=== PATIENT | female | born 1990 | race Caucasian/White ===

== ENCOUNTER → 2020-11-17 13:28 | Outpatient (BNVA) | payer OTHER, SELFPAY | PROVIDERS: Family Provider Family Medicine; PCP Electrodiagnostic Medicine; Visit Provider Nurse Practitioner Women's Health | DX: N92.6 Irregular menstruation, unspecified (principal); K21.9 Gastro-esophageal reflux disease without esophagitis; E28.2 Polycystic ovarian syndrome; I10 Essential (primary) hypertension; J45.40 Moderate persistent asthma, uncomplicated; F41.9 Anxiety disorder, unspecified | CPT/HCPCS: 81025 ==

== ENCOUNTER → 2020-12-28 10:52 | Outpatient (BNVA) | payer OTHER, MEDICAID, SELFPAY | PROVIDERS: Family Provider Family Medicine; PCP Electrodiagnostic Medicine; Visit Provider Obstetrics & Gynecology | DX: O09.899 Supervision of other high risk pregnancies, unspecified trimester (principal); Z3A.00 Weeks of gestation of pregnancy not specified | CPT/HCPCS: 80053; 80307; 82570; 82950; 83036; 84156; 84315; 84443; 84550; 85027; 86592; 86762; 86803; 86850; 86900; 87086; 87340 ==

== ENCOUNTER → 2020-12-31 08:09 | Outpatient (BNVA) | payer OTHER, SELFPAY | PROVIDERS: Family Provider Family Medicine; PCP Electrodiagnostic Medicine; Visit Provider Obstetrics & Gynecology | DX: O09.899 Supervision of other high risk pregnancies, unspecified trimester (principal); Z3A.00 Weeks of gestation of pregnancy not specified | CPT/HCPCS: 82951; 82952 ==

== ENCOUNTER → 2021-01-04 08:24 | Outpatient (BNVA) | payer OTHER, SELFPAY | PROVIDERS: Family Provider Family Medicine; PCP Electrodiagnostic Medicine; Visit Provider Obstetrics & Gynecology | DX: O09.899 Supervision of other high risk pregnancies, unspecified trimester (principal); O34.219 Maternal care for unspecified type scar from previous cesarean delivery; Z3A.00 Weeks of gestation of pregnancy not specified | CPT/HCPCS: 84315; 87491; 87591 ==

== ENCOUNTER → 2021-01-25 00:01 | Outpatient (BNVA) | payer OTHER, SELFPAY | PROVIDERS: Family Provider Family Medicine; PCP Electrodiagnostic Medicine; Visit Provider Obstetrics & Gynecology | DX: I10 Essential (primary) hypertension (principal) | CPT/HCPCS: 84156 ==

== ENCOUNTER 2021-01-31 09:20 | Outpatient (CLI) | payer OTHER, MEDICAID, SELFPAY ==
--- NOTE | 2021-01-31 09:30 | USCV_ITS ---
Chloe Dorman Age: 30 Gender: F : 1990 Exam Date: 01/31/2021 09:42 Ordering Phys: Jacobo Villarreal MD Technologist: Carla Bowers [place] [facility] [place]: ESSENTIAL HTN, 16 WEEKS BP: 120 / 75 HR: 83 Rhythm: Sinus Technical Quality: Adequate MEASUREMENTS (Male / Female) Normal Values 2D ECHO LV Diastolic Diameter PLAX 3.9 cm 4.2 - 5.9 / 3.9 - 5.3 cm LV Systolic Diameter PLAX 2.3 cm IVS Diastolic Thickness 1.0 cm 0.6 - 1.0 / 0.6 - 0.9 cm IVS Systolic Thickness 1.3 cm LVPW Diastolic Thickness 1.5 cm 0.6 - 1.0 / 0.6 - 0.9 cm LVPW Systolic Thickness 1.9 cm LVOT Diameter 2.0 cm LV Ejection Fraction 2D Teich 73.0 % LV Ejection Fraction MOD 2C 79.4 % LV Ejection Fraction 2C AL 80.1 % LA Diameter 2.3 cm LA Width 2.7 cm LA Height 5.0 cm RA Width 2.7 cm RA Height 3.7 cm Aorta at Sinotubular Diameter 2.8 cm DOPPLER AV Peak Velocity 147.0 cm/s LVOT Peak Velocity 108.0 cm/s AV Area Cont Eq vti 2.3 cm squared AV Area Cont Eq pk 2.4 cm squared MV Peak Velocity 107.0 cm/s MV Area PHT 4.2 cm squared Mitral E to A Ratio 1.0 MV E' Velocity 44.0 cm/s Mitral E to MV E' Ratio 9.2 Mitral E to LV E' Lateral Ratio 8.9 Mitral E to LV E' Septal Ratio 9.7 TR Peak Velocity 94.3 cm/s TR Peak Gradient 3.6 mmHg Right Atrial Pressure 3.0 mmHg Pulmonary Artery Systolic Pressu 6.6 mmHg PV Peak Velocity 107.0 cm/s RV Acceleration Time 0.2 s RV Ejection Time 0.3 s RV AcT/ET 0.5 FINDINGS Left Ventricle Normal left ventricular size and systolic function, EF 71 %. No regional wall motion abnormalities. Right Ventricle The right ventricle is normal in size and function. Right Atrium The right atrium is normal in size. Left Atrium The left atrium is normal in size. Mitral Valve Trace mitral valve regurgitation. Aortic Valve Structurally normal trileaflet aortic valve. Tricuspid Valve No gross abnormalities noted Pulmonic Valve No gross abnormalities noted Pericardium Normal pericardium without effusion. Aorta Normal ascending aorta dimension. CONCLUSIONS Normal left ventricular size and systolic function, EF 71 %. No regional wall motion abnormalities. Trace mitral valve regurgitation. Normal cardiac chamber sizes. No intracardiac masses No intracardiac shunts by color flow Doppler exam No previous study is available for comparison. Dr Austin Whitaker MD FACC (Electronically Signed) Final Date: 31 January 2021 23:04 S
== END 2021-01-31 09:21 | disposition home or self-care (01) ==
LOC: US 09:22
PROVIDERS: PCP Electrodiagnostic Medicine; Visit Provider Obstetrics & Gynecology
DX: O10.012 Pre-existing essential hypertension complicating pregnancy, second trimester (principal); I34.0 Nonrheumatic mitral (valve) insufficiency
CPT/HCPCS: 93306

== ENCOUNTER 2021-03-03 12:39 | Outpatient (CLI) | payer OTHER, MEDICAID, SELFPAY ==
--- NOTE | 2021-03-03 12:58 | ECG_ITS ---
[facility] Test Date: 2021-03-03 Pat Name: Chloe Dorman Department: Room: Gender: Female Interactive Producer: : 1990 Requested By: Jacobo Villarreal Order Number: [id number] Cassidy MD: Enrrique Blackburn M.D. Measurements Intervals [place] Rate: 84 P: 13 NM: 130 QRS: 28 QRSD: 101 T: 21 QT: 374 QTc: 445 Interpretive Statements SINUS RHYTHM Compared to ECG 03/08/2019 19:12:15 Short NM interval no longer present Electronically Signed On 03-03-2021 17:13:55 CDT by Enrrique Blackburn M.D. [id number] f
== END 2021-03-03 12:40 | disposition home or self-care (01) ==
LOC: RT 12:42
PROVIDERS: PCP Electrodiagnostic Medicine; Visit Provider Obstetrics & Gynecology
DX: I10 Essential (primary) hypertension (principal)
CPT/HCPCS: 93005

== ENCOUNTER 2021-04-16 10:55 | Outpatient (CLI) | payer OTHER, MEDICAID, SELFPAY ==
[2021-04-16] VITALS (17 sets, daily range): BP systolic 125–173; BP diastolic 68–103; PULSE 67–99; RESP 18; TEMP 36.8; O2SAT 97–99; BMI 39.4
[2021-04-16] MEDS: labetalol 200 mg Tablet 100 MG PO (12:18)
[2021-04-16 13:09] LABS: Bacteria Urine 1+ /hpf; Bilirubin Urine Neg (Negative); Blood Urine Neg (Negative); Glucose Urine UA Norm (Normal); Ketones Urine Negative (Negative); Leukocyte Esterase Urine Negative (Negative); Nitrate Urine Negative (Negative); Protein Urine Neg (Negative); Specific Gravity, Urine 1.015 (1.005-1.030); Urine Appearance Clear (CLEAR); Urine Color Yellow (Yellow); Urobilinogen Urine Norm (Negative); WBC Urine 0-4 /hpf (0-5); pH Urine 7 (5-7)
[2021-04-16 13:10] LABS: Add Urine Culture? No
[2021-04-16 13:55] LABS: Basophils # 0.1 10^3/uL (0.0-0.1); Basophils % 0.3 %; Eosinophils # 0.1 10^3/uL (0.0-0.8); Eosinophils % 0.9 %; Hematocrit 37.2 % (37.0-47.0); Hemoglobin 11.9 g/dL (11.5-15.3); Lymphocytes # 1.9 10^3/uL (0.8-4.8); Lymphocytes % 12.9 %; Mean Corpuscular Hemoglobin 27.5 pg (28.0-34.0); Mean Corpuscular Volume 86.1 fl (81-99); Monocytes % 6.6 %; Neutrophils # 11.51 10^3/uL (1.8-7.7); Neutrophils % 78.9 %; Nucleated Red Blood Cells % 0 %; Platelet Count 293 10^3/cmm (130-400); Red Blood Count 4.32 10^6/uL (4.1-5.3); Red Cell Distribution Width 13.2 % (12.1-15.1); White Blood Count 14.6 10^3/uL (4.0-10.0)
[2021-04-16 14:19] LABS: Alanine Aminotransferase 9 U/L (0-33); Albumin Level 3.3 g/dL (3.5-5.2); Alkaline Phosphatase 72 IU/L (35-105); Anion Gap 16.8 (5-19); Aspartate Amino Transferase 9 U/L (0-32); Blood Urea Nitrogen 6 mg/dL (6-20); Calcium 8.6 mg/dL (8.5-10.5); Carbon Dioxide 21 mmol/L (22-29); Chloride 106 mmol/L (98-107); Globulin 2.8 g/dL (1.3-4.6); Glucose 80 mg/dL (65-115); Osmolality Calculated 287 mOsm/kg (285-295); Potassium 3.8 mmol/L (3.5-5.1); Sodium 140 mmol/L (136-145); Total Bilirubin 0.2 mg/dL (0.15-1.2); Total Protein 6.1 g/dL (6.6-8.7); Uric Acid 3.8 mg/dL (2.4-5.7)
[2021-04-16 14:24] LABS: UPRO/UCREAT Ratio 0.21 mg/mg CR; Urine Creatinine 53 mg/dL (28-217); Urine Protein Random 11 mg/dL
== END 2021-04-16 14:45 | disposition home or self-care (01) ==
LOC: OPOB 10:59 → OBGYN 11:00
PROVIDERS: PCP Electrodiagnostic Medicine; Visit Provider Obstetrics & Gynecology
DX: O36.8190 Decreased fetal movements, unspecified trimester, not applicable or unspecified (principal); Z3A.00 Weeks of gestation of pregnancy not specified
CPT/HCPCS: 36415; 59025; 80053; 81001; 82570; 84156; 84550; 85025; 99211

== ENCOUNTER → 2021-04-25 08:06 | Outpatient (BNVA) | payer OTHER, MEDICAID, SELFPAY | PROVIDERS: PCP Electrodiagnostic Medicine; Visit Provider Obstetrics & Gynecology | DX: O09.899 Supervision of other high risk pregnancies, unspecified trimester (principal) | CPT/HCPCS: 82951; 82952; 84315; 85027 ==

== ENCOUNTER → 2021-05-04 14:13 | Outpatient (BNVA) | payer OTHER, MEDICAID, SELFPAY | PROVIDERS: PCP Electrodiagnostic Medicine; Visit Provider Obstetrics & Gynecology | DX: O09.899 Supervision of other high risk pregnancies, unspecified trimester (principal) | CPT/HCPCS: 81000 ==

== ENCOUNTER → 2021-05-09 13:12 | Outpatient (BNVA) | payer OTHER, MEDICAID, SELFPAY | PROVIDERS: PCP Electrodiagnostic Medicine; Visit Provider Obstetrics & Gynecology | DX: O09.899 Supervision of other high risk pregnancies, unspecified trimester (principal) | CPT/HCPCS: 84315; 87635 ==

== ENCOUNTER 2021-05-30 09:25 | Outpatient (CLI) | payer OTHER, MEDICAID, SELFPAY ==
[2021-05-30 09:30] VITALS: BMI 37.4
[2021-05-30 09:38] VITALS: BP 122/79; PULSE 82
[2021-05-30 09:43] VITALS: RESP 18; TEMP 36.7
--- NOTE | 2021-05-30 09:43 | US_ITS ---
WS: [id number] BIOPHYSICAL PROFILE AMNIOTIC FLUID HISTORY: Gestational DM, HTN COMPARISON: 05/23/2019 Cardiac activity: 147 bpm. Cervix: closed. Placenta: Posterior, no previa or abruption. Placenta grade: 2 Parameters are as follows: Breathin Movement: 2 Tone: 2 Fluid volume: 2 Amniotic fluid index: 10.8 cm which is between the fifth and 50th percentile. Largest vertical pocket 5.6 cm. US/US OB BPP wo NST 16980 IMPRESSION: 1. Biophysical profile score: 8/8. 2. Low normal amniotic fluid index.
[2021-05-30 09:58] VITALS: BP 117/75; PULSE 78
--- NOTE | 2021-05-30 11:20 | PM.ACPR ---
Procedure/Consent Procedure Narrative: NONSTRESS TEST: Place of test: [facility]-Labor and Delivery Indication: 31-year-old 2 para 1-0-0-1, gestational diabetes, chronic hypertension on medication at 33 weeks gestation Date and time of test: 05/30/2021 Baseline: 140 Variability: Moderate variability Accelerations: Accelerations present Decelerations: No decelerations Tocometry: no Contractions INTERPRETATION: NST reactive-correlate with BPP, continue kick counts
== END 2021-05-30 11:20 | disposition home or self-care (01) ==
LOC: OPOB 09:25 → OBGYN 09:27
PROVIDERS: PCP Electrodiagnostic Medicine; Visit Provider Obstetrics & Gynecology
DX: O24.419 Gestational diabetes mellitus in pregnancy, unspecified control (principal); Z3A.00 Weeks of gestation of pregnancy not specified; O16.9 Unspecified maternal hypertension, unspecified trimester
CPT/HCPCS: 59025; 76819; 84315

== ENCOUNTER → 2021-06-21 09:50 | Outpatient (BNVA) | payer OTHER, MEDICAID, SELFPAY | PROVIDERS: PCP Electrodiagnostic Medicine; Visit Provider Obstetrics & Gynecology | DX: O24.419 Gestational diabetes mellitus in pregnancy, unspecified control (principal) | CPT/HCPCS: 84315; 87081 ==

== ENCOUNTER 2021-06-26 08:30 | Inpatient (IN) | payer OTHER, MEDICAID, SELFPAY ==
[2021-06-25 23:00] VITALS: RESP 18; BMI 37.7
[2021-06-25 23:07] VITALS: BP 159/84; PULSE 75
[2021-06-25 23:21] VITALS: BP 156/84; PULSE 80
[2021-06-25 23:41] VITALS: BP 165/100; PULSE 76
[2021-06-25 23:52] VITALS: BP 161/86; PULSE 82
[2021-06-26] VITALS (54 sets, daily range): BP systolic 115–181; BP diastolic 59–112; PULSE 67–111; RESP 16–18; TEMP 35.7–36.7; O2SAT 96–100
[2021-06-26 00:39] LABS: Add Urine Microscopic? NO; Charge for UA Resulting for Rev
[2021-06-26 00:44] LABS: Basophils # 0.1 10^3/uL (0.0-0.1); Basophils % 0.4 %; Eosinophils # 0.1 10^3/uL (0.0-0.8); Hematocrit 43.5 % (37.0-47.0); Lymphocytes # 2.1 10^3/uL (0.8-4.8); Mean Corpuscular HGB Conc 32.2 g/dL (30.0-36.0); Mean Corpuscular Hemoglobin 27.4 pg (28.0-34.0); Mean Corpuscular Volume 85.1 fl (81-99); Mean Platelet Volume 10.5 fL (7.4-10.4); Monocytes % 7.1 %; Neutrophils # 10.82 10^3/uL (1.8-7.7); Neutrophils % 76.2 %; Nucleated Red Blood Cells % 0 %; Platelet Count 280 10^3/cmm (130-400); Red Blood Count 5.11 10^6/uL (4.1-5.3); Red Cell Distribution Width 13.9 % (12.1-15.1); White Blood Count 14.2 10^3/uL (4.0-10.0)
[2021-06-26 00:45] LABS: Bilirubin Urine Neg (Negative); Blood Urine Neg (Negative); Glucose Urine UA Norm (Normal); Ketones Urine 1+ (Negative); Leukocyte Esterase Urine Negative (Negative); Nitrate Urine Negative (Negative); Protein Urine Neg (Negative); Specific Gravity, Urine 1.015 (1.005-1.030); Urine Appearance Clear (CLEAR); Urine Color Yellow (Yellow); Urobilinogen Urine 1 mg/dL (Negative); pH Urine 6.5 (5-7)
[2021-06-26 01:01] LABS: Urine Creatinine 111 mg/dL (28-217); Urine Protein Random 12 mg/dL
[2021-06-26 01:03] LABS: Alanine Aminotransferase 12 U/L (0-33); Albumin Level 3.7 g/dL (3.5-5.2); Alkaline Phosphatase 150 IU/L (35-105); Anion Gap 15.9 (5-19); Aspartate Amino Transferase 17 U/L (0-32); Blood Urea Nitrogen 7 mg/dL (6-20); Calcium 9.5 mg/dL (8.5-10.5); Carbon Dioxide 20 mmol/L (22-29); Chloride 106 mmol/L (98-107); Globulin 3.1 g/dL (1.3-4.6); Glomerular Filtration Rate 115.9 mL/min (90-130); Glucose 86 mg/dL (65-115); Osmolality Calculated 283 mOsm/kg (285-295); Potassium 3.9 mmol/L (3.5-5.1); Sodium 138 mmol/L (136-145); Total Bilirubin 0.3 mg/dL (0.15-1.2); Total Protein 6.8 g/dL (6.6-8.7); Uric Acid 4.5 mg/dL (2.4-5.7)
[2021-06-26 01:10] LABS: UPRO/UCREAT Ratio 0.11 mg/mg CR
--- NOTE | 2021-06-26 01:15 | USR_ITS ---
PROCEDURE INFORMATION: Exam: US , Limited Exam date and time: 06/26/2021 1:15 AM Age: 31 years old Clinical indication: Screening exam; Routine US, uterus; Additional info: Verification of presentation TECHNIQUE: Imaging protocol: Real-time ultrasound of the maternal uterus with image documentation. Exam focused on the clinical indication. COMPARISON: 1. [facility] 2021-06-21 08:10 2. US OB BPP w NST [facility] 2021-06-14 08:47 FINDINGS: Gestation: Intrauterine gestation. heart rate: heart rate 153 bpm. presentation: Breech presentation with legs up. Amniotic fluid index: Amniotic fluid index 13 cm. BIOMETRY: Gestational age (AUA): Gestational age 37 weeks and 1 day. US/US OB limited [id number] IMPRESSION: 1. Breech presentation with legs up. 2. Amniotic fluid index 13.
[2021-06-26] MEDS: terbutaline 1 mg/mL INJ 0.25 MG SUBCUT (02:28)
[2021-06-26 04:51] LABS: Glucose Point of Care 86 mg/dL (70-110)
[2021-06-26 04:51] LABS: Glucose Point of Care 80 mg/dL (70-110)
[2021-06-26 06:33] LABS: Glucose Point of Care 72 mg/dL (70-110)
[2021-06-26] MEDS: citric acid-sodium citrate 30 mL UDC PO (07:28)
[2021-06-26] MEDS: lactated ringers 1,000 ML 999 ML (07:28)
[2021-06-26] MEDS: famotidine 20 mg/2 mL INJ IVP (07:29)
[2021-06-26] MEDS: metoclopramide 5 mg/mL SDV 2 mL 10 MG IVP (07:29)
--- NOTE | 2021-06-26 07:51 | PM.OPHPUD ---
Labor & Delivery H&P Update Date of Procedure: June 26, 2021 Date H&P Performed: 06/21/21 Changes to previous documentation: Mrs. Dorman 31 y/o female came to labor and delivery with CC of contractions and thinking she had rupture membranes referring fluid discharge. Upon examination she had 5cm cervix dilation showing contractions q 3 minutes. Presentation was in question and an ultrasound was ordered. The ultrasound teresa fetus in jillian breech presentation. The patient was given tocolitics to slowdown contraction to avoid memebranes ruptured and prevent a cord prolapse. The patient and her were counseled regarding findings and recommendation for a repeat delivery. She and her agreed to the repeat delivery. Admission Diagnosis: Term Breech presentation Early labor. Previous delivery Primary indication for procedure: Previous delivery. Breech presentation Planned procedure: Operation Date: 06/26/21 08:30 Proposed Procedures p Section Repeat(Not Applicable) - Mikhail Mcintyre MD Related Problem List Diagnoses (1) Previous delivery affecting , antepartum: (2) Gestational diabetes: (3) Breech presentation on examination: (4) Obesity affecting , antepartum: (5) Tobacco use affecting , antepartum:
--- NOTE | 2021-06-26 07:53 | P.ANESASSM_ITS ---
Pre-Anesthetic Assessment Height/Weight: Height 1.83 m Weight 126.099 kg Temp Pulse Resp BP 96.3 F L 75 18 126/69 06/26/21 04:48 06/26/21 07:08 06/25/21 23:00 06/26/21 07:08 Familial anesthetic complications: None Was Beta Gavin taken within 24 hours: N/A Was Clonidine taken within 24 hours: N/A Last intake: > 8 hrs Social Tobacco and No alcohol Exam alert, oriented x 3, clear to auscultation bilaterally and regular rate & rhythm Airway Mallampati: Class IV Dentition: full Pulmonary Asthma CV/HEM Hypertension GI Gastroesophageal Reflux Disease Metabolic Diabetes Mellitus (gestational) and Morbid Obesity Anesthetic Plan ASA status: 3 Anesthesia: Regional (specify below) Risk of > 500 ml blood loss (7ml/kg in children): Yes, adequate IV access and fluids planned Medications/Allergies Home Medications Medication Instructions Recorded Confirmed Last Taken Type fluticasone 250 mcg-salmeterol 50 See Rx Instructions INHALATION BID 07/02/20 06/26/21 06/25/21 08:00 History mcg/dose blistr powdr for inhalation (Advair Diskus) prenat.vits,anette,bjm-qpcq-oarrc 1 tab PO DAILY 11/17/20 06/26/21 06/25/21 20:30 History aspirin 81 mg tablet,delayed 81 mg PO DAILY #90 tab 12/28/20 06/26/21 06/25/21 08:00 Rx release albuterol sulfate 90 mcg/actuation 1 - 2 inh INHALATION Q4H PRN #6.7 g 03/02/21 06/26/21 Unknown Rx aerosol inhaler (ProAir HFA) cetirizine 10 mg capsule (Zyrtec) 10 mg PO DAILY 03/02/21 06/26/21 06/25/21 20:30 History metoprolol succinate 50 mg 50 mg PO DAILY #30 tab 04/01/21 06/26/21 06/25/21 08:00 Rx tablet,extended release 24 hr blood sugar diagnostic (Accu-Chek #100 ea 05/02/21 06/21/21 Unknown Rx Guide test strips) blood-glucose meter (Accu-Chek #1 ea 05/02/21 06/21/21 Unknown Rx Guide Glucose Meter) lancets (Accu-Chek Softclix #200 ea 05/02/21 06/21/21 Unknown Rx Lancets) Allergies Allergy/AdvReac Type Severity Reaction Status Date / Time No Known Allergies Allergy Verified 06/26/21 03:08 [facility] Anesthesia Medical History Asthma, moderate persistent Diagnosed as a child however she outgrew it at the age of 9 or 11. She states that since her delivery in 2014 her symptoms have gotten worse and she has been on medication by her primary care provider. 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 Benign essential hypertension Diagnosed in 2014 after the of her child. Had gestational hypertension which never resolved . She is on metoprolol managed by her primary care provider Prior to this and states that she was well controlled this GERD (gastroesophageal reflux disease) Symptoms are much better since cholecystectomy however she does take pantoprazole daily to help prevent symptoms. No pertinent past medical history Denies diabetes, seizures, DVT/PE PCP: Dr. Golden PCOS (polycystic ovarian syndrome) Diagnosed in 2009 when she had irregular cycles 2 or 3 times a year and i ncreased facial hair. -Has been on Metformin on and off for the last 10 years. Has had 30-day cycl es since 2017. Surgical History H/O section (12/06/14) Stat section for bradycardia (documented LTCS with vertical skin incision). Performed by Dr. Tran at [facility] [place]. -Double layer closure with inferior extension noted Hx laparoscopic cholecystectomy (05/14/18) Performed by Dr. Bermudez at [facility] [place] Hx of tonsillectomy At the age of 3-4 Family History Mother Diabetes Heart attack Hypertension Father Diabetes Stroke Hypertension Heart attack Grandmother Hypertension MATERNAL Family/Other Breast cancer Paternal Aunt--dx age 80's Denies family history of Colon cancer Ovarian cancer Hypercholesteremia Uterine cancer Thyroid disease Female Reproductive History : 2 Data Anesthesia : 06/26/21 00:20 06/26/21 00:20 Short CBC 06/26/21 Range/Units 00:20 WBC 14.2 H (4.0-10.0) 10^3/uL Hgb 14.0 (11.5-15.3) g/dL Hct 43.5 (37.0-47.0) % MCV 85.1 (81-99) fl Plt Count 280 (130-400) 10^3/cmm Neut % (Auto) 76.2 % Neut # (Auto) 10.82 H (1.8-7.7) 10^3/uL BMP 06/26/21 00:20 Sodium 138 Potassium 3.9 Chloride 106 Carbon Dioxide 20 L BUN 7 Creatinine 0.6 Glucose 86 Calcium 9.5 Liver Function 06/26/21 Range/Units 00:20 Total Bilirubin 0.3 (0.15-1.2) mg/dL AST 17 (0-32) U/L ALT 12 (0-33) U/L Alkaline Phosphatase 150 H (35-105) IU/L Albumin 3.7 (3.5-5.2) g/dL Urine 06/26/21 Range/Units 00:20 Urine Color Yellow (Yellow) Urine Appearance Clear (CLEAR) Urine pH 6.5 (5-7) Ur Specific [place] 1.015 (1.005-1.030) Urine Protein Neg (Negative) Urine Glucose (UA) Norm (Normal) Urine Ketones 1+ H (Negative) Urine Nitrate Negative (Negative) Urine Bilirubin Neg (Negative) Ur Leukocyte Esterase Negative (Negative) Cardiac Studies: Echocardiogram 01/31/21
--- NOTE | 2021-06-26 09:34 | P.PCN_ITS ---
PACU note Narrative: VSS, Good respiratory effort, report to GEOTECHNICAL OPERATING ENGINEER Exam: awake
--- NOTE | 2021-06-26 09:34 | PM.PACU ---
PACU note Narrative: VSS, Good respiratory effort, report to HOLLOW HANDLE BENCH WORKER Exam: awake
--- NOTE | 2021-06-26 09:36 | P.OP_ITS ---
Operative Report Date of procedure: June 26, 2021 Pre-op diagnosis: Term . Previous delivery. Breech presentation. Gestational diabetes. Obesity. Post-op diagnosis: Same as above Post-op findings: Jillian breech presentation female with nuchal cord, and umbilical cord with True knot. Procedure done: Repeat low transverse delivery Implants: None Surgeon: Mikhail Mcintyre MD Estimated blood loss: 500 mL IV fluids: 2000 mL Urine output: 50 mL Complications: None Findings: Female breech presentation. Apgars 8/8 Procedure: After assuring informed consent, the patient was taken to the operating room and anesthesia was initiated. She was placed in the dorsal supine position with a left lateral tilt. The abdomen was prepped and draped in the usual sterile manner. A time-out procedure was performed. A Pfannenstiel skin incision was made with the scalpel and carried through to the underlying layer of fascia with the Bovie. The fascia was nicked in the midline and the incision extended laterally with the Pitts scissors. The superior aspect of the fascial incision was then grasped with Sadie clamps and elevated and the underlying rectus muscle dissected off bluntly and sharp with pitts scissors dense adhesions. Attention was then turned to the inferior aspect of the incision which, in si milar fashion, was grasped and tented up with Sadie clamps and the rectus muscle dissected bluntly. The rectus muscles were then in the midline and the peritoneum identified, tented up and entered sharply with Metzenbaum scissors. The peritoneal incision was then extended superiorly and inferiorly with good visualization of the bladder. The Al O retractor was then inserted and the vesicouterine peritoneum identified, grasped with pickups and entered sharply with Metzenbaum scissors. This incision was then extended laterally and the bladder flap created digitally. The uterus incised in a low transverse fashion with the scalpel. The uterine incision was then extended with the bandage scissors. The infant was then delivered in the breech presentation atraumatically. At 0842 she brought the jillian breech out to just above the umbilicus. While supporting the body, then pressure was exerted in the popliteal space of the knee. Then flexion of the knee follows, and the lower leg is swept medially down and out of the vagina using the Pinard maneuver. The nose and the mouth were suctioned with bulb and the cord clamped and cut. The cord was normal and had three vessels. Amniotic fluid was clear. The placenta was then removed manually and the uterus exteriorized and cleared of all clots and debris. The uterine incision was repaired with 0 Vicryl in a running-locked fashion. A second layer of the same suture was used to obtain excellent hemostasis. The gutters were cleared of all clots. The left fallopian tube was identified and grasped with a Kan clamp. The tube was then followed out to the fimbria. An avascular midsection of the fallopian tube was grasped with a [place] clamp and brought into a knuckle. The tube was doubly ligated with an O-plain suture and transected. The specimen was sent to pathology. Excellent hemostasis was noted. The same procedure was performed on the opposite fallopian tube. The uterus was then returned to the abdomen. The rectus muscles were approximated with 3-0 chromic gut. The ON-Q pain management system placed. The fascia was reapproximated with 0 Vicryl in an interrupted running fashion. The skin was closed with Insorb?s subcuticular absorbable joanne. Exparel was infiltrated at the incision site for pain management. the patient tolerated the procedure well. The sponge, lap and needle counts were correct times three.
[2021-06-26] MEDS: HYDROcodone-acetaminophen 5-325 mg Tablet PO ×2 (13:33→21:28)
[2021-06-26] MEDS: ketorolac 30 mg/mL INJ IVP ×2 (15:37→21:28)
[2021-06-26] MEDS: dextrose 5%-lactated ringers 1,000 ML 125 ML IV (15:38)
[2021-06-26] MEDS: docusate sodium 100 mg Capsule PO (18:50)
[2021-06-26] MEDS: metoprolol succinate ER (24 HR) 50 mg Tablet PO (20:48)
[2021-06-26 22:23] LABS: Hematocrit 38.2 % (37.0-47.0); Hemoglobin 12.4 g/dL (11.5-15.3); Mean Corpuscular HGB Conc 32.5 g/dL (30.0-36.0); Mean Corpuscular Hemoglobin 27.9 pg (28.0-34.0); Mean Corpuscular Volume 85.8 fl (81-99); Mean Platelet Volume 10.6 fL (7.4-10.4); Platelet Count 253 10^3/cmm (130-400); Red Blood Count 4.45 10^6/uL (4.1-5.3); Red Cell Distribution Width 13.9 % (12.1-15.1)
[2021-06-27 00:09] VITALS: BP 144/98; PULSE 66; RESP 17; TEMP 36.6; O2SAT 97
[2021-06-27] MEDS: HYDROcodone-acetaminophen 5-325 mg Tablet PO ×4 (01:39→20:06)
[2021-06-27] MEDS: ketorolac 30 mg/mL INJ IVP (03:46)
[2021-06-27 03:50] VITALS: BP 158/98; PULSE 69; RESP 17; TEMP 36.7; O2SAT 97
--- NOTE | 2021-06-27 08:02 | PM.PN ---
Subjective Subjective: Mrs. dorman S/P repeat LTCD POD 1 Vitals/I&O/Wt Last Vital Signs Temp 97.8 F 06/28/21 09:00 Pulse 60 06/28/21 15:47 Resp 17 06/28/21 15:47 BP 146/90 06/28/21 15:47 Pulse Ox 96 06/28/21 09:00 Physical Exam Narrative: GA: Alert and oriented ?3. HEENT: WNL. Breasts: engorged Nipples - skin intact Heart: Regular rate and rhythm. Lungs: Clear to auscultation bilaterally. Abdomen: Bowel sounds present,minimal tenderness, incision clean and dry, no redness, pain or edema. Uterine fundus below umbilicus. No Fundal Tenderness. MONUMENTAL STONEMASON: No bleeding. Extremities: No edema, no cyanosis, no calves pain. Urinary Catheter Management: Mackey: Cath Placed During This Visit: yes, but has since been removed by the nurse Reason for Continuing Indwelling Catheter: Perioperative Use in Selected Surgeries Urinary Catheter Date of Insertion: 06/26/21 Urinary Catheter Time of Insertion: 07:25 Date Urinary Catheter Removed: 06/26/21 Time Urinary Catheter Discontinued: 20:30 Data : 06/26/21 21:50 06/26/21 00:20 A&P Assessment and plan (1) Status post repeat low transverse section: Mrs. Dorman 31-year-old female status post repeat delivery postoperative day 1. She is afebrile and hemodynamically stable. Ambulating without difficulty. Tolerating diet well. Status: Acute Attestations Medical Necessity Statement*: In my professional opinion per admitting diagnosis. Coding Level of Care Code Acute Air Traffic Control Specialist [facility] Diagnoses Status post repeat low transverse section Z98.891
[2021-06-27] MEDS: ferrous sulfate EC 325 mg Tablet PO (08:22)
[2021-06-27] MEDS: docusate sodium 100 mg Capsule PO (08:22)
[2021-06-27] MEDS: metoprolol succinate ER (24 HR) 50 mg Tablet PO (08:22)
[2021-06-27] MEDS: prenatal vitamin Capsule 1 CAP PO (08:22)
[2021-06-27 10:05] VITALS: BP 146/83; PULSE 68; TEMP 36.5; O2SAT 98
[2021-06-27 17:55] VITALS: BP 154/99; PULSE 71; TEMP 36.4; O2SAT 97
[2021-06-27] MEDS: ondansetron 2 mg/ML SDV 2 mL 4 MG IVP (20:06)
[2021-06-27] MEDS: ibuprofen 800 mg tablet PO (21:24)
[2021-06-27 22:24] VITALS: BP 144/84; PULSE 86; RESP 15; TEMP 36.5
[2021-06-28] MEDS: HYDROcodone-acetaminophen 5-325 mg Tablet PO ×3 (04:33→18:31)
[2021-06-28 05:06] VITALS: BP 128/83; PULSE 63; TEMP 36.4
[2021-06-28 09:00] VITALS: BP 143/87; PULSE 68; RESP 16; TEMP 36.6; O2SAT 96
[2021-06-28] MEDS: docusate sodium 100 mg Capsule PO ×2 (09:11→18:31)
[2021-06-28] MEDS: prenatal vitamin Capsule 1 CAP PO (09:11)
[2021-06-28] MEDS: ibuprofen 800 mg tablet PO ×2 (09:12→15:44)
[2021-06-28] MEDS: metoprolol succinate ER (24 HR) 50 mg Tablet PO (09:17)
[2021-06-28 09:40] VITALS: BP 150/70; PULSE 66; RESP 17
[2021-06-28 15:47] VITALS: BP 146/90; PULSE 60; RESP 17
--- NOTE | 2021-06-28 17:46 | PM.OBGYDC ---
Discharge Providers PSYCH ASSISTANT Date of Admission: 06/26/21 08:30 Date of Discharge: 06/28/21 Attending Provider at Admission: Mikhail Mcintyre MD Attending Provider at Discharge: Mikhail Mcintyre MD Primary Care Provider: Sarabjit Golden DO Diagnoses at Discharge Discharge Diagnosis (1) Status post repeat low transverse section: Status: Acute Reason for Visit Reason for Visit: Possible ROM Hospital Course Hospital Course Ms. Dorman is a 31 year old 2 Para 1001 with an LMP of 10/09/2020 and an EDC 07/16/2021, placing her at 37 weeks. Came to labor and delivery with CC of contractions and thinking she had rupture membranes referring fluid discharge. Upon examination she had 5cm cervix dilation showing contractions q 3 minutes. Presentation was in question and an ultrasound was ordered. The ultrasound teresa fetus in jillian breech presentation. The patient was given tocolitics to slowdown contraction to avoid memebranes ruptured and prevent a cord prolapse. The patient and her were counseled regarding findings and recommendation for a repeat delivery. She and her agreed to the repeat delivery. A repeat low transverse delivery was performed without complications. She delivered a female infant in breech presentation, Apgars 8/8, with a birthweight of 3110 g. She is afebrile and hemodynamically stable, postoperative day 2. Ambulating without difficulty. Tolerating diet well. Pain well under control. Information Peripartum Data: Delivery Method: Physical Exam Narrative: GA: Alert and oriented ?3. HEENT: WNL. Heart: Regular rate and rhythm. Lungs: Clear to auscultation bilaterally. Abdomen: Bowel sounds present, minimal tenderness, incision clean and dry, no redness, pain or edema. Uterine fundus below umbilicus. No Fundal Tenderness. RESPIRATORY EQUIPMENT ASSISTANT: Normal lochia. Extremities: No edema, no cyanosis, no calves pain. Urinary Catheter Management: Mackey: Cath Placed During This Visit: yes, but has since been removed by the nurse Reason for Continuing Indwelling Catheter: Perioperative Use in Selected Surgeries Urinary Catheter Date of Insertion: 06/26/21 Urinary Catheter Time of Insertion: 07:25 Date Urinary Catheter Removed: 06/26/21 Time Urinary Catheter Discontinued: 20:30 History History History 2 Term 1 Miscarriages/Ectopic 0 0 Living Children 1 Discharge Data Studies Completed and Pending Completed Studies During Hospitalization Category Date Time Status [place] OB limited [address]209 Stat Ultrasound 06/26/21 01:15 Completed Radiology Impressions Obstetrics Ultrasound 06/26/21 01:15 IMPRESSION: 1. Breech presentation with legs up. 2. Amniotic fluid index 13. Laboratory Results WBC 12.0 10^3/uL (4.0-10.0) H 06/26/21 21:50 RBC 4.45 10^6/uL (4.1-5.3) 06/26/21 21:50 Hgb 12.4 g/dL (11.5-15.3) 06/26/21 21:50 Hct 38.2 % (37.0-47.0) 06/26/21 21:50 MCV 85.8 fl (81-99) 06/26/21 21:50 MCH 27.9 pg (28.0-34.0) L 06/26/21 21:50 MCHC 32.5 g/dL (30.0-36.0) 06/26/21 21:50 RDW 13.9 % (12.1-15.1) 06/26/21 21:50 Plt Count 253 10^3/cmm (130-400) 06/26/21 21:50 MPV 10.6 fL (7.4-10.4) H 06/26/21 21:50 Neut % (Auto) 76.2 % 06/26/21 00:20 Lymph % (Auto) 15.0 % 06/26/21 00:20 Foster % (Auto) 7.1 % 06/26/21 00:20 Eos % (Auto) 1.0 % 06/26/21 00:20 Baso % (Auto) 0.4 % 06/26/21 00:20 Neut # (Auto) 10.82 10^3/uL (1.8-7.7) H 06/26/21 00:20 Lymph # (Auto) 2.1 10^3/uL (0.8-4.8) 06/26/21 00:20 Foster # (Auto) 1.0 10^3/uL (0.2-0.9) H 06/26/21 00:20 Eos # (Auto) 0.1 10^3/uL (0.0-0.8) 06/26/21 00:20 Baso # (Auto) 0.1 10^3/uL (0.0-0.1) 06/26/21 00:20 Nucleated RBC % (auto) 0 % 06/26/21 00:20 Nucleated RBCs # 0.0 /100WBC 06/26/21 00:20 Sodium 138 mmol/L (136-145) 06/26/21 00:20 Potassium 3.9 mmol/L (3.5-5.1) 06/26/21 00:20 Chloride 106 mmol/L (98-107) 06/26/21 00:20 Carbon Dioxide 20 mmol/L (22-29) L 06/26/21 00:20 Anion Gap 15.9 (5-19) 06/26/21 00:20 BUN 7 mg/dL (6-20) 06/26/21 00:20 Creatinine 0.6 mg/dL (0.5-0.9) 06/26/21 00:20 GFR Calculation 115.9 mL/min (90-130) 06/26/21 00:20 Glucose 86 mg/dL (65-115) 06/26/21 00:20 POC Glucose 72 mg/dL (70-110) 06/26/21 06:29 Calculated Osmolality 283 mOsm/kg (285-295) L 06/26/21 00:20 Uric Acid 4.5 mg/dL (2.4-5.7) 06/26/21 00:20 Calcium 9.5 mg/dL (8.5-10.5) 06/26/21 00:20 Total Bilirubin 0.3 mg/dL (0.15-1.2) 06/26/21 00:20 AST 17 U/L (0-32) 06/26/21 00:20 ALT 12 U/L (0-33) 06/26/21 00:20 Alkaline Phosphatase 150 IU/L (35-105) H 06/26/21 00:20 Total Protein 6.8 g/dL (6.6-8.7) 06/26/21 00:20 Albumin 3.7 g/dL (3.5-5.2) 06/26/21 00:20 Globulin 3.1 g/dL (1.3-4.6) 06/26/21 00:20 Urine Color Yellow (Yellow) 06/26/21 00:20 Urine Appearance Clear (CLEAR) 06/26/21 00:20 Urine pH 6.5 (5-7) 06/26/21 00:20 Ur Specific Left Hand 1.015 (1.005-1.030) 06/26/21 00:20 Urine Protein Neg (Negative) 06/26/21 00:20 Urine Glucose (UA) Norm (Normal) 06/26/21 00:20 Urine Ketones 1+ (Negative) H 06/26/21 00:20 Urine Blood Neg (Negative) 06/26/21 00:20 Urine Nitrate Negative (Negative) 06/26/21 00:20 Urine Bilirubin Neg (Negative) 06/26/21 00:20 Urine Urobilinogen 1 mg/dL (Negative) H 06/26/21 00:20 Ur Leukocyte Esterase Negative (Negative) 06/26/21 00:20 U Random Total Protein 12 mg/dL 06/26/21 00:20 Urine Creatinine 111 mg/dL (28-217) 06/26/21 00:20 Protein/Creatinin Ratio 0.11 mg/mg CR 06/26/21 00:20 Vitals Last Vital Signs Temp 97.8 F 06/28/21 09:00 Pulse 60 06/28/21 15:47 Resp 17 06/28/21 15:47 BP 146/90 06/28/21 15:47 Pulse Ox 96 06/28/21 09:00 Discharge Plan Discharge Patient Disposition: Home Condition: Stable Prescriptions: New hydrocodone-acetaminophen 5-325 mg tablet 1 tab PO Q4H PRN (Reason: pain) Qty: 30 0RF acetaminophen 325 mg capsule 325 mg PO Q4H PRN (Reason: fever or pain) Qty: 60 0RF ibuprofen 800 mg tablet 800 mg PO TID PRN (Reason: pain) Qty: 60 0RF Continued prenat.vits,anette,[id number] Tablet 1 tab PO DAILY 0RF aspirin 81 mg tablet,delayed release (DR/EC) 81 mg PO DAILY Qty: 90 1RF Rx Instructions: Start at 12 weeks gestation Zyrtec 10 mg capsule 10 mg PO DAILY 0RF albuterol sulfate [ProAir HFA] 90 mcg/actuation HFA aerosol inhaler 1 - 2 inh inhalation Q4H PRN (Reason: shortness of breath or wheezing) Qty: 6.7 0RF fluticasone propion-salmeterol [Advair Diskus] 250-50 mcg/dose blister with device See Rx Instructions inhalation BID 0RF Rx Instructions: Strenght unknown inhalation twice a day; metoprolol succinate 50 mg tablet extended release 24 hr 50 mg PO DAILY Qty: 30 1RF (DME) blood-glucose meter [Accu-Chek Guide Glucose Meter] [facility] See Rx Instructions .Route Qty: 1 0RF Rx Instructions: As directed (DME) Accu-Chek Guide test strips Strip See Rx Instructions .Route Qty: 100 5RF Rx Instructions: As directed (DME) lancets [Accu-Chek Softclix Lancets] [facility] See Rx Instructions .Route Qty: 200 3RF Rx Instructions: Fasting in AM, 2 hours after each meal Discharge Orders: Discharge Order (Routine); Ordered 06/28/21 Ordered By: Mikhail Mcintyre Referrals: Mikhail Mcintyre MD [Physician] - 2 weeks Discharge Diet: Usual diet Discharge Activity: Limit activity as instructed Patient Instructions: Depression (DC), Bleeding (DC), Preeclampsia and Eclampsia After Delivery (GEN), OB [facility], OB Discharge Report, OB Food/Drug Interaction Guide, OB Care at Home, Opioid Safety, (DC) Activity Restrictions/Additional Instructions: 1. Please call [facility] on next working day to make your post-operative appointment in 2 weeks. 2. Please stay home until you come back to the clinic on first post-operative check up. 3. Please follow instructions on your medications CAREFULLY. 4. If you have abdominal incision, do not cover it unless dressing is necessary because of drainage. OK to shower, but avoid bath. Leave steri-strips until they fall off. If they are still on one week after surgery, you may remove them. 5. If you had vaginal surgery or vaginal repair, Dr. Mcintyre may instruct you to take SITZ bath. 6. Yellow, blood tinged odorous vaginal discharge is usually normal after hysterectomy or vaginal surgeries. 7. No sexual intercourse, tampons, or douches until you are completely released from the post-operative care. 8. Avoid constipation by eating right and maybe using some Metamucil or Milk of Magnesia. 9. All prescription refills are given during the working hours. Please do no wait till it runs out. Call the clinic at [phone] before your medication runs out. The clinic will get in touch with your doctor to prescribe medications if necessary. 10. Please remain within 40 mile radius from our hospital because emergencies do happen now and then during the post-operative period. 11. If you have stairs at home, take one step at a time slowly and minimize the number of trips. It helps to stay in one floor for the next few days. No lifting except what you can lift by one hand until you are released from the post-operative care. 12. Driving is discouraged until you are well healed. It may be 3-4 weeks before you feel strong enough to drive. You should be able to turn and look through the rear window without pain and you should be able to push the brake pedal very hard without pain before you drive. No fast rules, but SAFETY should be your primary concern. DO NOT drive if you are on sedating medications such as narcotics. 13. Call the clinic (during working hours) to make urgent appointment or go to the Emergency room, if any of the following occurs: i. Vaginal bleeding becomes heavy, more than a period. ii. Incision becomes red and sore, or drains pus. iii. Your temperature is over 100.4 or you have chill. iv. IV site becomes red and swollen (a little ``knot?? is usually OK) v. Persistent nausea and vomiting vi. Persistent constipation or diarrhea vii. Rash or allergic reaction to medications. Discharge Attestations PSYCH ASSISTANT Time Spent in Discharge Care*: greater than 30 min Coding Level of Care Code Acute Battery Mechanic for Chg Fwd Diagnoses Status post repeat low transverse section Z98.891
[2021-06-28 19:30] VITALS: BP 146/85; PULSE 63; TEMP 36.6; O2SAT 98
== END 2021-06-28 19:42 | disposition home or self-care (01) | DRG 784 ==
LOC: OPOB 06-27 09:24 → OBGYN 06-27 09:24
PROVIDERS: Admitting Provider Obstetrics & Gynecology; PCP Electrodiagnostic Medicine; Visit Provider Obstetrics & Gynecology
PROC: 10D00Z1 Extraction of Products of Conception, Low, Open Approach (ICD-10-PCS; CPT 59514; principal; 2021-06-26 08:30)
DX: O34.211 Maternal care for low transverse scar from previous cesarean delivery (principal); O10.02 Pre-existing essential hypertension complicating childbirth; O32.1XX0 Maternal care for breech presentation, not applicable or unspecified; O24.410 Gestational diabetes mellitus in pregnancy, diet controlled; O99.214 Obesity complicating childbirth; E66.01 Morbid (severe) obesity due to excess calories; O99.334 Smoking (tobacco) complicating childbirth; O69.2XX0 Labor and delivery complicated by other cord entanglement, with compression, not applicable or unspecified; O99.62 Diseases of the digestive system complicating childbirth; K21.9 Gastro-esophageal reflux disease without esophagitis; O99.52 Diseases of the respiratory system complicating childbirth; J45.909 Unspecified asthma, uncomplicated; Z37.0 Single live birth; Z3A.37 37 weeks gestation of pregnancy; Z30.2 Encounter for sterilization
CPT/HCPCS: 36415; 36416; 51702; 59409; 76815; 80053; 81003; 82570; 82962; 83986; 84156; 84550; 85025; 85027; 96372; 96374; 96376; 99211; C9290; J0690; J1885; J2274; J2370; J2405; J2765; J3105; J3490

== ENCOUNTER 2021-07-09 08:15 | Emergency (ER) | payer OTHER, MEDICAID, SELFPAY ==
[2021-07-09 08:32] VITALS: BP 188/105; PULSE 79; RESP 18; TEMP 36.3; O2SAT 98; BMI 35.8
[2021-07-09 08:38] VITALS: BP 188/105; PULSE 79; RESP 18; TEMP 36.3; O2SAT 98
--- NOTE | 2021-07-09 08:51 | ED_ITS ---
HPI - Wound/Laceration General: Chief Complaint: Wound/Laceration Stated Complaint: Previous CSection, possible infect Time Seen by Provider: 07/09/21 08:18 History of Present Illness: Patient a recent and her has been taking care of the wound. Wound is came apart on the right side without drainage and the concerned about possible infection. Wound also has skin irritation from adhesive use Associated symptoms: Denies chills, fever(s), nausea or vomiting Review of Systems Const: Denies: fever(s), chills or body aches Eyes: Denies: eye discomfort ENMT: Denies: throat pain Card: Denies: chest pain Resp: Denies: dyspnea GI: Denies: abdominal pain, nausea or vomiting Skin/Breast: Reports: surgical incision and other (Slight separation wound on the right side with skin irritation around the w); Denies: rash Neuro: Denies: headache(s) Psych: Denies: depression or suicidal ideation [facility] ED PFSH: Medical History (Updated 07/09/21 @ 08:51 by JUDITH Salazar) Asthma, moderate persistent Diagnosed as a child however she outgrew it at the age of 9 or 11. She states that since her delivery in 2014 her symptoms have gotten worse and she has been on medication by her primary care provider. 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 Benign essential hypertension Diagnosed in 2014 after the of her child. Had gestational hypertension which never resolved . She is on metoprolol managed by her primary care provider Prior to this and states that she was well controlled this GERD (gastroesophageal reflux disease) Symptoms are much better since cholecystectomy however she does take pantoprazole daily to help prevent symptoms. No pertinent past medical history Denies diabetes, seizures, DVT/PE PCP: Dr. Golden PCOS (polycystic ovarian syndrome) Diagnosed in 2009 when she had irregular cycles 2 or 3 times a year and increased facial hair. -Has been on Metformin on and off for the last 10 years. Has had 30-day cycles since 2017. Surgical History (Updated 06/28/21 @ 17:43 by Mikhail Mcintyre MD) H/O section (12/06/14) x 2 12/06/2014---stat section for bradycardia (documented LTCS with vertical skin incision). Performed by Dr. Tran at [facility].-Double layer closure with inferior extension noted 06/26/2021--- repeat low transverse delivery at 37 weeks and 1 day when patient presented with spontaneous rupture of membranes with breech presentation. Surgery performed by Dr. Mcintyre at [facility] Hx laparoscopic cholecystectomy (05/14/18) Performed by Dr. Bermudez at [facility] Hx of tonsillectomy At the age of 3-4 Family History Mother Diabetes Heart attack Hypertension Father Diabetes Stroke Hypertension Heart attack Grandmother Hypertension MATERNAL Family/Other Breast cancer Paternal Aunt--dx age 80's Denies family history of Colon cancer Ovarian cancer Hypercholesteremia Uterine cancer Thyroid disease Physical Exam Const: COMMON NORMALS: no acute distress, patient oriented x3 and alert HENMT: COMMON NORMALS: normocephalic and external ears normal HEAD & SCALP: normocephalic EXTERNAL EAR: Yes external ears normal Eye: COMMON NORMALS: EOMs intact bilaterally Neck/C-Spine: COMMON NORMALS: no JVD Resp: COMMON NORMALS: normal respiratory effort and No use of accessory muscles Cardio: COMMON NORMALS: no JVD GI: INSPECTION: Yes normal to inspection Extremity: COMMON NORMALS: normal to inspection and full ROM Neuro: COMMON NORMALS: patient oriented x3 SENSORIUM/ORIENTATION: Yes alert Psych: COMMON NORMALS: mental status grossly normal Skin: COMMON NORMALS: no rashes or lesions noted GENERAL SKIN EXAM: no rashes or lesions noted OTHER: No obvious signs of infection from the wound there is slight dehiscence since of the right side of the wound. Without drainage. There is an irritation with red macular chafing the skin around the whole body wound most likely from July and skin are possibly skin adhesive. No erythema noted. Course Vital Signs: Vital signs: Vital Signs Temperature 97.4 F L 07/09/21 08:38 Pulse Rate 79 07/09/21 08:38 Respiratory Rate 18 07/09/21 08:38 Blood Pressure 188/105 07/09/21 08:38 Pulse Oximetry 98 07/09/21 08:38 MDM - Wound/Laceration Medical Decision Making Wound dehiscence and mild hypertension. Patient is follow-up with surgeon scheduled on Sunday. Patient is also check blood pressure daily as she has been doing. Discharge Plan Discharge Patient Disposition: Home Clinical Impression: Abdominal wound dehiscence, Benign essential hypertension Condition: Stable Prescriptions: No Action prenat.vits,anette,[id number] Tablet 1 tab PO DAILY 0RF aspirin 81 mg tablet,delayed release (DR/EC) 81 mg PO DAILY Qty: 90 1RF Rx Instructions: Start at 12 weeks gestation Zyrtec 10 mg capsule 10 mg PO DAILY 0RF albuterol sulfate [ProAir HFA] 90 mcg/actuation HFA aerosol inhaler 1 - 2 inh inhalation Q4H PRN (Reason: shortness of breath or wheezing) Qty: 6.7 0RF fluticasone propion-salmeterol [Advair Diskus] 250-50 mcg/dose blister with device See Rx Instructions inhalation BID 0RF Rx Instructions: Strenght unknown inhalation twice a day; (DME) blood-glucose meter [Accu-Chek Guide Glucose Meter] Misc See Rx Instructions .Route Qty: 1 0RF Rx Instructions: As directed (DME) Accu-Chek Guide test strips Strip See Rx Instructions .Route Qty: 100 5RF Rx Instructions: As directed (DME) lancets [Accu-Chek Softclix Lancets] Misc See Rx Instructions .Route Qty: 200 3RF Rx Instructions: Fasting in AM, 2 hours after each meal metoprolol succinate 100 mg tablet extended release 24 hr 100 mg PO DAILY Qty: 14 0RF ibuprofen 800 mg tablet 800 mg PO TID PRN (Reason: pain) Qty: 60 0RF hydrocodone-acetaminophen 5-325 mg tablet 1 tab PO Q4H PRN (Reason: pain) Qty: 30 0RF acetaminophen 325 mg capsule 325 mg PO Q4H PRN (Reason: fever or pain) Qty: 60 0RF Discharge Orders: Discharge ED (Routine); Ordered 07/09/21 Ordered By: Lan Garcia Referrals: Sarabjit Golden DO [Primary Care Provider] - Discharge Diet: Advance as tolerated Discharge Activity: Resume usual activity Patient Instructions: Wound Dehiscence (ED) Activity Restrictions/Additional Instructions: Keep appointment with surgeon as scheduled. Continue to monitor blood pressures on a daily basis. Can clean wound with soap and water. Apply Vaseline or petroleum jelly to wound to help provide moisture barrier to keep irritation from occurring. Coding Level of Care Code ED Snuff Grinder And Screener for Mane Damon
[2021-07-09 09:05] VITALS: BP 181/121; PULSE 84; RESP 16; O2SAT 99
== END 2021-07-09 09:06 | disposition home or self-care (01) ==
PROVIDERS: Emergency Provider Nurse Practitioner Family; PCP Electrodiagnostic Medicine
DX: O90.0 Disruption of cesarean delivery wound (principal); I10 Essential (primary) hypertension
CPT/HCPCS: 99281

== ENCOUNTER 2021-07-30 09:10 | Emergency (ER) | payer MEDICAID, SELFPAY ==
[2021-07-30 09:20] VITALS: BP 173/90; PULSE 79; RESP 16; TEMP 36.8; O2SAT 100; BMI 34.3
--- NOTE | 2021-07-30 09:43 | W.ED.SKABFB ---
HPI - Skin/Abscess/Foreign Bdy General: Chief complaint: Skin/Abscess/Foreign Body Stated complaint: complications Time Seen by Provider: 07/30/21 09:18 Source: patient Mode of arrival: ambulatory Limitations: no limitations History of Present Illness: 31-year-old female presents emergency room with complaints of drainage from her incision. She has mild drainage at each end of the incision and the wound has opened up slightly she can visualize some of the suture material that was used to close the wound. She denies fever sweats or chills no purulent drainage she has been applying topical antibiotic to the area. Mild serosanguineous drainage complaint: other (Wound dehiscence) Onset (ago): day(s) Relieving factors: none Exacerbating factors: none Associated symptoms: Deny arthralgias, chills, cough, fever(s), itching, nausea, rigidity, short of breath or vomiting Treatments prior to arrival: other (Topical antibiotic) Review of Systems Const: Denies: fever(s) or chills ENMT: Denies: throat pain, ear or mastoid pain, nasal discharge or nasal congestion Card: Denies: chest pain, edema, dyspnea on exertion or orthopnea Resp: Denies: dyspnea, productive cough or non-productive cough GI: Denies: nausea or vomiting : Denies: flank pain, difficulty voiding, dysuria, urinary frequency or urinary urgency Skin/Breast: Denies: rash or pruritus [facility] ED PFSH: Medical History Aftercare following surgery of the genitourinary system Asthma, moderate persistent Diagnosed as a child however she outgrew it at the age of 9 or 11. She states that since her delivery in 2014 her symptoms have gotten worse and she has been on medication by her primary care provider. 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 Benign essential hypertension Diagnosed in 2015 after the of her child. Had gestational hypertension which never resolved . She is on metoprolol managed by her primary care provider Prior to this and states that she was well controlled this GERD (gastroesophageal reflux disease) Symptoms are much better since cholecystectomy however she does take pantoprazole daily to help prevent symptoms. No pertinent past medical history Denies diabetes, seizures, DVT/PE PCP: Dr. Golden PCOS (polycystic ovarian syndrome) Diagnosed in 2009 when she had irregular cycles 2 or 3 times a year and increased facial hair. -Has been on Metformin on and off for the last 10 years. Has had 30-day cycles since 2017. Surgical History H/O section (12/06/14) x 2 12/06/2014---stat section for bradycardia (documented LTCS with vertical skin incision). Performed by Dr. Tran at [facility] [place]Double layer closure with inferior extension noted 06/26/2021--- repeat low transverse delivery at 37 weeks and 1 day when patient presented with spontaneous rupture of membranes with breech presentation. Surgery performed by Dr. Mcintyre at [facility] [place] Hx laparoscopic cholecystectomy (05/14/18) Performed by Dr. Bermudez at [facility] [place] Hx of tonsillectomy At the age of 3-4 Family History Mother Diabetes Heart attack Hypertension Father Diabetes Stroke Hypertension Heart attack Grandmother Hypertension MATERNAL Family/Other Breast cancer Paternal Aunt--dx age 80's Denies family history of Colon cancer Ovarian cancer Hypercholesteremia Uterine cancer Thyroid disease Physical Exam Const: COMMON NORMALS: no acute distress GENERAL APPEARANCE: cooperative and comfortable ORIENTATION/CONSCIOUSNESS: Yes awake, Yes oriented to person, Yes oriented to place and Yes oriented to time HENMT: COMMON NORMALS: normocephalic and atraumatic HEAD & SCALP: normocephalic and atraumatic Neck/C-Spine: COMMON NORMALS: no JVD Resp: COMMON NORMALS: normal respiratory effort, No retractions, No use of accessory muscles and clear to auscultation bilaterally AUSCULTATION: clear to auscultation bilaterally Cardio: COMMON NORMALS: no JVD, regular rate, regular rhythm and No murmurs present (Cardio) RATE: regular rate RHYTHM: regular rhythm GI: COMMON NORMALS: Soft to palpation and No hepatosplenomegaly present AUSCULTATION: Yes normoactive bowel sounds PALPATION: Yes Soft to palpation, No Tenderness to palpation present (GI), No Guarding due to palpation present (GI) and Yes No hepatosplenomegaly present OTHER: At both lateral ends of the incision there is a small area of dehiscence a few millimeters at most I can visualize some plastic suture material subcutaneously no purulent drainage on palpation cannot get anything to drain out unable to express any purulent fluid. Overall wound looks good there is no sign of localized infection erythema Extremity: COMMON NORMALS: normal to inspection, capillary refill normal, no clubbing, cyanosis or edema, no calf tenderness and no pedal edema Neuro: SENSORIUM/ORIENTATION: Yes oriented to person, Yes oriented to place and Yes oriented to time Skin: COMMON NORMALS: no rashes or lesions noted GENERAL SKIN EXAM: no rashes or lesions noted Course Vital Signs: Vital signs: Vital Signs Temperature 98.3 F 07/30/21 09:20 Pulse Rate 73 07/30/21 10:03 Respiratory Rate 15 07/30/21 10:03 Blood Pressure 156/94 07/30/21 10:03 Pulse Oximetry 99 07/30/21 10:03 MDM - Skin/Abscess/Foreign Bdy Medicial Decision Making Discussed wound care. Use topical mupirocin twice daily follow-up with Dr. Mcintyre later this week return if develops fever purulent drainage Medical Records I reviewed the patient's medical records. Lab Data I reviewed the patient's lab results. Discharge Plan Discharge Patient Disposition: Home Clinical Impression: Surgical wound dehiscence, S/P Condition: Stable Prescriptions: New mupirocin 2 % ointment 1 applic topical BID Qty: 22 0RF No Action prenat.vits,anette,[id number] Tablet 1 tab PO DAILY 0RF aspirin 81 mg tablet,delayed release (DR/EC) 81 mg PO DAILY Qty: 90 1RF Rx Instructions: Start at 12 weeks gestation Zyrtec 10 mg capsule 10 mg PO DAILY 0RF albuterol sulfate [ProAir HFA] 90 mcg/actuation HFA aerosol inhaler 1 - 2 inh inhalation Q4H PRN (Reason: shortness of breath or wheezing) Qty: 6.7 0RF fluticasone propion-salmeterol [Advair Diskus] 250-50 mcg/dose blister with device See Rx Instructions inhalation BID 0RF Rx Instructions: Strenght unknown inhalation twice a day; (DME) blood-glucose meter [Accu-Chek Guide Glucose Meter] Misc See Rx Instructions .Route Qty: 1 0RF Rx Instructions: As directed (DME) Accu-Chek Guide test strips Strip See Rx Instructions .Route Qty: 100 5RF Rx Instructions: As directed (DME) lancets [Accu-Chek Softclix Lancets] Misc See Rx Instructions .Route Qty: 200 3RF Rx Instructions: Fasting in AM, 2 hours after each meal metoprolol succinate 100 mg tablet extended release 24 hr 100 mg PO DAILY Qty: 14 0RF ibuprofen 800 mg tablet 800 mg PO TID PRN (Reason: pain) Qty: 60 0RF hydrocodone-acetaminophen 5-325 mg tablet 1 tab PO Q4H PRN (Reason: pain) Qty: 30 0RF acetaminophen 325 mg capsule 325 mg PO Q4H PRN (Reason: fever or pain) Qty: 60 0RF Discharge Orders: Discharge ED (Routine); Ordered 07/30/21 Ordered By: Connor Pickett Referrals: Sarabjit Golden DO [Primary Care Provider] - Discharge Diet: Usual diet Discharge Activity: Increase activity as tolerated Patient Instructions: Opioid Safety Activity Restrictions/Additional Instructions: Follow-up with Dr. Mcintyre as previously scheduled. Use topical antibiotic biotic ointment on the portion of the wound that is opened. 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
[2021-07-30 10:03] VITALS: BP 156/94; PULSE 73; RESP 15; O2SAT 99
== END 2021-07-30 10:05 | disposition home or self-care (01) ==
PROVIDERS: Emergency Provider Family Medicine; PCP Electrodiagnostic Medicine
DX: O90.0 Disruption of cesarean delivery wound (principal)
CPT/HCPCS: 99281

== ENCOUNTER → 2021-08-09 09:24 | Outpatient (BNVA) | payer MEDICAID, SELFPAY | PROVIDERS: PCP Electrodiagnostic Medicine; Visit Provider Obstetrics & Gynecology | DX: O24.419 Gestational diabetes mellitus in pregnancy, unspecified control (principal) | CPT/HCPCS: 82947 ==

== ENCOUNTER 2021-12-12 18:20 | Emergency (ER) | payer MEDICAID, SELFPAY ==
[2021-12-12] MEDS: EPINEPHrine 1 mg/mL INJ 0.3 MG IM (18:31)
--- NOTE | 2021-12-12 18:31 | ED_ITS ---
HPI - Allergic Reaction General: Chief complaint: Allergic Reaction Stated complaint: allergic reaction, SOB Time Seen by Provider: 12/12/21 18:27 History of Present Illness: HPI narrative: Patient was stung about 10 minutes before 6:00 this evening. Patient reports taking some Benadryl about 10 to 15 minutes later but then noticed that her throat felt really scratchy and felt like it might be trying to close off. Patient swells really bad with red wasp stings and was concerned she might of been stung by red wasp. Patient has had to use epi before due to red wasp sting. No respiratory difficulty is noted. Patient does have some generalized erythema. Patient is alert and oriented. Review of Systems General: Reports: 10 or more systems reviewed and unremarkable except in HPI and below ENMT: Reports: other (Itchy throat, difficulty swallowing) Resp: Reports: dyspnea PFSH ED PFSH: Medical History (Updated 12/12/21 @ 20:04 by PRASANTH BarahonaP) Asthma, moderate persistent Diagnosed as a child however she outgrew it at the age of 9 or 11. She states that since her delivery in 2014 her symptoms have gotten worse and she has been on medication by her primary care provider. 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 Benign essential hypertension Diagnosed in 2015 after the of her child. Had gestational hypertension which never resolved . She is on metoprolol managed by her primary care provider Prior to this and states that she was well controlled this GERD (gastroesophageal reflux disease) Symptoms are much better since cholecystectomy however she does take pantoprazole daily to help prevent symptoms. No pertinent past medical history Denies diabetes, seizures, DVT/PE PCP: Dr. Golden PCOS (polycystic ovarian syndrome) Diagnosed in 2009 when she had irregular cycles 2 or 3 times a year and increased facial hair. -Has been on Metformin on and off for the last 10 years. Has had 30-day cycles since 2017. Surgical History (Updated 08/10/21 @ 07:36 by Jacobo Villarreal MD) H/O section (12/06/14) x 2 12/06/2014---stat section for bradycardia (documented LTCS with vertical skin incision). [place] [facility] [place] with inferior extension noted 06/26/2021--- repeat low transverse delivery at 37 weeks and 1 day when patient presented with spontaneous rupture of membranes with breech presentation. [place] [facility] [place] cholecystectomy (05/14/18) [place]udez [place] [facility] [place]x of tonsillectomy At the age of 3-4 Family History Mother Diabetes Heart attack Hypertension Father Diabetes Stroke Hypertension Heart attack Grandmother Hypertension MATERNAL Family/Other Breast cancer Paternal Aunt--dx age 80's Denies family history of Colon cancer Ovarian cancer Hypercholesteremia Uterine cancer Thyroid disease Physical Exam Const: COMMON NORMALS: alert HENMT: THROAT: posterior oropharynx abnormal erythema Neck/C-Spine: COMMON NORMALS: full ROM Resp: COMMON NORMALS: normal respiratory effort and clear to auscultation bilaterally AUSCULTATION: clear to auscultation bilaterally Cardio: COMMON NORMALS: regular rate and regular rhythm RATE: regular rate RHYTHM: regular rhythm Extremity: COMMON NORMALS: normal to inspection Neuro: SENSORIUM/ORIENTATION: Yes alert Skin: COMMON NORMALS: turgor normal NARRATIVE SKIN EXAM: Generalized erythema GENERAL SKIN EXAM: turgor normal Course ED course: 1999, patient rested well, reports resolution of symptoms. No return of symptoms. Reviewed recommendations with patient and need for follow- up or return to the ER. Vital Signs: Vital signs: Vital Signs Temperature 98.4 F 12/12/21 19:24 Pulse Rate 80 12/12/21 19:24 Respiratory Rate 18 12/12/21 19:24 Blood Pressure 163/114 12/12/21 19:24 Pulse Oximetry 98 12/12/21 19:24 Oxygen Delivery Ar thod 12/12/21 19:24 MDM - Allergic Reaction Medical Decision Making 31-year-old female comes in today for concerns of allergic reaction to wasp sting. Patient does have a history of reactions to red wasp stings in which she has had to have epinephrine. On exam patient appears anxious and reports diffi culty swallowing and shortness of breath. Posterior pharynx shows some erythema without any swelling or angioedema. Lungs are clear to auscultation. Vital signs are normal. Differential diagnosis includes anaphylaxis, allergic reaction, anxiety. Patient was given 0.3 mg of epinephrine for concerns of anaphylaxis. Patient had also taken 50 mg of Benadryl prior to arrival to the ER. Patient was given 10 mg of dexamethasone IM. Patient full resolution of symptoms. Recommended patient continue with some Claritin or Zyrtec 1 or 2 tablets twice a day for the next 5 days. Patient routinely takes Xyzal so I recommended just taking it twice a day. I did refill patient's epinephrine pen. Patient reported understanding of care plan need for follow-up or return to the ER. Discharge Plan Discharge Patient Disposition: Home Clinical Impression: Allergic reaction Qualifiers: Encounter type: initial encounter Qualified Code(s): T78.40XA - Allergy, unspecified, initial encounter Condition: Stable Prescriptions: New epinephrine 0.3 mg/0.3 mL auto-injector 0.3 mg IM Q10M PRN (Reason: hypersensitivity reaction) Qty: 2 0RF Rx Instructions: for 2 doses No Action prenat.vits,anette,[id number] Tablet 1 tab PO DAILY Zyrtec 10 mg capsule 10 mg PO DAILY albuterol sulfate [ProAir HFA] 90 mcg/actuation HFA aerosol inhaler 1 - 2 inh inhalation Q4H PRN (Reason: shortness of breath or wheezing) Qty: 6.7 0RF pantoprazole 20 mg tablet,delayed release (DR/EC) 20 mg PO DAILY fluticasone propion-salmeterol [Advair Diskus] 250-50 mcg/dose blister with device See Rx Instructions inhalation BID Rx Instructions: Strenght unknown inhalation twice a day; metoprolol succinate 50 mg tablet extended release 24 hr 50 mg PO DAILY Qty: 90 0RF Discharge Orders: Discharge ED (Routine); Ordered 12/12/21 Ordered By: Abner Mcclelland Referrals: Sarabjit Golden DO [Primary Care Provider] - Discharge Diet: Usual diet Discharge Activity: Increase activity as tolerated Patient Instructions: Allergic Reaction Activity Restrictions/Additional Instructions: Continue with Claritin or Zyrtec 10 mg tablets. Use 1 or 2 tablets twice a day for symptoms of allergic reaction. Drink plenty of water with medication. Follow-up with primary care for further instruction. Return to ER for new concerns. Coding Level of Care Code ED Pain Management Nurse Practitioner for [facility] Exam Detailed
[2021-12-12] MEDS: dexamethasone 10 mg/mL INJ IM (18:51)
[2021-12-12 19:24] VITALS: BP 163/114; PULSE 80; RESP 18; TEMP 36.9; O2SAT 98; BMI 36.2
[2021-12-12 20:23] VITALS: BP 163/96; PULSE 67; RESP 18; O2SAT 99
== END 2021-12-12 20:26 | disposition home or self-care (01) ==
PROVIDERS: Emergency Provider Nurse Practitioner Family; PCP Electrodiagnostic Medicine
DX: T78.40XA Allergy, unspecified, initial encounter (principal); I10 Essential (primary) hypertension
CPT/HCPCS: 96372; 99284; J0171; J1100

== ENCOUNTER → 2022-02-14 11:41 | Outpatient (BNVA) | payer MEDICAID, SELFPAY | PROVIDERS: PCP Electrodiagnostic Medicine; Visit Provider Nurse Practitioner Women's Health | DX: E28.2 Polycystic ovarian syndrome (principal); Z12.4 Encounter for screening for malignant neoplasm of cervix | CPT/HCPCS: 87624 ==

== ENCOUNTER → 2022-03-27 18:03 | Outpatient (BNVA) | payer MEDICAID, SELFPAY | PROVIDERS: PCP Electrodiagnostic Medicine; Visit Provider Registered Nurse Neonatal Intensive Care | DX: R50.9 Fever, unspecified (principal) | CPT/HCPCS: 87400 ==

== ENCOUNTER → 2022-10-11 11:20 | Outpatient (BNVA) | payer OTHER, MEDICAID, SELFPAY | PROVIDERS: PCP Electrodiagnostic Medicine; Visit Provider Obstetrics & Gynecology | DX: Z32.00 Encounter for pregnancy test, result unknown (principal) | CPT/HCPCS: 84702 ==

== ENCOUNTER → 2022-10-17 09:55 | Outpatient (BNVA) | payer OTHER, MEDICAID, SELFPAY | PROVIDERS: PCP Electrodiagnostic Medicine; Visit Provider Obstetrics & Gynecology | DX: Z36.87 Encounter for antenatal screening for uncertain dates (principal) | CPT/HCPCS: 76817; 81000 ==

== ENCOUNTER → 2022-11-01 13:00 | Outpatient (BNVA) | payer MEDICAID, SELFPAY | PROVIDERS: PCP Electrodiagnostic Medicine; Visit Provider Obstetrics & Gynecology | DX: Z34.80 Encounter for supervision of other normal pregnancy, unspecified trimester (principal) | CPT/HCPCS: 80307; 81000; 87086 ==

== ENCOUNTER 2022-11-21 20:09 | Emergency (ER) | payer MEDICAID, SELFPAY ==
[2022-11-21 20:18] VITALS: BP 184/127; PULSE 97; RESP 24; TEMP 36.8; O2SAT 99; BMI 40.7
--- NOTE | 2022-11-21 20:19 | W.ED.GENADLT ---
HPI - General Adult General: Chief complaint: Allergic Reaction Stated complaint: wasp sting, allergic rxn- 11 wks Time Seen by Provider: 11/21/22 20:19 History of Present Illness: 32-year-old female comes in today after being stung by a wasp to the right forearm about 15 minutes prior to arrival. Patient reports pain and swelling to the area. Patient appears nontoxic. Patient has generalized redness to her skin although she is very fair complected. Patient reports being 11 weeks . Patient denies any other concerns at this time. Patient does have a history of high blood pressure, and asthma. Associated symptoms: Deny chest pain or dyspnea Review of Systems General: Reports: 10 or more systems reviewed and unremarkable except in HPI and below Const: Denies: fever(s) Card: Denies: chest pain Resp: Denies: dyspnea GI: Denies: abdominal pain Skin/Breast: Reports: erythema PFSH ED PFSH: Medical History Asthma, moderate persistent Diagnosed as a child however she outgrew it at the age of 9 or 11. She states that since her delivery in 2014 her symptoms have gotten worse and she has been on medication by her primary care provider. 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 Benign essential hypertension Diagnosed in 2014 after the of her child. Had gestational hypertension which never resolved . She is on metoprolol managed by her primary care provider Prior to this and states that she was well controlled this GERD (gastroesophageal reflux disease) Symptoms are much better since cholecystectomy however she does take pantoprazole daily to help prevent symptoms. No pertinent past medical history Denies diabetes, seizures, DVT/PE PCP: Dr. Golden PCOS (polycystic ovarian syndrome) Diagnosed in 2009 when she had irregular cycles 2 or 3 times a year and increased facial hair. -Has been on Metformin on and off for the last 10 years. Has had 30-day cycles since 2017. Surgical History H/O section (12/06/14) x 2 12/06/2014---stat section for bradycardia (documented LTCS with vertical skin incision). [place] [facility] [place] with inferior extension noted 06/26/2021--- repeat low transverse delivery at 37 weeks and 1 day when patient presented with spontaneous rupture of membranes with breech presentation. [place] [facility] [place] cholecystectomy (05/14/18) [place]ude[place] [facility] [place]x of tonsillectomy At the age of 3-4 Family History Mother Diabetes Heart attack Hypertension Father Diabetes Stroke Hypertension Heart attack Grandmother Hypertension MATERNAL Family/Other Breast cancer Paternal Aunt--dx age 80's Denies family history of Colon cancer Ovarian cancer Hypercholesteremia Uterine cancer Thyroid disease Physical Exam Const: COMMON NORMALS: alert HENMT: COMMON NORMALS: normocephalic HEAD & SCALP: normocephalic MOUTH: Normal oral and palatal mucosa present Neck/C-Spine: COMMON NORMALS: full ROM Resp: COMMON NORMALS: normal respiratory effort Cardio: COMMON NORMALS: regular rate RATE: regular rate GI: COMMON NORMALS: non-tender Back/Pelvis: COMMON NORMALS: thoracic and lumbar spine normal to inspection Extremity: RIGHT UPPER EXTREMITY: Yes lower arm (Posterior notes an area of redness and swelling) Neuro: SENSORIUM/ORIENTATION: Yes alert Skin: NARRATIVE SKIN EXAM: Insect bite/sting right forearm, generalized flushing Course ED course: 2109, redness and swelling has improved to the insect bite no other signs of anaphylaxis is noted. Patient was released to home with recommendations for further treatment and follow-up. Vital Signs: Vital signs: Vital Signs Temperature 98.3 F 11/21/22 20:18 Pulse Rate 98 11/21/22 21:18 Respiratory Rate 18 11/21/22 21:18 Blood Pressure 143/74 11/21/22 21:18 Pulse Oximetry 98 11/21/22 21:18 Oxygen Delivery Me thod Room Air 11/21/22 20:31 MDM - General Adult Medical Decision Making 32-year-old female comes in today for concerns of allergic reaction to a wasp sting. On exam patient has some mild swelling and tenderness to the right forearm. Area of redness approximately 8 cm with some mild induration and tenderness centrally. Lungs have clear air movement throughout. Vital signs are normal except for some mild elevation in blood pressure. Differential diagnosis includes but not limited to wasp sting, allergic reaction, local reaction to insect bite, anaphylaxis. No signs of severe distress was noted. Patient was medicated with 50 mg Benadryl, 40 mg of famotidine, and 8 mg of dexamethasone. Patient was monitored and then released to home with recommendations for continuing Benadryl and/or acetaminophen for pain and discomfort. Discharge Plan Discharge Patient Disposition: Home Clinical Impression: Local reaction to insect sting Qualifiers: Encounter type: initial encounter Injury intent: accidental or unintentional Qualified Code(s): T63.481A - Toxic effect of venom of other arthropod, accidental (unintentional), initial encounter Condition: Stable Prescriptions: No Action Zyrtec 10 mg capsule 10 mg PO DAILY albuterol sulfate [ProAir HFA] 90 mcg/actuation HFA aerosol inhaler 1 - 2 inh inhalation Q4H PRN (Reason: shortness of breath or wheezing) Qty: 6.7 0RF pantoprazole 20 mg tablet,delayed release (DR/EC) 20 mg PO DAILY fluticasone propion-salmeterol [Advair Diskus] 250-50 mcg/dose blister with device See Rx Instructions inhalation BID Rx Instructions: Strenght unknown inhalation twice a day; sertraline 25 mg tablet 25 mg PO DAILY montelukast [Singulair] 10 mg tablet 10 mg PO DAILY Qty: 60 0RF metoprolol succinate 50 mg tablet extended release 24 hr 50 mg PO DAILY Qty: 90 0RF epinephrine 0.3 mg/0.3 mL auto-injector 0.3 mg IM Q10M PRN (Reason: hypersensitivity reaction) Qty: 2 0RF Rx Instructions: for 2 doses Discharge Orders: Discharge ED (Routine); Ordered 11/21/22 Ordered By: Abner Mcclelland Referrals: Sarabjit Golden DO [Primary Care Provider] - Discharge Diet: Usual diet Discharge Activity: Increase activity as tolerated Patient Instructions: Insect Bite or Sting (ED) Activity Restrictions/Additional Instructions: Home and rest. Continue with Benadryl 50 mg every 4-6 hours as needed for itching or rash. Use acetaminophen, Tylenol, as needed for discomfort. Follow-up with primary care. Return to ED for worsening symptoms or new concerns. Coding Level of Care Code ED Global Sourcing Manager for [employer] [facility]
[2022-11-21] MEDS: dexamethasone 4 mg/mL INJ 8 MG IVP (20:26)
[2022-11-21] MEDS: famotidine 20 mg/2 mL INJ 40 MG IVP (20:26)
[2022-11-21] MEDS: diphenhydrAMINE 50 mg/mL SDV 1mL IVP (20:26)
[2022-11-21 20:31] VITALS: BP 189/113; PULSE 90; RESP 25; O2SAT 99
[2022-11-21 21:18] VITALS: BP 143/74; PULSE 98; RESP 18; O2SAT 98
== END 2022-11-21 21:19 | disposition home or self-care (01) ==
PROVIDERS: Emergency Provider Nurse Practitioner Family; PCP Electrodiagnostic Medicine
DX: O26.891 Other specified pregnancy related conditions, first trimester (principal); T63.461A Toxic effect of venom of wasps, accidental (unintentional), initial encounter; Z3A.11 11 weeks gestation of pregnancy; I10 Essential (primary) hypertension
CPT/HCPCS: 96374; 96375; 99284; J1100; J1200; J3490

== ENCOUNTER → 2022-11-27 11:33 | Outpatient (BNVA) | payer MEDICAID, SELFPAY | PROVIDERS: PCP Electrodiagnostic Medicine; Visit Provider Obstetrics & Gynecology | DX: Z34.80 Encounter for supervision of other normal pregnancy, unspecified trimester (principal); Z12.4 Encounter for screening for malignant neoplasm of cervix | CPT/HCPCS: 82950; 84315; 85027; 86592; 86762; 86803; 86850; 86900; 87340; 87806; 88175 ==

== ENCOUNTER → 2022-12-12 10:16 | Outpatient (BNVA) | payer MEDICAID, SELFPAY | PROVIDERS: PCP Electrodiagnostic Medicine; Visit Provider Obstetrics & Gynecology | DX: Z34.80 Encounter for supervision of other normal pregnancy, unspecified trimester (principal) | CPT/HCPCS: 81000 ==

== ENCOUNTER → 2022-12-20 10:15 | Outpatient (BNVA) | payer MEDICAID, SELFPAY | PROVIDERS: PCP Electrodiagnostic Medicine; Visit Provider Obstetrics & Gynecology | DX: Z34.80 Encounter for supervision of other normal pregnancy, unspecified trimester (principal) | CPT/HCPCS: 81000 ==

== ENCOUNTER → 2023-01-04 13:40 | Outpatient (BNVA) | payer MEDICAID, SELFPAY | PROVIDERS: PCP Electrodiagnostic Medicine; Visit Provider Obstetrics & Gynecology | DX: Z34.80 Encounter for supervision of other normal pregnancy, unspecified trimester (principal) | CPT/HCPCS: 81000 ==

== ENCOUNTER → 2023-01-23 10:41 | Outpatient (BNVA) | payer MEDICAID, SELFPAY | PROVIDERS: PCP Electrodiagnostic Medicine; Visit Provider Obstetrics & Gynecology | DX: Z34.80 Encounter for supervision of other normal pregnancy, unspecified trimester (principal) | CPT/HCPCS: 81000 ==

== ENCOUNTER → 2023-01-25 14:08 | Outpatient (BNVA) | payer MEDICAID, SELFPAY | PROVIDERS: PCP Electrodiagnostic Medicine; Visit Provider Obstetrics & Gynecology | DX: Z34.92 Encounter for supervision of normal pregnancy, unspecified, second trimester (principal); Z3A.21 21 weeks gestation of pregnancy | CPT/HCPCS: 76805; 81000 ==

== ENCOUNTER → 2023-01-29 14:35 | Outpatient (BNVA) | payer MEDICAID, SELFPAY | PROVIDERS: PCP Electrodiagnostic Medicine; Visit Provider Obstetrics & Gynecology | DX: Z34.80 Encounter for supervision of other normal pregnancy, unspecified trimester (principal) | CPT/HCPCS: 81000 ==

== ENCOUNTER → 2023-02-22 10:18 | Outpatient (BNVA) | payer MEDICAID, SELFPAY | PROVIDERS: PCP Electrodiagnostic Medicine; Visit Provider Obstetrics & Gynecology | DX: Z34.80 Encounter for supervision of other normal pregnancy, unspecified trimester (principal) | CPT/HCPCS: 81000 ==

== ENCOUNTER → 2023-02-28 13:18 | Outpatient (BNVA) | payer MEDICAID, SELFPAY | PROVIDERS: PCP Electrodiagnostic Medicine; Visit Provider Obstetrics & Gynecology | DX: Z34.80 Encounter for supervision of other normal pregnancy, unspecified trimester (principal) | CPT/HCPCS: 81000 ==

== ENCOUNTER → 2023-03-20 14:11 | Outpatient (BNVA) | payer MEDICAID, SELFPAY | PROVIDERS: PCP Electrodiagnostic Medicine; Visit Provider Obstetrics & Gynecology | DX: Z34.80 Encounter for supervision of other normal pregnancy, unspecified trimester (principal) | CPT/HCPCS: 81000 ==

== ENCOUNTER → 2023-04-03 10:18 | Outpatient (BNVA) | payer MEDICAID, SELFPAY | PROVIDERS: PCP Electrodiagnostic Medicine; Visit Provider Obstetrics & Gynecology | DX: Z34.80 Encounter for supervision of other normal pregnancy, unspecified trimester (principal) | CPT/HCPCS: 81000 ==

== ENCOUNTER 2023-04-17 10:38 | Outpatient (CLI) | payer MEDICAID, SELFPAY ==
[2023-04-17 10:57] VITALS: BP 147/82; PULSE 82
[2023-04-17 11:02] VITALS: RESP 17
[2023-04-17 11:06] VITALS: BMI 37.9
[2023-04-17 11:13] VITALS: BP 132/63; PULSE 73
[2023-04-17 11:28] VITALS: BP 111/58; PULSE 70
[2023-04-17 11:44] VITALS: BP 111/58; PULSE 70
== END 2023-04-17 11:44 | disposition home or self-care (01) ==
LOC: OPOB 10:41 → OBGYN 10:42
PROVIDERS: PCP Electrodiagnostic Medicine; Visit Provider Obstetrics & Gynecology
DX: O24.419 Gestational diabetes mellitus in pregnancy, unspecified control (principal); Z3A.00 Weeks of gestation of pregnancy not specified
CPT/HCPCS: 59025; 81000; 99211

== ENCOUNTER 2023-04-20 12:24 | Outpatient (CLI) | payer MEDICAID, SELFPAY ==
[2023-04-20 12:24] VITALS: BMI 38.2
[2023-04-20 12:36] VITALS: BP 149/89; PULSE 104
[2023-04-20 12:38] VITALS: BP 143/72; PULSE 87
[2023-04-20 12:51] VITALS: BP 139/66; PULSE 84
[2023-04-20 12:56] VITALS: RESP 18
== END 2023-04-20 13:06 | disposition home or self-care (01) ==
LOC: OPOB 12:31 → OBGYN 12:31
PROVIDERS: PCP Electrodiagnostic Medicine; Visit Provider Obstetrics & Gynecology
DX: O24.419 Gestational diabetes mellitus in pregnancy, unspecified control (principal); Z3A.00 Weeks of gestation of pregnancy not specified
CPT/HCPCS: 59025; 99211

== ENCOUNTER 2023-04-24 17:45 | Outpatient (CLI) | payer MEDICAID, SELFPAY ==
[2023-04-24 17:45] VITALS: BMI 38.3
[2023-04-24 17:53] VITALS: BP 148/83; PULSE 84
[2023-04-24 18:13] VITALS: BP 134/70; PULSE 76
[2023-04-24 18:33] VITALS: BP 132/64; PULSE 74
[2023-04-24 18:42] VITALS: BP 132/64; PULSE 74
== END 2023-04-24 18:42 | disposition home or self-care (01) ==
LOC: OPOB 17:47 → OBGYN 17:48
PROVIDERS: PCP Electrodiagnostic Medicine; Visit Provider Obstetrics & Gynecology
DX: O16.9 Unspecified maternal hypertension, unspecified trimester (principal); O24.419 Gestational diabetes mellitus in pregnancy, unspecified control; Z3A.00 Weeks of gestation of pregnancy not specified
CPT/HCPCS: 59025; 99211

== ENCOUNTER 2023-04-27 12:10 | Outpatient (CLI) | payer MEDICAID, SELFPAY ==
[2023-04-27 12:15] VITALS: BMI 37.8
[2023-04-27 12:18] VITALS: BP 125/83; PULSE 88; RESP 18; TEMP 36.1
[2023-04-27 12:38] VITALS: BP 126/80; PULSE 85
[2023-04-27 12:58] VITALS: BP 114/68; PULSE 82
[2023-04-27 13:20] VITALS: BP 114/68; PULSE 82
== END 2023-04-27 13:20 | disposition home or self-care (01) ==
LOC: OPOB 12:13 → OBGYN 12:14
PROVIDERS: PCP Electrodiagnostic Medicine; Visit Provider Obstetrics & Gynecology
DX: O24.419 Gestational diabetes mellitus in pregnancy, unspecified control (principal); Z3A.00 Weeks of gestation of pregnancy not specified
CPT/HCPCS: 59025; 99211

== ENCOUNTER 2023-04-28 19:59 | Outpatient (CLI) | payer MEDICAID, SELFPAY ==
[2023-04-28] VITALS (12 sets, daily range): BP systolic 111–142; BP diastolic 56–85; PULSE 72–86; RESP 16; BMI 37.9
[2023-04-28 20:54] LABS: Protein Urine 1+ (Negative); Urine Appearance Hazy (CLEAR); Urine Color Yellow (Yellow); pH Urine 6.5 (5-7)
[2023-04-28 20:55] LABS: Bilirubin Urine Neg (Negative); Blood Urine Trace (Negative); Glucose Urine UA Norm (Normal); Ketones Urine Negative (Negative); Leukocyte Esterase Urine 1+ (Negative); Nitrate Urine Positive (Negative); Urobilinogen Urine Norm (Negative)
[2023-04-28 20:56] LABS: Mucus Urine 1+ /hpf; RBC Urine 15-25 /hpf (0-2); Squamous Epithelial Cell Urine 15-25 /hpf (0-5); WBC Urine 15-25 /hpf (0-5)
[2023-04-28 20:57] LABS: Bacteria Urine 1+ /hpf; Calcium Oxalate Crystals Urine 15-25 /hpf
[2023-04-28] MEDS: ceFAZolin 1,000 MG in sodium chloride 0.9% (plus) 50 ML 100 MG IV (21:48)
[2023-04-28] MEDS: lactated ringers 1,000 ML 125 ML IV (21:48)
--- NOTE | 2023-04-28 23:04 | PM.OBTRLD ---
OB L&D Triage Visit Information: Date of evaluation: 04/28/23 Reason for evaluation: other Comments/Additional reason(s) for visit: 33-year-old female G3, P2 at 33.6 weeks gestation, OWEN 06/10/2023 observed on labor and delivery triage with complaints of pelvic pressure and burning with urination. She admits to good movement, denies leakage of fluid or vaginal bleeding. history of gestational diabetes, previous section. UA?positive nitrates, WBCs 15-25, RBCs 15-25, +1 protein, pH 6.5 Patient was treated with IV fluid And Ancef 1 g IV piggyback followed by Rx of ampicillin 500 mg 3 times daily x 7 days. Evaluation: Baseline heart rate: 140 Variability: Moderate (11-25) monitor accelerations: Present 15x15 monitor decelerations: None Laboratory results: Laboratory Tests 04/28/23 20:04 Urine Color Yellow Urine Appearance Hazy A Urine pH 6.5 Ur Specific Gravit y 1.030 Urine Protein 1+ H Urine Glucose (UA) Norm Urine Ketones Negative Urine Blood Trace H Urine Nitrate Positive H Urine Bilirubin Neg Urine Urobilinogen Norm Ur Leukocyte Ilana ase 1+ H Urine RBC 15-25 H Urine WBC 15-25 H Ur Squamous Epith Cells 15-25 H Calcium Oxalate Cr ystal 15-25 H Amorphous Sediment Not Reportable Urine Bacteria 1+ H Urine Mucus 1+ Vital signs: Vital Signs - 24 hr 04/28/23 20:05 04/28/23 20:20 04/28/23 20:21 Pulse Rate 86 80 Respiratory Rate 16 Blood Pressure 142/85 141/80 Oxygen Delivery Me thod 04/28/23 20:21 04/28/23 20:35 04/28/23 20:50 Pulse Rate 78 72 Respiratory Rate 16 Blood Pressure 136/78 127/69 Oxygen Delivery Me thod Room Air 04/28/23 21:05 04/28/23 21:21 04/28/23 21:36 Pulse Rate 75 72 75 Respiratory Rate Blood Pressure 129/74 128/61 113/62 Oxygen Delivery Me thod 04/28/23 21:50 04/28/23 22:05 04/28/23 22:20 Pulse Rate 74 73 77 Respiratory Rate Blood Pressure 112/66 111/66 111/56 Oxygen Delivery Me thod 04/28/23 22:34 Pulse Rate 77 Respiratory Rate Blood Pressure 111/56 Oxygen Delivery Me thod Care OWEN Calculator Estimated Delivery Date Method Current WG Current Estimate 06/10/23 LMP (Certain) 33w 6d Final Diagnosis Final Diagnosis (1) with 33 completed weeks gestation: Status: Acute Code(s): Z3A.33 - 33 weeks gestation of (2) UTI (urinary tract infection) in in third trimester: Status: Acute Code(s): O23.43 - Unspecified infection of urinary tract in , third trimester (3) Chronic hypertension during : Status: Acute Code(s): O10.919 - Unspecified pre-existing hypertension complicating , unspecified trimester (4) Pregestational diabetes mellitus, modified White class B: Status: Acute Code(s): O24.319 - Unspecified pre-existing diabetes mellitus in , unspecified trimester (5) Abnormal glucose tolerance affecting , antepartum: Status: Acute Code(s): O99.810 - Abnormal glucose complicating Other Information/Follow up Discharge patient to home after IV antibiotics completed. Coding Level of Care Code Acute Code for Chg Fwd Diagnoses with 33 completed weeks gestation Z3A.33 UTI (urinary tract infection) in in third trimester O23.43 Chronic hypertension during O10.919 Pregestational diabetes mellitus, modified White class B O24.319 Abnormal glucose tolerance affecting , antepartum O99.810
== END 2023-04-28 22:48 | disposition home or self-care (01) ==
LOC: OPOB 19:59 → OBGYN 20:00
PROVIDERS: PCP Electrodiagnostic Medicine; Visit Provider Obstetrics & Gynecology
DX: O23.43 Unspecified infection of urinary tract in pregnancy, third trimester (principal); O10.919 Unspecified pre-existing hypertension complicating pregnancy, unspecified trimester; O24.319 Unspecified pre-existing diabetes mellitus in pregnancy, unspecified trimester; O99.810 Abnormal glucose complicating pregnancy; Z3A.33 33 weeks gestation of pregnancy
CPT/HCPCS: 59025; 81001; 99211; J0690; J7120

== ENCOUNTER → 2023-05-01 08:47 | Outpatient (BNVA) | payer MEDICAID, SELFPAY | PROVIDERS: PCP Electrodiagnostic Medicine; Visit Provider Obstetrics & Gynecology | DX: Z34.80 Encounter for supervision of other normal pregnancy, unspecified trimester (principal) | CPT/HCPCS: 76815; 76819 ==

== ENCOUNTER 2023-05-01 10:22 | Outpatient (CLI) | payer MEDICAID, SELFPAY ==
[2023-05-01 10:20] VITALS: BMI 38.6
[2023-05-01 10:32] VITALS: BP 135/80; PULSE 76
== END 2023-05-01 11:10 | disposition home or self-care (01) ==
LOC: OPOB 10:22 → OBGYN 10:23
PROVIDERS: PCP Electrodiagnostic Medicine; Visit Provider Obstetrics & Gynecology
DX: O24.419 Gestational diabetes mellitus in pregnancy, unspecified control (principal); Z3A.00 Weeks of gestation of pregnancy not specified
CPT/HCPCS: 59025; 81000; 99211

== ENCOUNTER 2023-05-04 13:11 | Outpatient (CLI) | payer MEDICAID, SELFPAY ==
[2023-05-04 13:36] VITALS: BP 144/87; PULSE 77
[2023-05-04 13:44] VITALS: BMI 37.9
[2023-05-04 13:52] VITALS: BP 142/87; PULSE 81
[2023-05-04 14:07] VITALS: BP 132/73; PULSE 78
--- NOTE | 2023-05-04 14:25 | PC.NURSE ---
Patient educated to return to L&D if contractions increase in frequency, duration or level of pain. Recommended to drink several glasses of water, take tylenol otc per package directions and lay down to rest.
== END 2023-05-04 14:25 | disposition home or self-care (01) ==
LOC: OPOB 13:15 → OBGYN 13:17
PROVIDERS: PCP Electrodiagnostic Medicine; Visit Provider Obstetrics & Gynecology
DX: O24.419 Gestational diabetes mellitus in pregnancy, unspecified control (principal); Z3A.00 Weeks of gestation of pregnancy not specified
CPT/HCPCS: 59025

== ENCOUNTER 2023-05-06 18:15 | Outpatient (CLI) | payer MEDICAID, SELFPAY ==
[2023-05-06] VITALS (14 sets, daily range): BP systolic 113–134; BP diastolic 58–80; PULSE 65–80; RESP 16; TEMP 35.5; BMI 38.2
[2023-05-06 18:54] LABS: Amorphous Sediment Urine 1+ /hpf; Bacteria Urine 1+ /hpf; Bilirubin Urine Neg (Negative); Blood Urine Neg (Negative); Coarse Granular Casts Urine 0-4 /lpf; Glucose Urine UA Norm (Normal); Ketones Urine 1+ (Negative); Leukocyte Esterase Urine 1+ (Negative); Mucus Urine TRACE /hpf; Nitrate Urine Negative (Negative); Protein Urine Neg (Negative); Squamous Epithelial Cell Urine 15-25 /hpf (0-5); Urine Appearance Hazy (CLEAR); Urine Color Yellow (Yellow); Urobilinogen Urine Norm (Negative); WBC Urine 15-25 /hpf (0-5); pH Urine 6.5 (5-7)
[2023-05-06 18:55] LABS: Hyaline Casts Urine 0-4 /lpf
[2023-05-06] MEDS: cefTRIAXone 1,000 MG in sodium chloride 0.9% (plus) 50 ML 100 MG IV (20:38)
[2023-05-06] MEDS: lactated ringers 1,000 ML 150 ML IV (20:38)
[2023-05-06] MEDS: fluconazole 100 mg Tablet 150 MG PO (20:55)
== END 2023-05-06 21:56 | disposition home or self-care (01) ==
LOC: OPOB 18:19 → OBGYN 18:20
PROVIDERS: Absent Provider Obstetrics & Gynecology; PCP Electrodiagnostic Medicine; Visit Provider Obstetrics & Gynecology
DX: O26.899 Other specified pregnancy related conditions, unspecified trimester (principal); Z3A.00 Weeks of gestation of pregnancy not specified; R10.9 Unspecified abdominal pain; R10.2 Pelvic and perineal pain
CPT/HCPCS: 36415; 59025; 81001; 99211; J0696; J7120

== ENCOUNTER 2023-05-08 16:27 | Outpatient (CLI) | payer MEDICAID, SELFPAY ==
[2023-05-08 16:25] VITALS: RESP 17; BMI 38.0
[2023-05-08 16:35] VITALS: BP 135/64; PULSE 74
[2023-05-08 16:50] VITALS: BP 104/67; PULSE 70
[2023-05-08 17:05] VITALS: BP 111/68; PULSE 73
[2023-05-08 17:20] VITALS: BP 108/66; PULSE 79
== END 2023-05-08 17:32 | disposition home or self-care (01) ==
LOC: OPOB 16:28 → OBGYN 16:28
PROVIDERS: PCP Electrodiagnostic Medicine; Visit Provider Obstetrics & Gynecology
DX: O24.419 Gestational diabetes mellitus in pregnancy, unspecified control (principal); Z3A.00 Weeks of gestation of pregnancy not specified
CPT/HCPCS: 59025

== ENCOUNTER 2023-05-11 14:23 | Outpatient (CLI) | payer MEDICAID, SELFPAY ==
[2023-05-11 14:23] VITALS: BMI 38.2
[2023-05-11 14:36] VITALS: BP 131/64; PULSE 80
[2023-05-11 14:56] VITALS: BP 127/72; PULSE 75
== END 2023-05-11 15:15 | disposition home or self-care (01) ==
LOC: OPOB 14:27 → OBGYN 14:28
PROVIDERS: PCP Electrodiagnostic Medicine; Visit Provider Obstetrics & Gynecology
DX: O24.419 Gestational diabetes mellitus in pregnancy, unspecified control (principal); Z3A.00 Weeks of gestation of pregnancy not specified
CPT/HCPCS: 59025

== ENCOUNTER → 2023-05-15 10:26 | Outpatient (BNVA) | payer MEDICAID, SELFPAY | PROVIDERS: PCP Electrodiagnostic Medicine; Visit Provider Obstetrics & Gynecology | DX: Z34.80 Encounter for supervision of other normal pregnancy, unspecified trimester (principal) | CPT/HCPCS: 76819 ==

== ENCOUNTER 2023-05-15 11:24 | Outpatient (CLI) | payer MEDICAID, SELFPAY ==
[2023-05-15 11:29] VITALS: BP 161/97; PULSE 88
[2023-05-15 11:50] VITALS: BP 134/78; PULSE 84
[2023-05-15 12:05] VITALS: BP 139/79; PULSE 76
[2023-05-15 12:20] VITALS: BP 131/73; PULSE 77
[2023-05-15 12:35] VITALS: BP 125/69; PULSE 76
== END 2023-05-15 12:50 ==
LOC: OPOB 11:25 → OBGYN 11:26
PROVIDERS: PCP Electrodiagnostic Medicine; Visit Provider Obstetrics & Gynecology
DX: O24.419 Gestational diabetes mellitus in pregnancy, unspecified control (principal); Z3A.00 Weeks of gestation of pregnancy not specified
CPT/HCPCS: 59025; 81000; 87081

== ENCOUNTER 2023-05-18 12:25 | Outpatient (CLI) | payer MEDICAID, SELFPAY ==
[2023-05-18 12:25] VITALS: BMI 37.6
[2023-05-18 12:40] VITALS: RESP 18; TEMP 36.4
== END 2023-05-18 13:05 | disposition home or self-care (01) ==
LOC: OPOB 12:30 → OBGYN 12:32
PROVIDERS: PCP Electrodiagnostic Medicine; Visit Provider Obstetrics & Gynecology
DX: O24.419 Gestational diabetes mellitus in pregnancy, unspecified control (principal); Z3A.00 Weeks of gestation of pregnancy not specified
CPT/HCPCS: 59025; 99211

== ENCOUNTER 2023-05-22 16:05 | Outpatient (CLI) | payer MEDICAID, SELFPAY ==
[2023-05-22] VITALS (7 sets, daily range): BP systolic 135–160; BP diastolic 77–88; PULSE 77–84; RESP 16–18; TEMP 36.6; BMI 38.3
== END 2023-05-22 19:15 | disposition home or self-care (01) ==
LOC: OPOB 16:09 → OBGYN 16:10
PROVIDERS: Absent Provider Obstetrics & Gynecology; Family Provider Obstetrics & Gynecology; PCP Electrodiagnostic Medicine; Visit Provider Obstetrics & Gynecology
DX: O24.419 Gestational diabetes mellitus in pregnancy, unspecified control (principal); Z3A.00 Weeks of gestation of pregnancy not specified
CPT/HCPCS: 59025; 99211

== ENCOUNTER → 2023-05-23 10:22 | Day surgery (SDC) | payer MEDICAID, SELFPAY ==
--- NOTE | 2023-05-24 10:49 | ANES.PREANE2 ---
Pre-Anesthetic Assessment Height/Weight: Height 1.8 m Operation Date: 06/04/23 07:20 Proposed Procedures p Repeat section 88862,O34.219(Not Applicable) - Finesse Mercer MD Familial anesthetic complications: none Was Beta Gavin taken within 24 hours: N/A Was Clonidine taken within 24 hours: N/A Social No alcohol and No tobacco Exam alert, oriented x 3, clear to auscultation bilaterally and regular rate & rhythm Airway Submandibular: within normal limits Cervical ROM: within normal limits Mallampati: Class II Dentition: full Pulmonary Asthma CV/HEM Hypertension GI Gastroesophageal Reflux Disease Metabolic Diabetes Mellitus and Morbid Obesity Neuropsych Anxiety and Dementia Anesthetic Plan ASA status: 3 Anesthesia: Regional (specify below) (SAB) Medications/Allergies Home Medications Medication Instructions Recorded Confirmed Last Taken Type fluticasone 250 mcg-salmeterol 50 See Rx Instructions inhalation BID 07/02/20 05/23/23 06/25/21 08:00 History mcg/dose blistr powdr for inhalation (Advair Diskus) albuterol sulfate 90 mcg/actuation 1 - 2 inh inhalation Q4H PRN 03/02/21 05/23/23 Unknown Rx aerosol inhaler (ProAir HFA) shortness of breath or wheezing #6.7 grams pantoprazole 20 mg tablet,delayed 20 mg PO DAILY 08/09/21 05/23/23 05/15/23 History release metoprolol succinate 50 mg 50 mg PO DAILY #90 tabs 08/15/21 05/23/23 05/15/23 Rx tablet,extended release 24 hr epinephrine 0.3 mg/0.3 mL 0.3 mg (0.3 mL) IM Q10M PRN 12/12/21 05/23/23 Unknown Rx injection, auto-injector hypersensitivity reaction #2 ea sertraline 25 mg tablet 25 mg PO DAILY 10/17/22 05/23/23 05/15/23 History blood sugar diagnostic (OneTouch #100 ea 01/04/23 05/23/23 Unknown Rx Ultra Test strips) Allergies Allergy/AdvReac Type Severity Reaction Status Date / Time No Known Allergies Allergy Verified 05/23/23 13:25 PFS Anesthesia Medical History No pertinent past medical history Denies diabetes, seizures, DVT/PE PCP: Dr. Golden Asthma, moderate persistent Diagnosed as a child however she outgrew it at the age of 9 or 11. She states that since her delivery in 2014 her symptoms have gotten worse and she has been on medication by her primary care provider. 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 GERD (gastroesophageal reflux disease) Symptoms are much better since cholecystectomy however she does take pantoprazole daily to help prevent symptoms. PCOS (polycystic ovarian syndrome) Diagnosed in 2009 when she had irregular cycles 2 or 3 times a year and increased facial hair. -Has been on Metformin on and off for the last 10 years. Has had 30-day cycles since 2017. Benign essential hypertension Diagnosed in 2014 after the of her child. Had gestational hypertension which never resolved . She is on metoprolol managed by her primary care provider Prior to this and states that she was well controlled this Surgical History Hx of tonsillectomy At the age of 3-4 H/O section (12/06/14) x 2 12/06/2014---stat section for bradycardia (documented LTCS with vertical skin incision). Performed by Dr. Tran at [facility] [place]Double layer closure with inferior extension noted 06/26/2021--- repeat low transverse delivery at 37 weeks and 1 day when patient presented with spontaneous rupture of membranes with breech presentation. Surgery performed by Dr. Mcintyre at [facility] [place] Hx laparoscopic cholecystectomy (05/14/18) Performed by Dr. Bermudez at [facility] [place] Family History Mother Diabetes Heart attack Hypertension Father Diabetes Stroke Hypertension Heart attack Grandmother Hypertension MATERNAL Family/Other Breast cancer Paternal Aunt--dx age 80's Denies family history of Colon cancer Ovarian cancer Hypercholesteremia Uterine cancer Thyroid disease Data Anesthesia Cardiac Studies: Echocardiogram 01/31/21
--- NOTE | 2023-06-04 06:28 | ANES.PREANE2 ---
Pre-Anesthetic Assessment Height/Weight: Height 1.8 m Operation Date: 06/04/23 07:20 Proposed Procedures p Repeat section 67201,O34.219(Not Applicable) - Finesse Mercer MD Exam alert, oriented x 3, clear to auscultation bilaterally and regular rate & rhythm Airway Submandibular: within normal limits Mallampati: Class I History/ROS Other (possible МАРИНА) CV/HEM None reported Anesthetic Plan ASA status: 2 Anesthesia: Eval. for regional block (spinal) Risk of > 500 ml blood loss (7ml/kg in children): Yes, adequate IV access and fluids planned Medications/Allergies Home Medications Medication Instructions Recorded Confirmed Last Taken Type fluticasone 250 mcg-salmeterol 50 See Rx Instructions inhalation BID 07/02/20 05/29/23 06/25/21 08:00 History mcg/dose blistr powdr for inhalation (Advair Diskus) albuterol sulfate 90 mcg/actuation 1 - 2 inh inhalation Q4H PRN 03/02/21 05/29/23 Unknown Rx aerosol inhaler (ProAir HFA) shortness of breath or wheezing #6.7 grams pantoprazole 20 mg tablet,delayed 20 mg PO DAILY 08/09/21 05/29/23 05/15/23 History release metoprolol succinate 50 mg 50 mg PO DAILY #90 tabs 08/15/21 05/29/23 05/15/23 Rx tablet,extended release 24 hr epinephrine 0.3 mg/0.3 mL 0.3 mg (0.3 mL) IM Q10M PRN 12/12/21 05/29/23 Unknown Rx injection, auto-injector hypersensitivity reaction #2 ea sertraline 25 mg tablet 25 mg PO DAILY 10/17/22 05/29/23 05/15/23 History blood sugar diagnostic (OneTouch #100 ea 01/04/23 05/29/23 Unknown Rx Ultra Test strips) Allergies Allergy/AdvReac Type Severity Reaction Status Date / Time No Known Allergies Allergy Verified 05/29/23 10:41 metoprolol [facility] Anesthesia Medical History No pertinent past medical history Denies diabetes, seizures, DVT/PE PCP: Dr. Golden Asthma, moderate persistent Diagnosed as a child however she outgrew it at the age of 9 or 11. She states that since her delivery in 2014 her symptoms have gotten worse and she has been on medication by her primary care provider. 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 GERD (gastroesophageal reflux disease) Symptoms are much better since cholecystectomy however she does take pantoprazole daily to help prevent symptoms. PCOS (polycystic ovarian syndrome) Diagnosed in 2009 when she had irregular cycles 2 or 3 times a year and increased facial hair. -Has been on Metformin on and off for the last 10 years. Has had 30-day cycles since 2017. Benign essential hypertension Diagnosed in 2014 after the of her child. Had gestational hypertension which never resolved . She is on metoprolol managed by her primary care provider Prior to this and states that she was well controlled this Surgical History Hx of tonsillectomy At the age of 3-4 H/O section (12/06/14) x 2 12/06/2014---stat section for bradycardia (documented LTCS with vertical skin incision). [place] [facility] [place] with inferior extension noted 06/26/2021--- repeat low transverse delivery at 37 weeks and 1 day when patient presented with spontaneous rupture of membranes with breech presentation. Surgery performed [place]. Mcintyre [place] [facility] [place] Hx laparoscopic cholecystectomy (05/14/18) [place] Bermudez [place] [facility] [place] Family History Mother Diabetes Heart attack Hypertension Father Diabetes Stroke Hypertension Heart attack Grandmother Hypertension MATERNAL Family/Other Breast cancer Paternal Aunt--dx age 80's Denies family history of Colon cancer Ovarian cancer Hypercholesteremia Uterine cancer Thyroid disease Data Anesthesia Cardiac Studies: Echocardiogram 01/31/21
--- NOTE | 2023-06-04 09:20 | ANE.PACU2 ---
Inpatient post-anesthesia follow up: Airway intact: Yes Vital signs: Temperature Pulse Rate Respiratory Rate Blood Pressure Pulse Oximetry Oxygen Delivery Me thod Oxygen Flow Rate Fraction of Inspir ed Oxygen Hydration adequate: Yes Nausea and vomiting: No Pain level: 1 Mental status: Baseline
== END ==
PROVIDERS: PCP Electrodiagnostic Medicine; Visit Provider Obstetrics & Gynecology
PROC: (CPT 59514; principal; 2023-06-04 07:00)
DX: Z01.818 Encounter for other preprocedural examination (principal)
CPT/HCPCS: 59409; 81000

== ENCOUNTER 2023-05-25 12:49 | Outpatient (CLI) | payer MEDICAID, SELFPAY ==
[2023-05-25 12:49] VITALS: BMI 38.7
[2023-05-25 13:17] VITALS: RESP 17
== END 2023-05-25 13:33 | disposition home or self-care (01) ==
LOC: OPOB 12:50 → OBGYN 12:50
PROVIDERS: Family Provider Obstetrics & Gynecology; PCP Electrodiagnostic Medicine; Visit Provider Obstetrics & Gynecology
DX: O24.419 Gestational diabetes mellitus in pregnancy, unspecified control (principal); Z3A.00 Weeks of gestation of pregnancy not specified
CPT/HCPCS: 59025

== ENCOUNTER 2023-05-29 11:18 | Outpatient (CLI) | payer MEDICAID, SELFPAY ==
[2023-05-29 11:24] VITALS: BP 139/87; PULSE 77
== END 2023-05-29 12:10 ==
LOC: OPOB 11:18 → OBGYN 11:19
PROVIDERS: Family Provider Obstetrics & Gynecology; PCP Electrodiagnostic Medicine; Visit Provider Obstetrics & Gynecology
DX: O24.419 Gestational diabetes mellitus in pregnancy, unspecified control (principal); Z3A.00 Weeks of gestation of pregnancy not specified
CPT/HCPCS: 59025; 81000; 87086; 87491; 87591

== ENCOUNTER 2023-06-01 13:07 | Outpatient (CLI) | payer MEDICAID, SELFPAY ==
[2023-06-01 13:07] VITALS: RESP 17; BMI 39.0
[2023-06-01 13:12] VITALS: BP 178/96; PULSE 78
[2023-06-01 13:27] VITALS: BP 125/66; PULSE 78
[2023-06-01 13:42] VITALS: BP 128/68; PULSE 77
== END 2023-06-01 13:50 | disposition home or self-care (01) ==
LOC: OPOB 13:08 → OBGYN 13:09
PROVIDERS: Family Provider Obstetrics & Gynecology; PCP Electrodiagnostic Medicine; Visit Provider Obstetrics & Gynecology
DX: O24.419 Gestational diabetes mellitus in pregnancy, unspecified control (principal); O16.9 Unspecified maternal hypertension, unspecified trimester; Z3A.00 Weeks of gestation of pregnancy not specified
CPT/HCPCS: 59025

== ENCOUNTER 2023-06-04 05:23 | Inpatient (IN) | payer MEDICAID, SELFPAY ==
[2023-06-04] VITALS (98 sets, daily range): BP systolic 116–171; BP diastolic 56–99; PULSE 44–170; RESP 16; TEMP 35.6–36.8; O2SAT 80–100; BMI 38.6
[2023-06-04 06:13] LABS: Basophils # 0.1 10^3/uL (0.0-0.1); Basophils % 0.4 %; Eosinophils # 0.2 10^3/uL (0.0-0.8); Eosinophils % 1.2 %; Hematocrit 42.5 % (36-47); Lymphocytes # 2.3 10^3/uL (0.8-4.8); Lymphocytes % 18.2 %; Mean Corpuscular Volume 84.3 fl (85-98); Mean Platelet Volume 10.5 fL (7.4-10.4); Monocytes # 0.8 10^3/uL (0.2-0.9); Neutrophils # 9.45 10^3/uL (1.8-7.7); Nucleated Red Blood Cells % 0 %; Platelet Count 285 10^3/cmm (157-399); Red Blood Count 5.04 10^6/uL (3.85-5.65); Red Cell Distribution Width 13.7 % (12.1-15.1); White Blood Count 12.77 10^3/uL (3.29-11.43)
--- NOTE | 2023-06-04 06:21 | PM.OBGYHP ---
Providers/Chief Complaint Admitting Physician: Finesse Mercer MD Primary WARD CLERK: Finesse Mercer MD Primary Care Provider: Sarabjit Golden DO Chief Complaint: csection HPI WARD CLERK History of Present Illness Chloe Dorman is a 33 year old female EDC June 10, 2023 complicated by gestational diabetes h/o c-sections x two now scheduled for repeat for delivery Medications/Allergies Home Medications Medication Instructions Recorded Confirmed Last Taken Type fluticasone 250 mcg-salmeterol 50 See Rx Instructions inhalation BID 07/02/20 05/29/23 06/25/21 08:00 History mcg/dose blistr powdr for inhalation (Advair Diskus) albuterol sulfate 90 mcg/actuation 1 - 2 inh inhalation Q4H PRN 03/02/21 05/29/23 Unknown Rx aerosol inhaler (ProAir HFA) shortness of breath or wheezing #6.7 grams pantoprazole 20 mg tablet,delayed 20 mg PO DAILY 08/09/21 05/29/23 05/15/23 History release metoprolol succinate 50 mg 50 mg PO DAILY #90 tabs 08/15/21 05/29/23 05/15/23 Rx tablet,extended release 24 hr epinephrine 0.3 mg/0.3 mL 0.3 mg (0.3 mL) IM Q10M PRN 12/12/21 05/29/23 Unknown Rx injection, auto-injector hypersensitivity reaction #2 ea sertraline 25 mg tablet 25 mg PO DAILY 10/17/22 05/29/23 05/15/23 History blood sugar diagnostic (OneTouch #100 ea 01/04/23 05/29/23 Unknown Rx Ultra Test strips) Allergies Allergy/AdvReac Type Severity Reaction Status Date / Time No Known Allergies Allergy Verified 05/29/23 10:41 PFS WARD CLERK [facility]: Medical History No pertinent past medical history Denies diabetes, seizures, DVT/PE PCP: Dr. Golden Asthma, moderate persistent Diagnosed as a child however she outgrew it at the age of 9 or 11. She states that since her delivery in 2014 her symptoms have gotten worse and she has been on medication by her primary care provider. She does not have a web developer programmer. GERD (gastroesophageal reflux disease) Symptoms are much better since cholecystectomy however she does take pantoprazole daily to help prevent symptoms. PCOS (polycystic ovarian syndrome) Diagnosed in 2009 when she had irregular cycles 2 or 3 times a year and increased facial hair. -Has been on Metformin on and off for the last 10 years. Has had 30-day cycles since 2016. Benign essential hypertension Diagnosed in 2014 after the of her child. Had gestational hypertension which never resolved . She is on metoprolol managed by her primary care provider Prior to this and states that she was well controlled this Surgical History Hx of tonsillectomy At the age of 3-4 H/O section (12/06/14) x 2 12/06/2014---stat section for bradycardia (documented LTCS with vertical skin incision). Performed by Dr. Tran at [facility] [place]Double layer closure with inferior extension noted 06/26/2021--- repeat low transverse delivery at 37 weeks and 1 day when patient presented with spontaneous rupture of membranes with breech presentation. Surgery performed by Dr. Mcintyre at [facility] [place] Hx laparoscopic cholecystectomy (05/14/18) Performed by Dr. Bermudez at [facility] [place] Family History Mother Diabetes Heart attack Hypertension Father Diabetes Stroke Hypertension Heart attack Grandmother Hypertension MATERNAL Family/Other Breast cancer Paternal Aunt--dx age 80's Denies family history of Colon cancer Ovarian cancer Hypercholesteremia Uterine cancer Thyroid disease Other Female Reproductive History: Hx Age of Menarche: 14 History History History 3 Term 2 0 Miscarriages/Ectopic 0 Living Children 2 Care OWEN Calculator Estimated Delivery Date Method Current WG Current Estimate 06/10/23 LMP (Certain) 39w 1d Vitals/I&O/Wt Last Vital Signs Pulse 74 06/04/23 06:18 Resp 17 06/01/23 13:07 BP 136/83 06/04/23 06:18 Physical Exam Const: COMMON NORMALS: no acute distress, patient oriented x3, healthy appearing, alert and well nourished Resp: COMMON NORMALS: normal respiratory effort, No retractions and clear to auscultation bilaterally Cardio: COMMON NORMALS: regular rate and regular rhythm GI: COMMON NORMALS: Normal to inspection, nondistended, normoactive bowel sounds present and Soft to palpation Data 06/04/23 05:30 Results Labs OB ([facility]): Obstetrics US 06/26/21 Obstetrics US/Biophysical Profile 05/15/23 Blood Type O Positive 11/27/22 Antibody Screen Negative 11/27/22 Hct 42.5 % (36-47) 06/04/23 Hgb 13.60 g/dL (11.27-16.99) 06/04/23 Rho(D) Type Positive 11/27/22 Plt Count 285 10^3/cmm (157-399) 06/04/23 Hep Bs Antigen Non-reactive (Nonreactive) 11/27/22 Hepatitis C Antibody Non-reactive (Nonreactive) 11/27/22 Rubella IgG Antibody 131.6 IU/mL (0.0-10.0) H 11/27/22 RPR Nonreactive (Nonreactive) 11/27/22 HIV 1&2 Ab & HIV 1 Ag Non-reactive (Non-Reactiv) 11/27/22 TSH 0.41 uIU/mL (0.27-4.20) 12/28/20 C.trachomatis RNA (TMA) Not detected (NOT DETECTED) 05/29/23 N.gonorrhoeae RNA (TMA) Not detected (NOT DETECTED) 05/29/23 Chlamydia/GC Comment See note 05/29/23 Cystic Fibrosis Screen Negative 11/23/22 Gest Glucose Tolerance 206 mg/dL 11/27/22 Hemoglobin A1c 5.2 % (4.0-6.0) 12/28/20 Uric Acid 4.5 mg/dL (2.4-5.7) 06/26/21 Ser , Semi-Qnt 3696.00 mIU/mL 10/11/22 HCG, Qual Positive (Negative) H 11/17/20 Urine Opiates Screen Negative ng/mL (Negative) 11/01/22 Ur Barbiturates Screen Negative ng/mL (Negative) 11/01/22 Ur Phencyclidine Scrn Negative ng/mL (Negative) 11/01/22 Ur Amphetamines Screen Negative ng/mL (Negative) 11/01/22 U Benzodiazepines Scrn Negative ng/mL (Negative) 11/01/22 Urine Cocaine Screen Negative ng/mL (Negative) 11/01/22 U Marijuana (THC) Screen Negative ng/mL (Negative) 11/01/22 Micro Urine Specimen 05/29/23 Pap Smear Interpret See note 11/27/22 A&P Assessment and plan (1) Supervision of other normal : 39 w 1 d admit for repeat (2) Abnormal glucose tolerance affecting , antepartum: (3) H/O section: Attestations Medical Necessity Statement*: patient at 39w 1d admitted for repeat Coding Level of Care Code Acute Code for Chg Fwd Diagnoses Supervision of other normal Z34.80 Abnormal glucose tolerance affecting , antepartum O99.810 H/O section Z98.891 Time Spent (min) 20
[2023-06-04] MEDS: lactated ringers 1,000 ML 999 ML IV (06:29)
[2023-06-04] MEDS: metoclopramide 5 mg/mL SDV 2 mL 10 MG IVP (06:29)
[2023-06-04] MEDS: citric acid-sodium citrate 30 mL UDC PO (06:29)
[2023-06-04] MEDS: famotidine 20 mg/2 mL INJ IVP (06:30)
[2023-06-04] MEDS: ceFAZolin 2,000 MG in sodium chloride 0.9% (plus) 50 ML 100 MG IV (06:30)
[2023-06-04 07:04] LABS: Glucose Point of Care 92 mg/dL (70-110)
--- NOTE | 2023-06-04 11:48 | P.OP_ITS ---
Operative Report Date of procedure: June 04, 2023 Pre-op diagnosis: 39 ? weeks gestation Previous x two For repeat Post-op diagnosis: same Post-op findings: Vigorous female infant Normal placenta and cord Normal uterus, tubes, and ovaries Procedure done: Repeat low-transverse Implants: none Specimens removed/disposition: placenta, discarded Surgeon: Finesse Mercer MD Anesthesia: Spinal Estimated blood loss (mL): 400 Complications: none Condition: stable Disposition: floor Brief History: 33 y.o. at 39 + weeks gestation h/o previous c-sections x two + gestational diabetes with present scheduled for repeat Procedure: Informed consent signed. Patient was taken to the operating room, placed supine in the left lateral tilt position. Spinal anesthesia and a Mackey catheter were already placed. The abdomen was prepped and draped in the usual sterile fashion. A Pfannenstiel incision was made over an old scar and carried down through skin and subcutaneous tissue and fascia. The fascial incision was extended laterally with Pitts scissors. The fascia was from the underlying rectus muscles. The rectus muscles were split in the midline. The peritoneum was entered bluntly avoiding underlying organs. A bladder flap was created. A low transverse uterine incision was made and extended laterally bluntly avoiding the uterine vessels. Clear amniotic fluid was seen. The baby was delivered in cephalic presentation atraumatically. The baby was suctioned. The cord was clamped and cut and the baby was handed to an awaiting printed circuit board layout designer. Cord blood was obtained. The placenta was manually removed intact. The uterus was not exteriorized. The uterine cavity was bluntly curetted with wet laps. The uterine incision was then closed with a continuous interlocking stitch of O chromic. Adequate hemostasis was seen. No bleeding was seen. The uterine incision was again inspected and found to have good hemostasis. The fascia was then closed with a continuous stitch of O-Vicryl. Additional interrupted stitches of O-Vicryl were used for fascial closure. The subcutaneous tissue was irrigated and inspected for hemostasis. The skin was then reapproximated using Insorb joanne. Postoperative condition stable Disposition to recovery room Estimated blood loss 400 cc, no replacement Sponge, needle, and instrument counts were correct x two There were no complications
[2023-06-04] MEDS: HYDROcodone-acetaminophen 5-325 mg Tablet PO (12:20)
[2023-06-04] MEDS: ketorolac 30 mg/mL INJ IVP ×2 (13:23→20:51)
[2023-06-04] MEDS: lactated ringers 1,000 ML 125 ML IV (13:23)
[2023-06-04] MEDS: docusate sodium 100 mg Capsule PO (18:25)
--- NOTE | 2023-06-04 19:26 | PC.NURSE ---
Inaccurate reading d/t pt moving.
[2023-06-04 23:11] LABS: Hematocrit 36.9 % (36-47); Mean Corpuscular HGB Conc 32.2 g/dL (30-55); Mean Corpuscular Hemoglobin 27.2 pg (27-33); Mean Corpuscular Volume 84.4 fl (85-98); Mean Platelet Volume 10.3 fL (7.4-10.4); Platelet Count 236 10^3/cmm (157-399); Red Blood Count 4.37 10^6/uL (3.85-5.65); Red Cell Distribution Width 13.6 % (12.1-15.1); White Blood Count 11.39 10^3/uL (3.29-11.43)
[2023-06-05 03:44] VITALS: BP 125/71; PULSE 63
[2023-06-05] MEDS: ketorolac 30 mg/mL INJ IVP (03:44)
[2023-06-05] MEDS: docusate sodium 100 mg Capsule PO (09:23)
[2023-06-05] MEDS: prenatal vitamin Capsule 1 CAP PO (09:24)
[2023-06-05] MEDS: metoprolol succinate ER (24 HR) 50 mg Tablet PO (09:32)
[2023-06-05 10:00] VITALS: BP 123/76; PULSE 65; RESP 16; TEMP 36.7; O2SAT 99
--- NOTE | 2023-06-05 11:10 | PM.OBGYPN ---
ENGINEERING SPECIALIST TECHNICIAN Subjective Subjective: Interval history: no c/o except for mild incisional pain relieved with pain medication eating, voiding, ambulating well no bleeding wants to go home without any difficulties Labor: Amniotic Membrane Status: Intact Monitor Mode: External Contraction Pattern: Rare Vitals/I&O/Wt Last Vital Signs Temp 98.6 F 06/05/23 13:52 Pulse 71 06/05/23 13:52 Resp 16 06/05/23 10:00 BP 139/81 06/05/23 13:52 Pulse Ox 99 06/05/23 10:00 O2 Del Method Room Air 06/04/23 18:45 06/05/23 06/05/23 06/05/23 06:59 14:59 22:59 Intake Total 1000 / 1000 Output Total 350 / 1250 Balance -350 / -200 1000 / 1000 Weight last 48 hrs Weight 277 lb Physical Exam Narrative: comfortable afebrile, VS normal Abd: soft, nontender wound clean and dry Ext: normal Urinary Catheter Management: Mackey: Cath Placed During This Visit: yes, but has since been removed by the nurse Reason for Continuing Indwelling Catheter: Decision to DC Catheter Urinary Catheter Date of Insertion: 06/04/23 Urinary Catheter Time of Insertion: 07:45 Date Urinary Catheter Removed: 06/05/23 Time Urinary Catheter Discontinued: 02:10 Data 06/04/23 23:05 A&P Assessment and plan (1) S/P : POD #1 repeat low-transverse doing well discharge home today instructions and precautions given call/return if fever, chills, nausea, vomiting, headaches, abdominal pain, bleeding, inability to void, swelling, leg pain; feelings of depression or mood changes; wound redness, swelling, or discharge f/u in 1 week or PRN Attestations Medical Necessity Statement*: patient s/p , plan to discharge today Coding Level of Care Code Acute Code for Chg Fwd Diagnoses S/P Z98.891 Time Spent (min) 20
--- NOTE | 2023-06-05 11:20 | PM.OBGYDC ---
Discharge Providers PRESIDENT AND CHIEF COMMERCIAL OFFICER Date of Admission: 06/04/23 05:23 Date of Discharge: 06/05/23 Attending Provider at Admission: Finesse Mercer MD Attending Provider at Discharge: Finesse Mercer MD Consults: none Primary PRESIDENT AND CHIEF COMMERCIAL OFFICER: Finesse Mercer MD Primary Care Provider: Sarabjit Golden DO Diagnoses at Discharge Discharge Diagnosis (1) S/P : Details from hospital stay: patient underwent repeat did well postop had normal postop course patient was discharged home on first postop day Status: Inactive Reason for Visit Reason for Visit: csection Brief History: patient at 39 weeks, h/o previous c-sections x two, admitted for repeat Hospital Course Hospital Course patient underwent repeat did well postop had normal postop course patient was discharged home on first postop day Information Peripartum Data: Delivery Method: complications: none Physical Exam Narrative: comfortable afebrile, VS normal Abd: soft, nontender wound clean and dry Ext: normal Urinary Catheter Management: Mackey: Cath Placed During This Visit: yes, but has since been removed by the nurse Reason for Continuing Indwelling Catheter: Decision to DC Catheter Urinary Catheter Date of Insertion: 06/04/23 Urinary Catheter Time of Insertion: 07:45 Date Urinary Catheter Removed: 06/05/23 Time Urinary Catheter Discontinued: 02:10 History History History 3 Term 2 0 Miscarriages/Ectopic 0 Living Children 2 Discharge Data Studies Completed and Pending Laboratory Results WBC 11.39 10^3/uL (3.29-11.43) 06/04/23 23:05 RBC 4.37 10^6/uL (3.85-5.65) 06/04/23 23:05 Hgb 11.90 g/dL (11.27-16.99) 06/04/23 23:05 Hct 36.9 % (36-47) 06/04/23 23:05 MCV 84.4 fl (85-98) L 06/04/23 23:05 MCH 27.2 pg (27-33) 06/04/23 23:05 MCHC 32.2 g/dL (30-55) 06/04/23 23:05 RDW 13.6 % (12.1-15.1) 06/04/23 23:05 Plt Count 236 10^3/cmm (157-399) 06/04/23 23:05 MPV 10.3 fL (7.4-10.4) 06/04/23 23:05 Neut % (Auto) 74.0 % 06/04/23 05:30 Lymph % (Auto) 18.2 % 06/04/23 05:30 [place] % (Auto) 6.0 % 06/04/23 05:30 Eos % (Auto) 1.2 % 06/04/23 05:30 Baso % (Auto) 0.4 % 06/04/23 05:30 Neut # (Auto) 9.45 10^3/uL (1.8-7.7) H 06/04/23 05:30 Lymph # (Auto) 2.3 10^3/uL (0.8-4.8) 06/04/23 05:30 [place] # (Auto) 0.8 10^3/uL (0.2-0.9) 06/04/23 05:30 Eos # (Auto) 0.2 10^3/uL (0.0-0.8) 06/04/23 05:30 Baso # (Auto) 0.1 10^3/uL (0.0-0.1) 06/04/23 05:30 Nucleated RBC % (auto) 0 % 06/04/23 05:30 Nucleated RBCs # 0.0 /100WBC 06/04/23 05:30 POC Glucose 92 mg/dL (70-110) 06/04/23 06:58 Blood Type O Positive 06/04/23 05:30 Rho(D) Type Rh positive 06/04/23 05:30 Antibody Screen Negative 06/04/23 05:30 Procedures Performed repeat low-transverse Vitals Last Vital Signs Temp 98.6 F 06/05/23 13:52 Pulse 71 06/05/23 13:52 Resp 16 06/05/23 10:00 BP 139/81 06/05/23 13:52 Pulse Ox 99 06/05/23 10:00 O2 Del Method Room Air 06/04/23 18:45 Results Labs OB ([facility]): Obstetrics US 06/26/21 Obstetrics US/Biophysical Profile 05/15/23 Blood Type O Positive 06/04/23 Antibody Screen Negative 06/04/23 Hct 36.9 % (36-47) 06/04/23 Hgb 11.90 g/dL (11.27-16.99) 06/04/23 Rho(D) Type Rh positive 06/04/23 Plt Count 236 10^3/cmm (157-399) 06/04/23 Hep Bs Antigen Non-reactive (Nonreactive) 11/27/22 Hepatitis C Antibody Non-reactive (Nonreactive) 11/27/22 Rubella IgG Antibody 131.6 IU/mL (0.0-10.0) H 11/27/22 RPR Nonreactive (Nonreactive) 11/27/22 HIV 1&2 Ab & HIV 1 Ag Non-reactive (Non-Reactiv) 11/27/22 TSH 0.41 uIU/mL (0.27-4.20) 12/28/20 C.trachomatis RNA (TMA) Not detected (NOT DETECTED) 05/29/23 N.gonorrhoeae RNA (TMA) Not detected (NOT DETECTED) 05/29/23 Chlamydia/GC Comment See note 05/29/23 Cystic Fibrosis Screen Negative 11/23/22 Gest Glucose Tolerance 206 mg/dL 11/27/22 Hemoglobin A1c 5.2 % (4.0-6.0) 12/28/20 Uric Acid 4.5 mg/dL (2.4-5.7) 06/26/21 Ser , Semi-Qnt 3696.00 mIU/mL 10/11/22 HCG, Qual Positive (Negative) H 11/17/20 Urine Opiates Screen Negative ng/mL (Negative) 11/01/22 Ur Barbiturates Screen Negative ng/mL (Negative) 11/01/22 Ur Phencyclidine Scrn Negative ng/mL (Negative) 11/01/22 Ur Amphetamines Screen Negative ng/mL (Negative) 11/01/22 U Benzodiazepines Scrn Negative ng/mL (Negative) 11/01/22 Urine Cocaine Screen Negative ng/mL (Negative) 11/01/22 U Marijuana (THC) Screen Negative ng/mL (Negative) 11/01/22 Micro Urine Specimen 05/29/23 Pap Smear Interpret See note 11/27/22 Discharge Plan Discharge Patient Disposition: Home Condition: Stable Prescriptions: New Percocet 10-325 mg tablet 1 tab PO BID PRN (Reason: pain) Qty: 30 0RF Continued albuterol sulfate [ProAir HFA] 90 mcg/actuation HFA aerosol inhaler 1 - 2 inh inhalation Q4H PRN (Reason: shortness of breath or wheezing) Qty: 6.7 0RF pantoprazole 20 mg tablet,delayed release (DR/EC) 20 mg PO DAILY fluticasone propion-salmeterol [Advair Diskus] 250-50 mcg/dose blister with device See Rx Instructions inhalation BID Rx Instructions: Strenght unknown inhalation twice a day; sertraline 25 mg tablet 25 mg PO DAILY metoprolol succinate 50 mg tablet extended release 24 hr 50 mg PO DAILY Qty: 90 0RF (DME) OneTouch Ultra Test Strip See Rx Instructions .Route Qty: 100 3RF Rx Instructions: Check blood sugar fasting and 1 hour after meals epinephrine 0.3 mg/0.3 mL auto-injector 0.3 mg IM Q10M PRN (Reason: hypersensitivity reaction) Qty: 2 0RF Rx Instructions: for 2 doses Discharge Orders: Discharge Order (Routine); Ordered 06/05/23 Ordered By: Finesse Mercer Referrals: Finesse Mercer MD [Family Provider] - (1 Week Follow Up: 06/11 @03:30pm 6 Week Follow Up: 07/15 @3:45pm) Discharge Diet: Usual diet Discharge Activity: Increase activity as tolerated Patient Instructions: Depression (DC), Preeclampsia and Eclampsia After Delivery (GEN), Hemorrhage (GEN), OB [facility], OB Discharge Report, OB Food/Drug Interaction Guide, OB Care at Home, Opioid Safety, OB Home Care, Abnormal Bleeding Discharge Attestations PRESIDENT AND CHIEF COMMERCIAL OFFICER Time Spent in Discharge Care*: less than 30 min Coding Level of Care Code Acute Code for Chg Fwd Diagnoses S/P Z98.891 Time Spent (min) 20
[2023-06-05 13:33] VITALS: BP 139/81; PULSE 71; TEMP 37
[2023-06-05] MEDS: HYDROcodone-acetaminophen 5-325 mg Tablet PO (13:38)
[2023-06-05 13:52] VITALS: BP 139/81; PULSE 71; TEMP 37
== END 2023-06-05 13:52 | disposition home or self-care (01) | DRG 787 ==
PROVIDERS: Admitting Provider Obstetrics & Gynecology; Family Provider Obstetrics & Gynecology; PCP Electrodiagnostic Medicine; Visit Provider Obstetrics & Gynecology
PROC: 10D00Z1 Extraction of Products of Conception, Low, Open Approach (ICD-10-PCS; CPT 59514; principal; 2023-06-04 07:00)
DX: O34.211 Maternal care for low transverse scar from previous cesarean delivery (principal); O10.02 Pre-existing essential hypertension complicating childbirth; N85.8 Other specified noninflammatory disorders of uterus; Z3A.39 39 weeks gestation of pregnancy; Z37.0 Single live birth; O99.52 Diseases of the respiratory system complicating childbirth; J45.40 Moderate persistent asthma, uncomplicated; O99.62 Diseases of the digestive system complicating childbirth; K21.9 Gastro-esophageal reflux disease without esophagitis; O24.429 Gestational diabetes mellitus in childbirth, unspecified control
CPT/HCPCS: 36416; 51702; 59025; 59409; 82962; 85025; 85027; 86850; 86900; 96374; 96376; J0690; J1885; J2274; J2371; J2405; J2765; J3010; J3490; J7120

== ENCOUNTER 2023-07-27 17:19 | Emergency (ER) | payer MEDICAID, SELFPAY ==
--- NOTE | 2023-07-27 17:21 | ECG_ITS ---
[facility] Test Date: 2023-07-27 Pat Name: Chloe Dorman Department: Room: Gender: Female Vegetable Inspector: : 1990 Requested By: Bo Chaney Order Number: [id number] Cassidy MD: Enrrique Blackburn M.D. Measurements Intervals [place] Rate: 72 P: 32 DC: 128 QRS: 42 QRSD: 110 T: 45 QT: 377 QTc: 413 Interpretive Statements SINUS RHYTHM Compared to ECG 03/03/2021 12:57:03 No significant changes Electronically Signed On 07-27-2023 22:52:01 CDT by Enrrique Blackburn M.D. [id number] f
[2023-07-27 17:24] VITALS: BP 196/130; PULSE 74; RESP 16; TEMP 36.6; O2SAT 99
--- NOTE | 2023-07-27 17:54 | ED_ITS ---
HPI - Chest Pain 2 General: Chief Complaint: Chest Pain Stated Complaint: chest pains Time Seen by Provider: 07/27/23 17:30 History of Present Illness: Patient presents to the ER with complaints of chest pain, indigestion and intermittent tachycardia for the last several days. Upon arrival patient's blood pressure was 196/130 but then checking it 10 minutes later it was 148/83. Patient states that she is very anxious and this may have something to do with it. Patient does not have any history of heart problems. Patient did have a baby approximately 6 weeks ago. Patient is on metoprolol for blood pressure and Protonix for acid reflux. Patient states that when she was and delivering the doctors consider taking her off for least lowering her blood pressure medicine secondary to blood pressure being low. Currently actively having any chest pain at this time. Review of Systems 2 General: Reports: 10 or more systems reviewed and unremarkable except in HPI and below PFSH ED 2 PFSH: Medical History Abnormal glucose tolerance affecting , antepartum Supervision of other normal No pertinent past medical history Denies diabetes, seizures, DVT/PE PCP: Dr. Golden Asthma, moderate persistent Diagnosed as a child however she outgrew it at the age of 9 or 11. She states that since her delivery in 2014 her symptoms have gotten worse and she has been on medication by her primary care provider. She does not have a confidential secretary. GERD (gastroesophageal reflux disease) Symptoms are much better since cholecystectomy however she does take pantoprazole daily to help prevent symptoms. PCOS (polycystic ovarian syndrome) Diagnosed in 2009 when she had irregular cycles 2 or 3 times a year and increased facial hair. -Has been on Metformin on and off for the last 10 years. Has had 30-day cycles since 2017. Benign essential hypertension Diagnosed in 2014 after the of her child. Had gestational hypertension which never resolved . She is on metoprolol managed by her primary care provider Prior to this and states that she was well controlled this Surgical History H/O section (12/06/14) x 2 12/06/2014---stat section for bradycardia (documented LTCS with vertical skin incision). Performed by Dr. Tran at [facility].-Double layer closure with inferior extension noted 06/26/2021--- repeat low transverse delivery at 37 weeks and 1 day when patient presented with spontaneous rupture of membranes with breech presentation. Surgery performed by Dr. Mcintyre at [facility] Hx of tonsillectomy At the age of 3-4 Hx laparoscopic cholecystectomy (05/14/18) Performed by Dr. Bermudez at [facility] Family History Mother Diabetes Heart attack Hypertension Father Diabetes Stroke Hypertension Heart attack Grandmother Hypertension MATERNAL Family/Other Breast cancer Paternal Aunt--dx age 80's Other S/P Denies family history of Colon cancer Ovarian cancer Hypercholesteremia Uterine cancer Thyroid disease Physical Exam 2 Const: COMMON NORMALS: no acute distress, average body habitus, patient oriented x3, no limitations, healthy appearing, alert and well nourished HENMT: COMMON NORMALS: normocephalic, atraumatic, hearing grossly normal bilaterally, external ears normal, Normal external nose present, moist oral mucous membranes and oropharynx normal HEAD & SCALP: normocephalic and atraumatic NOSE: Normal external nose present EXTERNAL EAR: Yes external ears normal Neck/C-Spine: COMMON NORMALS: no JVD Chest: COMMONS NORMALS: normal inspection of the chest and normal palpation of entire chest wall Resp: COMMON NORMALS: normal respiratory effort, No retractions, No use of accessory muscles and clear to auscultation bilaterally AUSCULTATION: clear to auscultation bilaterally Cardio: COMMON NORMALS: no JVD, regular rate, regular rhythm, S1 normal heart sound present, S2 normal heart sound present, No gallops present (Cardio), No clicks present (Cardio), No murmurs present (Cardio) and No rub (Cardio) R ATE: regular rate RHYTHM: regular rhythm HEART SOUNDS: S1 normal heart sound present and S2 normal heart sound present GI: COMMON NORMALS: Normal to inspection, nondistended, normoactive bowel sounds present, Soft to palpation, non-tender, No hepatosplenomegaly present and no masses PALPATION: Yes Soft to palpation and Yes No hepatosplenomegaly present Neuro: COMMON NORMALS: patient oriented x3 SENSORIUM/ORIENTATION: Yes alert Course 2 Vital Signs: Vital signs: Vital Signs Temperature 98 F 07/27/23 20:47 Pulse Rate 57 L 07/27/23 20:47 Respiratory Rate 18 07/27/23 20:47 Blood Pressure 126/74 07/27/23 20:47 Pulse Oximetry 95 07/27/23 20:47 Oxygen Delivery Me thod Room Air 07/27/23 20:36 MDM - Chest Pain Medical Decision Making Was worked up in normal chest pain fashion with serial EKGs, serial enzymes chest x-ray, all which was essentially benign. Initial Trope was less than 6 delta Trope was essentially 0 four 2-hour Trope of essentially 6. Patient be discharged home to follow-up with her PCP on an as-needed basis for further evaluation testing. Differential Diagnosis Unlikely acute massive pulmonary embolism, acute respiratory failure, acute myocardial infarction, cardiac arrest or sudden cardiac Medical Records I reviewed the patient's medical records. Lab Data I reviewed the patient's lab results. 07/27/23 18:08 07/27/23 18:08 Laboratory Results WBC 11.90 10^3/uL (3.29-11.43) H 07/27/23 18:08 RBC 4.88 10^6/uL (3.85-5.65) 07/27/23 18:08 Hgb 13.20 g/dL (11.27-16.99) 07/27/23 18:08 Hct 41.8 % (36-47) 07/27/23 18:08 MCV 85.7 fl (85-98) 07/27/23 18:08 MCH 27.0 pg (27-33) 07/27/23 18:08 MCHC 31.6 g/dL (30-55) 07/27/23 18:08 RDW 14.4 % (12.1-15.1) 07/27/23 18:08 Plt Count 298 10^3/cmm (157-399) 07/27/23 18:08 MPV 10.3 fL (7.4-10.4) 07/27/23 18:08 Neut % (Auto) 70.0 % 07/27/23 18:08 Lymph % (Auto) 20.3 % 07/27/23 18:08 [place] % (Auto) 6.8 % 07/27/23 18:08 Eos % (Auto) 2.1 % 07/27/23 18:08 Baso % (Auto) 0.5 % 07/27/23 18:08 Neut # (Auto) 8.34 10^3/uL (1.8-7.7) H 07/27/23 18:08 Lymph # (Auto) 2.4 10^3/uL (0.8-4.8) 07/27/23 18:08 [place] # (Auto) 0.8 10^3/uL (0.2-0.9) 07/27/23 18:08 Eos # (Auto) 0.3 10^3/uL (0.0-0.8) 07/27/23 18:08 Baso # (Auto) 0.1 10^3/uL (0.0-0.1) 07/27/23 18:08 Nucleated RBC % (auto) 0 % 07/27/23 18:08 Nucleated RBCs # 0.0 /100WBC 07/27/23 18:08 Sodium 142 mmol/L (136-145) 07/27/23 18:08 Potassium 3.9 mmol/L (3.5-5.1) 07/27/23 18:08 Chloride 104 mmol/L (98-107) 07/27/23 18:08 Carbon Dioxide 27 mmol/L (22-29) 07/27/23 18:08 Anion Gap 14.9 (5-19) 07/27/23 18:08 BUN 16 mg/dL (6-20) 07/27/23 18:08 Creatinine 0.8 mg/dL (0.5-0.9) 07/27/23 18:08 GFR Calculation 82.1 mL/min (90-130) L 07/27/23 18:08 Glucose 97 mg/dL (65-115) 07/27/23 18:08 Calculated Osmolality 295 mOsm/kg (285-295) 07/27/23 18:08 Calcium 9.6 mg/dL (8.5-10.5) 07/27/23 18:08 Total Bilirubin 0.2 mg/dL (0.15-1.2) 07/27/23 18:08 AST 24 U/L (0-32) 07/27/23 18:08 ALT 43 U/L (0-33) H 07/27/23 18:08 Alkaline Phosphatase 84 U/L (35-105) 07/27/23 18:08 Troponin T Baseline < 6 ng/L (0-10) 07/27/23 18:08 Troponin T 120 Minute 6.00 ng/L (0-10) 07/27/23 19:58 Delta Troponin T 0.71006 ABS# (0-10) 07/27/23 19:58 Total Protein 7.0 g/dL (6.6-8.7) 07/27/23 18:08 Albumin 3.9 g/dL (3.5-5.2) 07/27/23 18:08 Globulin 3.1 g/dL (1.3-4.6) 07/27/23 18:08 Urine Color Yellow (Yellow) 07/27/23 17:47 Urine Appearance Clear (CLEAR) 07/27/23 17:47 Urine pH 5 (5-7) 07/27/23 17:47 Ur Specific [place] 1.020 (1.005-1.030) 07/27/23 17:47 Urine Protein Neg (Negative) 07/27/23 17:47 Urine Glucose (UA) Norm (Normal) 07/27/23 17:47 Urine Ketones Negative (Negative) 07/27/23 17:47 Urine Blood Neg (Negative) 07/27/23 17:47 Urine Nitrate Negative (Negative) 07/27/23 17:47 Urine Bilirubin Neg (Negative) 07/27/23 17:47 Urine Urobilinogen Neg mg/dL (Negative) 07/27/23 17:47 Ur Leukocyte Esterase Negative (Negative) 07/27/23 17:47 All radiology interpretation(s) finalized by discharge Discharge Plan Discharge Patient Disposition: Home Clinical Impression: Chest pain, non-cardiac, Anxiety Condition: Stable Prescriptions: No Action albuterol sulfate [ProAir HFA] 90 mcg/actuation HFA aerosol inhaler 1 - 2 inh inhalation Q4H PRN (Reason: shortness of breath or wheezing) Qty: 6.7 0RF pantoprazole 20 mg tablet,delayed release (DR/EC) 20 mg PO DAILY fluticasone propion-salmeterol [Advair Diskus] 250-50 mcg/dose blister with device See Rx Instructions inhalation BID Rx Instructions: Strenght unknown inhalation twice a day; sertraline 25 mg tablet 25 mg PO DAILY norethindrone-e.estradiol-iron [Junel FE 1.5/30 (28)] 1.5 mg-30 mcg (21)/75 mg (7) tablet 1 tab PO DAILY Qty: 84 0RF metoprolol succinate 50 mg tablet extended release 24 hr 50 mg PO DAILY Qty: 90 0RF (DME) OneTouch Ultra Test Strip See Rx Instructions .Route Qty: 100 3RF Rx Instructions: Check blood sugar fasting and 1 hour after meals epinephrine 0.3 mg/0.3 mL auto-injector 0.3 mg IM Q10M PRN (Reason: hypersensitivity reaction) Qty: 2 0RF Rx Instructions: for 2 doses Percocet 10-325 mg tablet 1 tab PO BID PRN (Reason: pain) Qty: 30 0RF Discharge Orders: Discharge ED (Routine); Ordered 07/27/23 Ordered By: Bo Chaney Referrals: Sarabjit Golden DO [Primary Care Provider] - 1 week Patient Instructions: Noncardiac Chest Pain (ED), Anxiety (ED) Activity Restrictions/Additional Instructions: Valuation the ER did not show acute cardiac cause of your chest pain. It is felt to be noncardiac in nature. Anxiety can also contribute to this. Please follow-up if any proximal physician in the next 7 to 10 days for further evaluation and treatment as needed. 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
[2023-07-27 18:05] LABS: Add Urine Microscopic? NO; Charge for UA Resulting for Rev
[2023-07-27 18:08] LABS: Bilirubin Urine Neg (Negative); Blood Urine Neg (Negative); Glucose Urine UA Norm (Normal); Ketones Urine Negative (Negative); Leukocyte Esterase Urine Negative (Negative); Nitrate Urine Negative (Negative); Protein Urine Neg (Negative); Urine Appearance Clear (CLEAR); Urine Color Yellow (Yellow); Urobilinogen Urine Neg (Negative); pH Urine 5 (5-7)
[2023-07-27 18:43] LABS: Basophils # 0.1 10^3/uL (0.0-0.1); Basophils % 0.5 %; Eosinophils # 0.3 10^3/uL (0.0-0.8); Eosinophils % 2.1 %; Hematocrit 41.8 % (36-47); Lymphocytes # 2.4 10^3/uL (0.8-4.8); Lymphocytes % 20.3 %; Mean Corpuscular HGB Conc 31.6 g/dL (30-55); Mean Corpuscular Volume 85.7 fl (85-98); Mean Platelet Volume 10.3 fL (7.4-10.4); Monocytes # 0.8 10^3/uL (0.2-0.9); Monocytes % 6.8 %; Neutrophils # 8.34 10^3/uL (1.8-7.7); Nucleated Red Blood Cells % 0 %; Platelet Count 298 10^3/cmm (157-399); Red Blood Count 4.88 10^6/uL (3.85-5.65); Red Cell Distribution Width 14.4 % (12.1-15.1)
[2023-07-27 18:46] VITALS: BP 134/82; PULSE 65; RESP 19; O2SAT 95
[2023-07-27 19:05] LABS: Alanine Aminotransferase 43 U/L (0-33); Albumin Level 3.9 g/dL (3.5-5.2); Alkaline Phosphatase 84 U/L (35-105); Anion Gap 14.9 (5-19); Aspartate Amino Transferase 24 U/L (0-32); Blood Urea Nitrogen 16 mg/dL (6-20); Calcium 9.6 mg/dL (8.5-10.5); Carbon Dioxide 27 mmol/L (22-29); Chloride 104 mmol/L (98-107); Globulin 3.1 g/dL (1.3-4.6); Glomerular Filtration Rate 82.1 mL/min (90-130); Glucose 97 mg/dL (65-115); Osmolality Calculated 295 mOsm/kg (285-295); Potassium 3.9 mmol/L (3.5-5.1); Sodium 142 mmol/L (136-145); Total Bilirubin 0.2 mg/dL (0.15-1.2)
[2023-07-27 19:12] LABS: Troponin(5th) Baseline < 6 ng/L (0-10)
[2023-07-27 19:27] VITALS: BP 133/79; PULSE 59; RESP 19; O2SAT 98
--- NOTE | 2023-07-27 19:43 | ECG_ITS ---
[facility] Test Date: 2023-07-27 Pat Name: Chloe Dorman Department: Room: Gender: Female Composition Floor Layer: : 1990 Requested By: Bo Chaney Order Number: [id number] Cassidy MD: Enrrique Blackburn M.D. Measurements Intervals [place] Rate: 62 P: 26 IA: 133 QRS: 44 QRSD: 110 T: 43 QT: 430 QTc: 439 Interpretive Statements SINUS RHYTHM Compared to ECG 07/27/2023 17:21:15 No significant changes Electronically Signed On 07-27-2023 22:52:44 CDT by Enrrique Blackburn M.D. [email or web address].[id number]
[2023-07-27 20:20] VITALS: BP 142/80; PULSE 61; RESP 14; O2SAT 96
[2023-07-27 20:36] VITALS: BP 126/74; PULSE 57; RESP 18; O2SAT 95
[2023-07-27 20:37] LABS: Troponin 5 2HR Delta 0.00001 ABS# (0-10)
[2023-07-27 20:47] VITALS: BP 126/74; PULSE 57; RESP 18; TEMP 36.6; O2SAT 95
== END 2023-07-27 20:46 | disposition home or self-care (01) ==
PROVIDERS: Emergency Provider Emergency Medicine; PCP Electrodiagnostic Medicine
DX: R07.89 Other chest pain (principal); F41.9 Anxiety disorder, unspecified; I10 Essential (primary) hypertension
CPT/HCPCS: 36415; 80053; 81003; 84484; 85025; 93005; 99284

== ENCOUNTER 2023-10-17 17:29 | Emergency (ER) | payer MEDICAID, SELFPAY ==
--- NOTE | 2023-10-17 17:30 | XRR_ITS ---
PROCEDURE INFORMATION: Exam: XR Chest Exam date and time: 10/17/2023 5:44 PM Age: 33 years old Clinical indication: Pain; Chest pressure; Additional info: Cp TECHNIQUE: Imaging protocol: Radiologic exam of the chest. Views: 1 view. COMPARISON: CR XR chest 1V [id number] 03/08/2019 7:16 PM FINDINGS: Lungs: Unremarkable. No consolidation. Pleural spaces: Unremarkable. No pleural effusion. No pneumothorax. Heart/Mediastinum: Unremarkable. No cardiomegaly. Bones/joints: Unremarkable. XR/XR chest 1V portable [id number] IMPRESSION: No acute findings.
--- NOTE | 2023-10-17 17:31 | ECG_ITS ---
[facility] Test Date: 2023-10-17 Pat Name: Chloe Dorman Department: Room: Gender: Female Net Sorter: : 1990 Requested By: Young Fregoso Order Number: [id number] Cassidy MD: Garret Cagle M.D. Measurements Intervals [place] Rate: 76 P: 7 TN: 96 QRS: 30 QRSD: 104 T: 10 QT: 384 QTc: 434 Interpretive Statements SINUS RHYTHM WITH SHORT TN INTERVAL MODERATE ST DEPRESSION [0.05+ mV ST DEPRESSION] Compared to ECG 07/27/2023 19:27:55 Short TN interval now present ST (T wave) deviation now present Electronically Signed On 10-19-2023 13:34:24 CDT by Garret Cagle M.D. [id number]
[2023-10-17 17:36] VITALS: BP 155/90; PULSE 77; RESP 18; TEMP 36.6; O2SAT 100
[2023-10-17 18:03] LABS: Basophils # 0.1 10^3/uL (0.0-0.1); Basophils % 0.6 %; Eosinophils # 0.2 10^3/uL (0.0-0.8); Eosinophils % 1.4 %; Hematocrit 44.7 % (36-47); Lymphocytes # 2.8 10^3/uL (0.8-4.8); Lymphocytes % 23.1 %; Mean Corpuscular HGB Conc 31.3 g/dL (30-55); Mean Corpuscular Hemoglobin 26.9 pg (27-33); Mean Platelet Volume 10.1 fL (7.4-10.4); Monocytes # 0.9 10^3/uL (0.2-0.9); Monocytes % 7.2 %; Neutrophils # 8.06 10^3/uL (1.8-7.7); Neutrophils % 67.5 %; Nucleated Red Blood Cells % 0 %; Platelet Count 277 10^3/cmm (157-399); Red Cell Distribution Width 12.8 % (12.1-15.1); White Blood Count 11.94 10^3/uL (3.29-11.43)
[2023-10-17 18:18] LABS: Troponin(5th) Baseline < 6 ng/L (0-10)
[2023-10-17 18:20] LABS: Alanine Aminotransferase 21 U/L (0-33); Albumin Level 4.1 g/dL (3.5-5.2); Alkaline Phosphatase 73 U/L (35-105); Anion Gap 13.8 (5-19); Aspartate Amino Transferase 15 U/L (0-32); Blood Urea Nitrogen 11 mg/dL (6-20); Calcium 9.2 mg/dL (8.5-10.5); Carbon Dioxide 26 mmol/L (22-29); Chloride 105 mmol/L (98-107); Glomerular Filtration Rate 95.8 mL/min (90-130); Glucose 104 mg/dL (65-115); Lipase 35 U/L (13-60); Osmolality Calculated 292 mOsm/kg (285-295); Potassium 3.8 mmol/L (3.5-5.1); Sodium 141 mmol/L (136-145); Total Bilirubin 0.2 mg/dL (0.15-1.2); Total Protein 7.1 g/dL (6.6-8.7)
[2023-10-17 19:40] VITALS: BP 147/95; PULSE 64; RESP 18; O2SAT 96
--- NOTE | 2023-10-17 19:45 | W.ED.CHESTPA ---
HPI - Chest Pain General: Chief Complaint: Chest Pain Stated Complaint: Pressure on chest Time Seen by Provider: 10/17/23 19:23 Source: patient Mode of arrival: ambulatory Limitations: no limitations History of Present Illness: Patient is a 33-year-old female presents to ED today with a complaint of left-sided chest pressure and feeling like her heart is racing. She states he has had symptoms on and off for 3 to 4 days. Patient states she has had the symptoms multiple times before. She states she has been told it is secondary to anxiety. Patient states she feels like her heart is racing during my examination. She is showing sinus rhythm in the 60s. She has no history of cardiac arrhythmias. No personal cardiac history. She does states she has a family history of cardiac disease. She is not complaining of shortness of breath or difficulty breathing. MD complaint: chest pain Onset (ago): day(s) Timing of current episode: episodic Prior episodes: Yes Pain location: left chest Pain radiation: left arm Severity: moderate Quality: other (achy) Relieving factors: nothing Exacerbating factors: other (feels like exertion makes her heart feel like it is racing) Associated symptoms: Reports no associated symptoms; Deny abdominal pain, dyspnea, fever(s), nausea, palpitations, syncope or vomiting Treatment prior to arrival: none Risk Factors: Coronary artery disease risk factors: hypertension and family history of CAD before age 50 Thoracic aortic dissection risk factors: none Related Data: On Oral Contraceptives: Yes Review of Systems Const: Denies: fever(s), chills, body aches, fatigue or malaise Card: Reports: chest pain; Denies: palpitations, irregular heart rhythm, edema, swelling of feet/ankles, lightheadedness, syncope, pre-syncope, dyspnea on exertion, orthopnea, leg pain with exertion or acrocyanosis Resp: Denies: dyspnea, productive cough, non-productive cough, pain on inspiration or chest congestion GI: Denies: abdominal pain, nausea or vomiting : Denies: flank pain or dysuria Musc: Denies: back pain or extremity swelling Neuro: Denies: dizziness [facility] PFSH: Medical History Abnormal glucose tolerance affecting , antepartum Supervision of other normal No pertinent past medical history Denies diabetes, seizures, DVT/PE PCP: Dr. Golden Asthma, moderate persistent Diagnosed as a child however she outgrew it at the age of 9 or 11. She states that since her delivery in 2014 her symptoms have gotten worse and she has been on medication by her primary care provider. She does not have a lockstitch sleeve maker. GERD (gastroesophageal reflux disease) Symptoms are much better since cholecystectomy however she does take pantoprazole daily to help prevent symptoms. PCOS (polycystic ovarian syndrome) Diagnosed in 2009 when she had irregular cycles 2 or 3 times a year and increased facial hair. -Has been on Metformin on and off for the last 10 years. Has had 30-day cycles since 2017. Benign essential hypertension Diagnosed in 2014 after the of her child. Had gestational hypertension which never resolved . She is on metoprolol managed by her primary care provider Prior to this and states that she was well controlled this Surgical History H/O section (12/06/14) x 2 12/06/2014---stat section for bradycardia (documented LTCS with vertical skin incision). Performed by Dr. Tran at [facility].-Double layer closure with inferior extension noted 06/26/2021--- repeat low transverse delivery at 37 weeks and 1 day when patient presented with spontaneous rupture of membranes with breech presentation. Surgery performed by Dr. Mcintyre at [facility] Hx of tonsillectomy At the age of 3-4 Hx laparoscopic cholecystectomy (05/14/18) Performed by Dr. Bermudez at [facility] Family History Mother Diabetes Heart attack Hypertension Father Diabetes Stroke Hypertension Heart attack Grandmother Hypertension MATERNAL Family/Other Breast cancer Paternal Aunt--dx age 80's Other S/P Denies family history of Colon cancer Ovarian cancer Hypercholesteremia Uterine cancer Thyroid disease Female Reproductive History: Date of last menstrual period: 10/08/23 Physical Exam Const: COMMON NORMALS: no acute distress, patient oriented x3, no limitations, alert and well nourished GENERAL APPEARANCE: cooperative NUTRITIONAL APPEARANCE: obese ORIENTATION/CONSCIOUSNESS: Yes awake, Yes oriented to person, Yes oriented to place and Yes oriented to time HENMT: COMMON NORMALS: normocephalic and atraumatic HEAD & SCALP: normal to inspection, normocephalic and atraumatic Neck/C-Spine: COMMON NORMALS: full ROM GENERAL: Yes normal visual inspection CERVICAL SPINE: No pain with cervical ROM and No Cervical spine tenderness Chest: COMMONS NORMALS: normal inspection of the chest OTHER: somewhat reproducible chest pain with palpation of L anterior chest Resp: COMMON NORMALS: normal respiratory effort and clear to auscultation bilaterally AUSCULTATION: clear to auscultation bilaterally Cardio: COMMON NORMALS: regular rate and regular rhythm RATE: regular rate RHYTHM: regular rhythm GI: COMMON NORMALS: Normal to inspection, nondistended, normoactive bowel sounds present, Soft to palpation and non-tender PALPATION: Yes Soft to palpation Extremity: COMMON NORMALS: no clubbing, cyanosis or edema, no calf tenderness and no pedal edema GENERAL: Yes normal exam except as noted Neuro: COMMON NORMALS: patient oriented x3 SENSORIUM/ORIENTATION: Yes alert, Yes oriented to person, Yes oriented to place and Yes oriented to time Course Vital Signs: Vital signs: Vital Signs Temperature 97.9 F 10/17/23 17:36 Pulse Rate 64 10/17/23 19:40 Respiratory Rate 18 10/17/23 19:40 Blood Pressure 147/95 10/17/23 19:40 Pulse Oximetry 96 10/17/23 19:40 Oxygen Delivery Me thod Room Air 10/17/23 17:36 MDM - Chest Pain Medical Decision Making Low suspicion for acute coronary syndrome based on her history and physical examination. She has had similar symptoms several times previously. Her EKG today showing no acute changes when compared to previous. She has normal baseline and 2-hour troponins. CXR is unremarkable. Remainder of her blood work is nonactionable. Chest pain is somewhat reproducible with palpation. Recommend she follow-up with her primary care provider. Medical Records I reviewed the patient's medical records. Lab Data I reviewed the patient's lab results. 10/17/23 17:49 10/17/23 17:49 Radiology Impressions Chest X-Ray 10/17/23 17:30 IMPRESSION: No acute findings. Laboratory Results WBC 11.94 10^3/uL (3.29-11.43) H 10/17/23 17:49 RBC 5.20 10^6/uL (3.85-5.65) 10/17/23 17:49 Hgb 14.00 g/dL (11.27-16.99) 10/17/23 17:49 Hct 44.7 % (36-47) 10/17/23 17:49 MCV 86.0 fl (85-98) 10/17/23 17:49 MCH 26.9 pg (27-33) L 10/17/23 17:49 MCHC 31.3 g/dL (30-55) 10/17/23 17:49 RDW 12.8 % (12.1-15.1) 10/17/23 17:49 Plt Count 277 10^3/cmm (157-399) 10/17/23 17:49 MPV 10.1 fL (7.4-10.4) 10/17/23 17:49 Neut % (Auto) 67.5 % 10/17/23 17:49 Lymph % (Auto) 23.1 % 10/17/23 17:49 Villalba % (Auto) 7.2 % 10/17/23 17:49 Eos % (Auto) 1.4 % 10/17/23 17:49 Baso % (Auto) 0.6 % 10/17/23 17:49 Neut # (Auto) 8.06 10^3/uL (1.8-7.7) H 10/17/23 17:49 Lymph # (Auto) 2.8 10^3/uL (0.8-4.8) 10/17/23 17:49 Villalba # (Auto) 0.9 10^3/uL (0.2-0.9) 10/17/23 17:49 Eos # (Auto) 0.2 10^3/uL (0.0-0.8) 10/17/23 17:49 Baso # (Auto) 0.1 10^3/uL (0.0-0.1) 10/17/23 17:49 Nucleated RBC % (auto) 0 % 10/17/23 17:49 Nucleated RBCs # 0.0 /100WBC 10/17/23 17:49 Sodium 141 mmol/L (136-145) 10/17/23 17:49 Potassium 3.8 mmol/L (3.5-5.1) 10/17/23 17:49 Chloride 105 mmol/L (98-107) 10/17/23 17:49 Carbon Dioxide 26 mmol/L (22-29) 10/17/23 17:49 Anion Gap 13.8 (5-19) 10/17/23 17:49 BUN 11 mg/dL (6-20) 10/17/23 17:49 Creatinine 0.7 mg/dL (0.5-0.9) 10/17/23 17:49 GFR Calculation 95.8 mL/min (90-130) 10/17/23 17:49 Glucose 104 mg/dL (65-115) 10/17/23 17:49 Calculated Osmolality 292 mOsm/kg (285-295) 10/17/23 17:49 Calcium 9.2 mg/dL (8.5-10.5) 10/17/23 17:49 Total Bilirubin 0.2 mg/dL (0.15-1.2) 10/17/23 17:49 AST 15 U/L (0-32) 10/17/23 17:49 ALT 21 U/L (0-33) 10/17/23 17:49 Alkaline Phosphatase 73 U/L (35-105) 10/17/23 17:49 Troponin T Baseline < 6 ng/L (0-10) 10/17/23 17:49 Troponin T 120 Minute 6.00 ng/L (0-10) 10/17/23 19:30 Delta Troponin T 0.81767 ABS# (0-10) 10/17/23 19:30 Total Protein 7.1 g/dL (6.6-8.7) 10/17/23 17:49 Albumin 4.1 g/dL (3.5-5.2) 10/17/23 17:49 Globulin 3.0 g/dL (1.3-4.6) 10/17/23 17:49 Lipase 35 U/L (13-60) 10/17/23 17:49 All radiology interpretation(s) finalized by discharge Discharge Plan Discharge Patient Disposition: Home Clinical Impression: Non-cardiac chest pain Condition: Stable Prescriptions: No Action albuterol sulfate [ProAir HFA] 90 mcg/actuation HFA aerosol inhaler 1 - 2 inh inhalation Q4H PRN (Reason: shortness of breath or wheezing) Qty: 6.7 0RF pantoprazole 20 mg tablet,delayed release (DR/EC) 20 mg PO DAILY fluticasone propion-salmeterol [Advair Diskus] 250-50 mcg/dose blister with device See Rx Instructions inhalation BID Rx Instructions: Strenght unknown inhalation twice a day; sertraline 25 mg tablet 25 mg PO DAILY metoprolol succinate 50 mg tablet extended release 24 hr 50 mg PO DAILY Qty: 90 0RF (DME) OneTouch Ultra Test Strip See Rx Instructions .Route Qty: 100 3RF Rx Instructions: Check blood sugar fasting and 1 hour after meals norethindrone-e.estradiol-iron [Blisovi Fe 1.5/30 (28)] 1.5 mg-30 mcg (21)/75 mg (7) tablet See Rx Instructions .ROUTE .COMPLEX Qty: 84 0RF Dose Instruction: TAKE 1 TABLET BY MOUTH EVERY DAY Rx Instructions: TAKE 1 TABLET BY MOUTH EVERY DAY epinephrine 0.3 mg/0.3 mL auto-injector 0.3 mg IM Q10M PRN (Reason: hypersensitivity reaction) Qty: 2 0RF Rx Instructions: for 2 doses Percocet 10-325 mg tablet 1 tab PO BID PRN (Reason: pain) Qty: 30 0RF Discharge Orders: Discharge ED (Routine); Ordered 10/17/23 Ordered By: Manasa Allen Referrals: Sarabjit Golden DO [Primary Care Provider] - Coding Level of Care Code ED [employer]
[2023-10-17 19:55] LABS: Troponin 5 2HR Delta 0.00001 ABS# (0-10)
== END 2023-10-17 20:17 | disposition home or self-care (01) ==
PROVIDERS: Emergency Medicine; Emergency Provider Physician Assistant; PCP Electrodiagnostic Medicine
DX: R07.89 Other chest pain (principal); I10 Essential (primary) hypertension
CPT/HCPCS: 36415; 71045; 80053; 83690; 84484; 85025; 93005; 99285

== ENCOUNTER 2023-12-04 19:47 | Emergency (ER) | payer MEDICAID, SELFPAY ==
[2023-12-04 19:51] VITALS: BP 171/108; PULSE 82; RESP 18; TEMP 36.8; O2SAT 100
[2023-12-04 20:09] LABS: Basophils # 0.1 10^3/uL (0.0-0.1); Basophils % 0.6 %; Eosinophils # 0.1 10^3/uL (0.0-0.8); Eosinophils % 1.8 %; Hematocrit 43.6 % (36-47); Lymphocytes # 2.1 10^3/uL (0.8-4.8); Lymphocytes % 26.4 %; Mean Corpuscular HGB Conc 31.9 g/dL (30-55); Mean Corpuscular Hemoglobin 27.4 pg (27-33); Monocytes # 0.8 10^3/uL (0.2-0.9); Monocytes % 10.4 %; Neutrophils # 4.85 10^3/uL (1.8-7.7); Neutrophils % 60.7 %; Nucleated Red Blood Cells % 0 %; Platelet Count 265 10^3/cmm (157-399); Red Blood Count 5.07 10^6/uL (3.85-5.65); Red Cell Distribution Width 13.4 % (12.1-15.1); White Blood Count 7.99 10^3/uL (3.29-11.43)
[2023-12-04 20:28] LABS: Alanine Aminotransferase 19 U/L (0-33); Albumin Level 3.9 g/dL (3.5-5.2); Alkaline Phosphatase 73 U/L (35-105); Anion Gap 14.9 (5-19); Aspartate Amino Transferase 15 U/L (0-32); Blood Urea Nitrogen 9 mg/dL (6-20); Carbon Dioxide 24 mmol/L (22-29); Chloride 104 mmol/L (98-107); Creatinine Clr Calc Pharmacy 145.6316; Globulin 3.3 g/dL (1.3-4.6); Glomerular Filtration Rate 82.1 mL/min (90-130); Glucose 105 mg/dL (65-115); Osmolality Calculated 287 mOsm/kg (285-295); Potassium 3.9 mmol/L (3.5-5.1); Sodium 139 mmol/L (136-145); Total Bilirubin 0.2 mg/dL (0.15-1.2); Total Protein 7.2 g/dL (6.6-8.7)
--- NOTE | 2023-12-04 23:00 | CTR_ITS ---
PROCEDURE INFORMATION: Exam: CT Right Lower Extremity With Contrast; Lower Leg Exam date and time: 12/04/2023 11:42 PM Age: 33 years old Clinical indication: Edema; Yes, it is localized; Additional info: Anterior/lateral prox/mid calf swelling, no trauma. Superficial, do not think clot. TECHNIQUE: Imaging protocol: CT of the right lower extremity with intravenous contrast was performed. Exam focused on the lower leg. Radiation optimization: All CT scans at this facility use at least one of these dose optimization techniques: automated exposure control; mA and/or kV adjustment per patient size (includes targeted exams where dose is matched to clinical indication); or iterative reconstruction. Contrast material: OMNI 350; Contrast volume: 100 ml; Contrast route: INTRAVENOUS (IV); COMPARISON: No relevant prior studies available. RADIATION DOSE METRICS: Total DLP (mGy-cm): 546.31 FINDINGS: Bones/joints: No fracture is noted involving the distal femur, tibia, fibula or tarsal bones. No blastic or lytic bony lesions are appreciated. No periostitis or bone destruction is noted. Soft tissues: No definite CT abnormalities are noted with regards to the muscles or tendons. No loculated fluid collections are identified. No inflammatory changes are noted. The popliteal artery and trifurcation vessels are patent. CT/CT lower leg RT w con [id number] IMPRESSION: Unremarkable CT.
[2023-12-04 23:24] VITALS: RESP 15
[2023-12-04] MEDS: fentaNYL 50 mcg/mL INJ 2mL 25 MCG IVP (23:24)
--- NOTE | 2023-12-04 23:47 | ED_ITS ---
HPI - Extremity Problem 2 General: Chief complaint: Extremity Problem,Nontraumatic Stated complaint: Tingling in feet and hands Time Seen by Provider: 12/04/23 21:59 Source: patient Mode of arrival: ambulatory Limitations: no limitations History of Present Illness: Patient presents emergency department today for evaluation treatment of various issues. She complains of recurrence of hand and feet tingling/numbness which has been going on for quite some time. She also states that she has a bump on the lateral inferior portion of her right lower extremity causing swelling of the extremity, pain, and swelling on her foot. She has no known trauma. She is concerned of blood clot though she herself has never had a blood clot in the past. Patient states that she has been getting numbness in her hands and feet ever since having her last child (06/23)-stating that her epidural hit the nerve 4 times and since that time she gets tingling in her hands and feet. States that on Sunday she began having some swelling and tenderness noted to the lateral side of her right lower leg and developed a knot underneath the skin. She indicates this area is tender-especially to touch and is more painful on the right lower extremity when she is standing and bearing weight. Review of Systems 2 General: Reports: 10 or more systems reviewed and unremarkable except in HPI and below PFSH ED 2 PFSH: Medical History Abnormal glucose tolerance affecting , antepartum Supervision of other normal No pertinent past medical history Denies diabetes, seizures, DVT/PE PCP: Dr. Golden Asthma, moderate persistent Diagnosed as a child however she outgrew it at the age of 9 or 11. She states that since her delivery in 2014 her symptoms have gotten worse and she has been on medication by her primary care provider. She does not have a associate director of development. GERD (gastroesophageal reflux disease) Symptoms are much better since cholecystectomy however she does take pantoprazole daily to help prevent symptoms. PCOS (polycystic ovarian syndrome) Diagnosed in 2009 when she had irregular cycles 2 or 3 times a year and increased facial hair. -Has been on Metformin on and off for the last 10 years. Has had 30-day cycles since 2017. Benign essential hypertension Diagnosed in 2014 after the of her child. Had gestational hypertension which never resolved . She is on metoprolol managed by her primary care provider Prior to this and states that she was well controlled this Surgical History H/O section (12/06/14) x 2 12/06/2014---stat section for bradycardia (documented LTCS with vertical skin incision). [place] [facility] [place] with inferior extension noted 06/26/2021--- repeat low transverse delivery at 37 weeks and 1 day when patient presented with spontaneous rupture of membranes with breech presentation. [place] [facility] [place] Hx of tonsillectomy At the age of 3-4 Hx laparoscopic cholecystectomy (05/14/18) [place] [facility] [place] History Mother Diabetes Heart attack Hypertension Father Diabetes Stroke Hypertension Heart attack Grandmother Hypertension MATERNAL Family/Other Breast cancer Paternal Aunt--dx age 80's Other S/P Denies family history of Colon cancer Ovarian cancer Hypercholesteremia Uterine cancer Thyroid disease Female Reproductive History: Date of last menstrual period: 10/03/23 Physical Exam 2 Const: COMMON NORMALS: patient oriented x3 and alert OTHER: Patient is in tears upon my arrival to the room. She answers her own history. HENMT: COMMON NORMALS: normocephalic, atraumatic and hearing grossly normal bilaterally HEAD & SCALP: normocephalic and atraumatic Eye: COMMON NORMALS: Equal, round and reactive pupils present, EOMs intact bilaterally and conjunctivae normal CONJUNCTIVA: Yes conjunctivae normal P UPIL: Yes Equal, round and reactive pupils present Neck/C-Spine: COMMON NORMALS: full ROM and no JVD Lymph: LYMPHATIC: no lymphadenopathy noted Resp: COMMON NORMALS: normal respiratory effort, No retractions and No use of accessory muscles Cardio: COMMON NORMALS: no JVD and regular rate RATE: regular rate Extremity: NARRATIVE EXTREMITY EXAM: Patient with bilateral lower extremity edema-nonpitting. The bump patient indicates she feels underneath the skin to the right lower extremity is overly obvious on palpation but, I am more concerned about swelling noted to the anterior lateral, proximal and mid stovall region which is different in comparison to the left lower extremity. There is no overlying erythema, rash, bruising of note. Patient is tender when this area is pressed. Patient also has swelling noted to the dorsum of the feet with the right worse than left. Neuro: COMMON NORMALS: patient oriented x3 SENSORIUM/ORIENTATION: Yes alert Psych: COMMON NORMALS: mental status grossly normal, Normal thought process present, cooperative and normal affect THOUGHT PROCESS: Normal thought process present Skin: COMMON NORMALS: no rashes or lesions noted and turgor normal GENERAL SKIN EXAM: no rashes or lesions noted and turgor normal Course 2 Vital Signs: Vital signs: Vital Signs Temperature 98.2 F 12/04/23 19:51 Pulse Rate 82 12/04/23 19:51 Respiratory Rate 15 12/04/23 23:24 Blood Pressure 171/108 12/04/23 19:51 Pulse Oximetry 100 12/04/23 19:51 Oxygen Delivery Me thod Room Air 12/04/23 19:51 MDM - Extremity (Nontraumatic) Medical Decision Making Patient presents emergency department today for evaluation and treatment of a couple different concerns. Patient mentions recurrent episodes of tingling in her hands and feet which she believes is due to the spinal anesthesia she received when having her child in May. She was also concerned about increased edema in the lower extremity and pain that has developed. She states she feels a bump on the lateral, distal right leg which is tender and is concerned of this finding. She mentions concerns for blood clot. Patient's physical examination does not appear consistent with concerns for DVT. Location of the patient's bump does not correlate with the deep vein system and, I am not able to appreciate a significant bump on her at the skin. I do think she has increased swelling primarily in the anterior and lateral portions of the right stovall but, showing no signs of an acute compartment syndrome at this time. Patient still has blood flow down into the feet and is able to perform plantarflexion and dorsiflexion of the right foot. Given that I have more of a concern for soft tissue issues or potential development of deep fluid accumulation such as a cyst or an abscess, I did order a CT. CT was negative for signs of any acute abnormalities and also indicated no concerns for any blood flow issues. Patient has no signs of infection markers in the blood. Discussed with her my suspicion for dependent edema. Explained that being up on her feet and being out of the heat the last week or 2 could cause increased edema. I recommended she stay off of her feet the next few days with them up and elevated in cooler environments. I also encouraged compression garments for her edema. We will treat with muscle relaxer for musculoskeletal pain. I requested she have follow-up with her primary care doctor in the next couple days for recheck. She indicates that she would like to look for a new primary care doctor and I did offer to place a case management referral for her. In regards to the recurrent tingling and numbness, I do not think it has anything to do with cauda equina, spinal stenosis, etc. which would be an emergent concern. She has been having these off-and-on episodes now for many months. And while I do not think it is related to her spinal anesthesia from May, I do think she could benefit from further evaluation and recommended she get a referral to neurology from her primary care doctor. They may be able to evaluate her more thoroughly and even perform testing such as an EMG if necessary. Discussed all these recommendations with the patient including recommendations for treatment of her edema and musculoskeletal pain. They verbalized understanding and agreement to treatment plan. Differential Diagnosis Likely lower extremity edema; Unlikely herpes zoster, gout, cellulitis, superficial thrombophlebitis or deep vein thrombosis of lower extremity Lab Data 12/04/23 20:01 12/04/23 20:01 Radiology Impressions Lower Extremity CT 12/04/23 23:00 IMPRESSION: Unremarkable CT. Laboratory Results WBC 7.99 10^3/uL (3.29-11.43) 12/04/23 20:01 RBC 5.07 10^6/uL (3.85-5.65) 12/04/23 20:01 Hgb 13.90 g/dL (11.27-16.99) 12/04/23 20:01 Hct 43.6 % (36-47) 12/04/23 20:01 MCV 86.0 fl (85-98) 12/04/23 20:01 MCH 27.4 pg (27-33) 12/04/23 20:01 MCHC 31.9 g/dL (30-55) 12/04/23 20:01 RDW 13.4 % (12.1-15.1) 12/04/23 20:01 Plt Count 265 10^3/cmm (157-399) 12/04/23 20:01 MPV 10.0 fL (7.4-10.4) 12/04/23 20:01 Neut % (Auto) 60.7 % 12/04/23 20:01 Lymph % (Auto) 26.4 % 12/04/23 20:01 [place] % (Auto) 10.4 % 12/04/23 20:01 Eos % (Auto) 1.8 % 12/04/23 20:01 Baso % (Auto) 0.6 % 12/04/23 20:01 Neut # (Auto) 4.85 10^3/uL (1.8-7.7) 12/04/23 20:01 Lymph # (Auto) 2.1 10^3/uL (0.8-4.8) 12/04/23 20:01 [place] # (Auto) 0.8 10^3/uL (0.2-0.9) 12/04/23 20:01 Eos # (Auto) 0.1 10^3/uL (0.0-0.8) 12/04/23 20:01 Baso # (Auto) 0.1 10^3/uL (0.0-0.1) 12/04/23 20:01 Nucleated RBC % (auto) 0 % 12/04/23 20:01 Nucleated RBCs # 0.0 /100WBC 12/04/23 20:01 Sodium 139 mmol/L (136-145) 12/04/23 20:01 Potassium 3.9 mmol/L (3.5-5.1) 12/04/23 20:01 Chloride 104 mmol/L (98-107) 12/04/23 20:01 Carbon Dioxide 24 mmol/L (22-29) 12/04/23 20:01 Anion Gap 14.9 (5-19) 12/04/23 20:01 BUN 9 mg/dL (6-20) 12/04/23 20:01 Creatinine 0.8 mg/dL (0.5-0.9) 12/04/23 20:01 GFR Calculation 82.1 mL/min (90-130) L 12/04/23 20:01 Glucose 105 mg/dL (65-115) 12/04/23 20:01 Calculated Osmolality 287 mOsm/kg (285-295) 12/04/23 20:01 Calcium 9.0 mg/dL (8.5-10.5) 12/04/23 20:01 Total Bilirubin 0.2 mg/dL (0.15-1.2) 12/04/23 20:01 AST 15 U/L (0-32) 12/04/23 20:01 ALT 19 U/L (0-33) 12/04/23 20:01 Alkaline Phosphatase 73 U/L (35-105) 12/04/23 20:01 Total Protein 7.2 g/dL (6.6-8.7) 12/04/23 20:01 Albumin 3.9 g/dL (3.5-5.2) 12/04/23 20:01 Globulin 3.3 g/dL (1.3-4.6) 12/04/23 20:01 All radiology interpretation(s) finalized by discharge Discharge Plan Discharge Patient Disposition: Home Clinical Impression: Lower extremity edema, Myalgia, lower leg Condition: Stable Prescriptions: New tizanidine 4 mg capsule 4 mg PO Q8H PRN (Reason: muscle spasticity) Qty: 20 0RF No Action albuterol sulfate [ProAir HFA] 90 mcg/actuation HFA aerosol inhaler 1 - 2 inh inhalation Q4H PRN (Reason: shortness of breath or wheezing) Qty: 6.7 0RF pantoprazole 20 mg tablet,delayed release (DR/EC) 20 mg PO DAILY fluticasone propion-salmeterol [Advair Diskus] 250-50 mcg/dose blister with device See Rx Instructions inhalation BID Rx Instructions: Strenght unknown inhalation twice a day; sertraline 25 mg tablet 25 mg PO DAILY metoprolol succinate 50 mg tablet extended release 24 hr 50 mg PO DAILY Qty: 90 0RF (DME) OneTouch Ultra Test Strip See Rx Instructions .Route Qty: 100 3RF Rx Instructions: Check blood sugar fasting and 1 hour after meals norethindrone-e.estradiol-iron [[place] Fe 1.5/30 (28)] 1.5 mg-30 mcg (21)/75 mg (7) tablet See Rx Instructions .ROUTE .COMPLEX Qty: 84 0RF Dose Instruction: TAKE 1 TABLET BY MOUTH EVERY DAY Rx Instructions: TAKE 1 TABLET BY MOUTH EVERY DAY epinephrine 0.3 mg/0.3 mL auto-injector 0.3 mg IM Q10M PRN (Reason: hypersensitivity reaction) Qty: 2 0RF Rx Instructions: for 2 doses Percocet 10-325 mg tablet 1 tab PO BID PRN (Reason: pain) Qty: 30 0RF Discharge Orders: Discharge ED (Routine); Ordered 12/05/23 Ordered By: Pauly Layton Referrals: Sarabjit Golden DO [Primary Care Provider] - Discharge Diet: Usual diet Discharge Activity: Increase activity as tolerated Patient Instructions: Leg Edema (ED) Activity Restrictions/Additional Instructions: Lab work today shows no signs of any acute concerns. The scan of your leg revealed no signs of any blood flow issues, underlying pockets of fluid concerning for infection or cyst, and no signs of any musculoskeletal injury. At this time, we would like to address the edema by recommending you elevate your feet throughout the day. Stay in cooler environments. We also recommend wearing compression stockings to help diminish the swelling in your feet and lower legs. I am providing you medication sent to your pharmacy to help with your musculoskeletal pain in this area. We asked that you follow-up with your primary care doctor in the next few days for recheck to discuss whether or not edema is improved at that time. I have placed a request with our referral coordinators to try and get you in with a new primary care doctor. Your concerns regarding tingling and numbness in your hands and feet will most likely require some higher level nerve testing- most likely performed by neurology given the different neurological distribution sites where this could be originating from. Arms and hand nerves originate from your neck. Feet nerves originate from your lower back. I think would be a good idea to have someone who specializes in nerve pain evaluate the sensations. Coding Level of Care Code ED [employer] for [employer]
[2023-12-04] MEDS: iohexol 350 mg/mL 500 mL Btl (per mL) IV (23:49)
[2023-12-04 23:57] VITALS: BP 162/96; PULSE 64; RESP 16; O2SAT 97
[2023-12-05 01:44] VITALS: BP 150/86; PULSE 56; RESP 16; O2SAT 98
[2023-12-05] MEDS: tizanidine 4 mg Tablet 8 MG PO (01:53)
--- NOTE | 2023-12-05 12:36 | DCPLANNER ---
[facility] sent [facility] and to [facility] to establish PCP for follow up.
== END 2023-12-05 01:57 | disposition home or self-care (01) ==
PROVIDERS: Emergency Medicine; Emergency Provider Physician Assistant; PCP Electrodiagnostic Medicine
DX: R60.0 Localized edema (principal); M79.18 Myalgia, other site; I10 Essential (primary) hypertension
CPT/HCPCS: 36415; 73701; 80053; 85025; 96374; 99285; J3010; Q9967

== ENCOUNTER 2023-12-08 15:49 | Emergency (ER) | payer MEDICAID, SELFPAY ==
[2023-12-08 16:07] VITALS: BP 137/91; PULSE 93; RESP 17; TEMP 36.6; O2SAT 95; BMI 38.9
--- NOTE | 2023-12-08 16:37 | ECG_ITS ---
[facility] Test Date: 2023-12-08 Pat Name: Chloe Dorman Department: Room: Gender: Female [employer] Supervisor: : 1990 Requested By: Ondina Whitaker Order Number: [id number] Benjamin MD: Enrrique Blackburn M.D. Measurements Intervals [place] Rate: 92 P: 34 [place]: 124 QRS: 31 QRSD: 96 T: 53 QT: 342 QTc: 423 Interpretive Statements SINUS RHYTHM NONSPECIFIC T-WAVE ABNORMALITY Compared to ECG 10/17/2023 17:30:52 T-wave abnormality now present Short [place] interval no longer present ST (T wave) deviation no longer present Electronically Signed On 12-09-2023 9:09:43 CDT by Enrrique Blackburn M.D. [id number] f
--- NOTE | 2023-12-08 16:37 | XRR_ITS ---
PROCEDURE INFORMATION: Exam: XR Chest Exam date and time: 12/08/2023 5:04 PM Age: 33 years old Clinical indication: Pain; Chest pressure; Additional info: Chest pain TECHNIQUE: Imaging protocol: Radiologic exam of the chest. Views: 1 view. COMPARISON: CR XR chest 1V portable [id number] 10/17/2023 5:44 PM FINDINGS: Lungs: Unremarkable. No consolidation or mass. Pleural spaces: Unremarkable. No pleural effusion. No pneumothorax. Heart/Mediastinum: Unremarkable. No cardiomegaly. Bones/joints: Unremarkable. XR/XR chest 1V portable [id number] IMPRESSION: No acute findings.
[2023-12-08 17:08] VITALS: BP 154/100; PULSE 85; RESP 18; O2SAT 96
[2023-12-08 17:11] LABS: Basophils # 0.1 10^3/uL (0.0-0.1); Basophils % 0.5 %; Eosinophils # 0.3 10^3/uL (0.0-0.8); Eosinophils % 3.3 %; Hematocrit 48.1 % (36-47); Lymphocytes # 2.3 10^3/uL (0.8-4.8); Mean Corpuscular HGB Conc 31.6 g/dL (30-55); Mean Corpuscular Hemoglobin 27.1 pg (27-33); Mean Corpuscular Volume 85.7 fl (85-98); Mean Platelet Volume 10.4 fL (7.4-10.4); Monocytes # 0.6 10^3/uL (0.2-0.9); Monocytes % 5.7 %; Neutrophils # 6.97 10^3/uL (1.8-7.7); Neutrophils % 68.2 %; Nucleated Red Blood Cells % 0 %; Platelet Count 270 10^3/cmm (157-399); Red Blood Count 5.61 10^6/uL (3.85-5.65); Red Cell Distribution Width 13.3 % (12.1-15.1); White Blood Count 10.22 10^3/uL (3.29-11.43)
--- NOTE | 2023-12-08 17:13 | W.ED.CHESTPA ---
HPI - Chest Pain General: Chief Complaint: Chest Pain Stated Complaint: chest pain, sob, fast HB Time Seen by Provider: 12/08/23 16:58 History of Present Illness: 33-year-old female with a history of tobacco dependence, morbid obesity, hypertension, asthma and polycystic ovarian syndrome who is on control who presents emergency room with chest pain today. Sharp left-sided chest pain. She feels slightly short of breath. She was seen here in the emergency room a few days ago for lower extremity swelling and had a CT scan done that was negative for pathology. No cough. No abdominal pain. No nausea or vomiting. No altered mental status Related Data Home Medications Medication Instructions Recorded Confirmed fluticasone 250 mcg-salmeterol 50 See Rx Instructions inhalation BID 07/02/20 08/14/23 mcg/dose blistr powdr for inhalation (Advair Diskus) pantoprazole 20 mg tablet,delayed 20 mg PO DAILY 08/09/21 08/14/23 release sertraline 25 mg tablet 25 mg PO DAILY 10/17/22 08/14/23 Previous Rx's Medication Instructions Recorded albuterol sulfate 90 mcg/actuation 1 - 2 inh inhalation Q4H PRN 03/02/21 aerosol inhaler (ProAir HFA) shortness of breath or wheezing #6.7 grams metoprolol succinate 50 mg 50 mg PO DAILY #90 tabs 08/15/21 tablet,extended release 24 hr epinephrine 0.3 mg/0.3 mL 0.3 mg (0.3 mL) IM Q10M PRN 12/12/21 injection, auto-injector hypersensitivity reaction #2 ea blood sugar diagnostic (OneTouch #100 ea 01/04/23 Ultra Test strips) oxycodone-acetaminophen 10 mg-325 1 tab PO BID PRN pain #30 tabs 06/05/23 mg tablet (Percocet) norethindrone 1.5 mg-ethinyl See Rx Instructions .Route 10/08/23 estradiol 30 mcg(21)/iron 75 mg(7) .COMPLEX #84 tabs tablet (Blisovi Fe 1.5/30 (28)) tizanidine 4 mg capsule 4 mg PO Q8H PRN muscle spasticity 12/05/23 #20 caps Allergies Allergy/AdvReac Type Severity Reaction Status Date / Time venom-wasp Allergy ALGY-Anaphy Verified 12/08/23 16:14 laxis Review of Systems Narrative: Constitutional symptoms: Negative except as documented in HPI. Skin symptoms: Negative except as documented in HPI. Eye symptoms: Negative except as documented in HPI. ENMT symptoms: Negative except as documented in HPI. Respiratory symptoms: Negative except as documented in HPI. Cardiovascular symptoms: Negative except as documented in HPI. Gastrointestinal symptoms: Negative except as documented in HPI. Genitourinary symptoms: Negative except as documented in HPI. Musculoskeletal symptoms: Negative except as documented in HPI. Neurologic symptoms: Negative except as documented in HPI. Psychiatric symptoms: Negative except as documented in HPI. Endocrine symptoms: Negative except as documented in HPI. PFSH ED PFSH: Medical History Abnormal glucose tolerance affecting , antepartum Supervision of other normal No pertinent past medical history Denies diabetes, seizures, DVT/PE PCP: Dr. Golden Asthma, moderate persistent Diagnosed as a child however she outgrew it at the age of 9 or 11. She states that since her delivery in 2014 her symptoms have gotten worse and she has been on medication by her primary care provider. She does not have a block sorter. GERD (gastroesophageal reflux disease) Symptoms are much better since cholecystectomy however she does take pantoprazole daily to help prevent symptoms. PCOS (polycystic ovarian syndrome) Diagnosed in 2009 when she had irregular cycles 2 or 3 times a year and increased facial hair. -Has been on Metformin on and off for the last 10 years. Has had 30-day cycles since 2017. Benign essential hypertension Diagnosed in 2014 after the of her child. Had gestational hypertension which never resolved . She is on metoprolol managed by her primary care provider Prior to this and states that she was well controlled this Surgical History H/O section (12/06/14) x 2 12/06/2014---stat section for bradycardia (documented LTCS with vertical skin incision). Performed by Dr. Tran at [facility] [place]Double layer closure with inferior extension noted 06/26/2021--- repeat low transverse delivery at 37 weeks and 1 day when patient presented with spontaneous rupture of membranes with breech presentation. Surgery performed by Dr. Mcintyre at [facility] Hx of tonsillectomy At the age of 3-4 Hx laparoscopic cholecystectomy (05/14/18) Performed by Dr. Bermudez at [facility] Family History Mother Diabetes Heart attack Hypertension Father Diabetes Stroke Hypertension Heart attack Grandmother Hypertension MATERNAL Family/Other Breast cancer Paternal Aunt--dx age 80's Other S/P Denies family history of Colon cancer Ovarian cancer Hypercholesteremia Uterine cancer Thyroid disease Physical Exam Narrative: EXAM NARRATIVE: General: Alert, no acute distress. Skin: Warm, dry. Head: Normocephalic, atraumatic. Neck: Supple, trachea midline. Eye: Extraocular movements are intact. Ears, nose, mouth and throat: mucosa moist. Cardiovascular: Regular, Normal peripheral perfusion. Respiratory: Lungs are clear to auscultation, respirations are non-labored, breath sounds are equal, Symmetrical chest wall expansion. Gastrointestinal: Soft, Nontender, Non distended Musculoskeletal: Normal ROM, no deformity. Neurological: Alert and oriented, No focal neurological deficit observed. Psychiatric: Cooperative, appropriate mood & affect. Course Vital Signs: Vital signs: Vital Signs Temperature 98 F 12/08/23 16:07 Pulse Rate 82 12/08/23 19:31 Respiratory Rate 16 12/08/23 19:31 Blood Pressure 178/127 12/08/23 19:31 Pulse Oximetry 98 12/08/23 19:31 Oxygen Delivery Me thod Room Air 12/08/23 19:31 MDM - Chest Pain Medical Decision Making Differential diagnosis for patient with chest pain includes but is not limited to and based on the above HPI, review of systems and physical exam: Pneumonia. unstable angina. angina. Acute coronary syndrome / MT. Pulmonary embolism. Costochondritis / musculoskeletal. Pleurisy. Pericarditis. Esophageal spasm. Pancreatis. Cholecystitis. Orders placed to evaluate differential diagnosis based on the above differential, HPI and physical exam EKG: Time 1858. Rate 77. Normal sinus rhythm, No ST-T changes, no ectopy, normal NJ & QRS intervals, This was reviewed and interpreted by myself the ER physician at 1859 Lab Review: Laboratory results were reviewed and interpreted by myself the emergency room physician. Lab work is unremarkable. No leukocytosis. No anemia. No renal failure. D-dimer slightly elevated so a CT of the chest with PE protocol was ordered CT of the chest with PE protocol: No acute process. This was reviewed and interpreted by myself the emergency room physician. I also reviewed the radiology report. I reviewed the patient's medical record. Reexamination: Patient remained stable. No increased work of breathing. No altered mental status. No focal motor deficits. Assessment and plan: Noncardiac chest pain - Discharged home - Discussed findings and plan with patient. Answered any questions. - All laboratory values were reviewed and interpreted personally by myself, the ER physician - All imaging was reviewed and interpreted personally by myself, the ER physician. - Evaluation and treatment of this problem were appropriate in the emergency setting Lab Data 12/08/23 17:05 12/08/23 17:05 Radiology Impressions Chest X-Ray 12/08/23 16:37 IMPRESSION: No acute findings. Chest CTA 12/08/23 17:44 IMPRESSION: 1. No evidence of pulmonary embolism. 2. No acute cardiopulmonary disease. Laboratory Results WBC 10.22 10^3/uL (3.29-11.43) 12/08/23 17:05 RBC 5.61 10^6/uL (3.85-5.65) 12/08/23 17:05 Hgb 15.20 g/dL (11.27-16.99) 12/08/23 17:05 Hct 48.1 % (36-47) H 12/08/23 17:05 MCV 85.7 fl (85-98) 12/08/23 17:05 MCH 27.1 pg (27-33) 12/08/23 17:05 MCHC 31.6 g/dL (30-55) 12/08/23 17:05 RDW 13.3 % (12.1-15.1) 12/08/23 17:05 Plt Count 270 10^3/cmm (157-399) 12/08/23 17:05 MPV 10.4 fL (7.4-10.4) 12/08/23 17:05 Neut % (Auto) 68.2 % 12/08/23 17:05 Lymph % (Auto) 22.0 % 12/08/23 17:05 Hettinger % (Auto) 5.7 % 12/08/23 17:05 Eos % (Auto) 3.3 % 12/08/23 17:05 Baso % (Auto) 0.5 % 12/08/23 17:05 Neut # (Auto) 6.97 10^3/uL (1.8-7.7) 12/08/23 17:05 Lymph # (Auto) 2.3 10^3/uL (0.8-4.8) 12/08/23 17:05 Hettinger # (Auto) 0.6 10^3/uL (0.2-0.9) 12/08/23 17:05 Eos # (Auto) 0.3 10^3/uL (0.0-0.8) 12/08/23 17:05 Baso # (Auto) 0.1 10^3/uL (0.0-0.1) 12/08/23 17:05 Nucleated RBC % (auto) 0 % 12/08/23 17:05 Nucleated RBCs # 0.0 /100WBC 12/08/23 17:05 D-Dimer 0.85 ug/mLFEU (0-0.59) H 12/08/23 17:05 Sodium 142 mmol/L (136-145) 12/08/23 17:05 Potassium 4.2 mmol/L (3.5-5.1) 12/08/23 17:05 Chloride 105 mmol/L (98-107) 12/08/23 17:05 Carbon Dioxide 26 mmol/L (22-29) 12/08/23 17:05 Anion Gap 15.2 (5-19) 12/08/23 17:05 BUN 12 mg/dL (6-20) 12/08/23 17:05 Creatinine 0.7 mg/dL (0.5-0.9) 12/08/23 17:05 GFR Calculation 95.8 mL/min (90-130) 12/08/23 17:05 Glucose 96 mg/dL (65-115) 12/08/23 17:05 Calculated Osmolality 294 mOsm/kg (285-295) 12/08/23 17:05 Calcium 9.1 mg/dL (8.5-10.5) 12/08/23 17:05 Total Bilirubin 0.2 mg/dL (0.15-1.2) 12/08/23 17:05 AST 18 U/L (0-32) 12/08/23 17:05 ALT 22 U/L (0-33) 12/08/23 17:05 Alkaline Phosphatase 79 U/L (35-105) 12/08/23 17:05 Troponin T Baseline < 6 ng/L (0-10) 12/08/23 17:05 C-Reactive Protein 12.5 mg/L (0.0-4.9) H 12/08/23 17:05 NT-Pro-B Natriuret Pep < 36 pg/mL (0-125) 12/08/23 17:05 Total Protein 7.4 g/dL (6.6-8.7) 12/08/23 17:05 Albumin 4.1 g/dL (3.5-5.2) 12/08/23 17:05 Globulin 3.3 g/dL (1.3-4.6) 12/08/23 17:05 HCG, Qual Negative (Negative) 12/08/23 17:05 All radiology interpretation(s) finalized by discharge Discharge Plan Discharge Patient Disposition: Home Clinical Impression: Non-cardiac chest pain Condition: Stable Prescriptions: No Action albuterol sulfate [ProAir HFA] 90 mcg/actuation HFA aerosol inhaler 1 - 2 inh inhalation Q4H PRN (Reason: shortness of breath or wheezing) Qty: 6.7 0RF pantoprazole 20 mg tablet,delayed release (DR/EC) 20 mg PO DAILY fluticasone propion-salmeterol [Advair Diskus] 250-50 mcg/dose blister with device See Rx Instructions inhalation BID Rx Instructions: Strenght unknown inhalation twice a day; sertraline 25 mg tablet 25 mg PO DAILY metoprolol succinate 50 mg tablet extended release 24 hr 50 mg PO DAILY Qty: 90 0RF (DME) OneTouch Ultra Test Strip See Rx Instructions .Route Qty: 100 3RF Rx Instructions: Check blood sugar fasting and 1 hour after meals norethindrone-e.estradiol-iron [Blisovi Fe 1.5/30 (28)] 1.5 mg-30 mcg (21)/75 mg (7) tablet See Rx Instructions .ROUTE .COMPLEX Qty: 84 0RF Dose Instruction: TAKE 1 TABLET BY MOUTH EVERY DAY Rx Instructions: TAKE 1 TABLET BY MOUTH EVERY DAY epinephrine 0.3 mg/0.3 mL auto-injector 0.3 mg IM Q10M PRN (Reason: hypersensitivity reaction) Qty: 2 0RF Rx Instructions: for 2 doses Percocet 10-325 mg tablet 1 tab PO BID PRN (Reason: pain) Qty: 30 0RF tizanidine 4 mg capsule 4 mg PO Q8H PRN (Reason: muscle spasticity) Qty: 20 0RF Discharge Orders: Discharge ED (Routine); Ordered 12/08/23 Ordered By: Ondina Davis Referrals: Sarabjit Golden DO [Primary Care Provider] - Discharge Diet: Usual diet Discharge Activity: Increase activity as tolerated Patient Instructions: Noncardiac Chest Pain (ED), Opioid Safety Activity Restrictions/Additional Instructions: Thank you for choosing [facility] for your healthcare needs today. Please realize this is an emergency room and that we are providing you with a medical screening exam and this may not be complete and all inclusive of all the testing and or work up that you may need to determine your ailment or severity of your illness. You have been screened and evaluated and felt safe for discharge. Health conditions do change or evolve sometimes and as such it is important that you follow up with your Primary Doctor to be re checked, 3-5 days is a general good time frame for follow up. You are always welcome to return to the ED for re assessment if your symptoms are worsening or you have new concerns Coding Level of Care Code ED Ham Stripper for Mane Damon
[2023-12-08 17:26] LABS: HCG, Serum Qual Negative (Negative)
[2023-12-08 17:29] LABS: D Dimer 0.85 ug/mLFEU (0-0.59)
[2023-12-08 17:35] LABS: Troponin(5th) Baseline < 6 ng/L (0-10)
[2023-12-08 17:40] LABS: Alanine Aminotransferase 22 U/L (0-33); Albumin Level 4.1 g/dL (3.5-5.2); Alkaline Phosphatase 79 U/L (35-105); Aspartate Amino Transferase 18 U/L (0-32); Blood Urea Nitrogen 12 mg/dL (6-20); C Reactive Protein 12.5 mg/L (0.0-4.9); Calcium 9.1 mg/dL (8.5-10.5); Carbon Dioxide 26 mmol/L (22-29); Chloride 105 mmol/L (98-107); Creatinine Clr Calc Pharmacy 166.4362; Globulin 3.3 g/dL (1.3-4.6); Glomerular Filtration Rate 95.8 mL/min (90-130); Glucose 96 mg/dL (65-115); NT Pro B Type Natriuretic Pept < 36 pg/mL (0-125); Osmolality Calculated 294 mOsm/kg (285-295); Sodium 142 mmol/L (136-145); Total Bilirubin 0.2 mg/dL (0.15-1.2); Total Protein 7.4 g/dL (6.6-8.7)
--- NOTE | 2023-12-08 17:44 | CTR_ITS ---
PROCEDURE INFORMATION: Exam: CTA Chest With Contrast Exam date and time: 12/08/2023 6:37 PM Age: 33 years old Clinical indication: Pain and abnormal findings; Abnormal diagnostic tests; Elevated d-dimer; Shortness of breath; Left-sided; Prior surgery; Surgery date: 6+ months; Surgery type: Gb; Patient HX: Left sided chest pain with SOB. Dimer 0.85; Additional info: Chest pain, elevated d-dimer, multiple risk factors TECHNIQUE: Imaging protocol: Computed tomographic angiography of the chest with contrast. Exam focused on the arteries. 3D rendering (Not supervised by radiologist): MIP and/or 3D reconstructed images were created by the technologist. Radiation optimization: All CT scans at this facility use at least one of these dose optimization techniques: automated exposure control; mA and/or kV adjustment per patient size (includes targeted exams where dose is matched to clinical indication); or iterative reconstruction. Contrast material: OMNI 350; Contrast volume: 68 ml; Contrast route: INTRAVENOUS (IV); COMPARISON: CR (CHEST, ) 12/08/2023 5:04 PM RADIATION DOSE METRICS: Total DLP (mGy-cm): 503.69 FINDINGS: Limitations: Suboptimal contrast opacification of the pulmonary arteries. Pulmonary arteries: The pulmonary arteries are adequately visualized to the proximal segmental level. Main pulmonary artery is normal in size. There is no evidence of right heart strain. Aorta: The aorta is normal in course and caliber. No significant atherosclerotic calcifications are present. Lungs: Mild dependent changes in the posterior lower lobes. No pulmonary consolidation or pulmonary infarct. Pleural spaces: No pleural effusion or pneumothorax. Heart: Heart size is within normal limits. There is no pericardial effusion or pericardial thickening. Coronary arteries: No coronary artery calcification. Lymph nodes: No enlarged lymph nodes are identified. Bones/joints: No acute osseous abnormalities are seen. Soft tissues: The soft tissues are within normal limits. CT/CT angio chest PE protcl [id number] IMPRESSION: 1. No evidence of pulmonary embolism. 2. No acute cardiopulmonary disease.
[2023-12-08 17:50] LABS: Anion Gap 15.2 (5-19); Potassium 4.2 mmol/L (3.5-5.1)
[2023-12-08 18:00] VITALS: BP 137/48; PULSE 75; RESP 16; O2SAT 97
--- NOTE | 2023-12-08 18:37 | ECG_ITS ---
[facility] Test Date: 2023-12-08 Pat Name: Clhoe Dorman Department: Room: Gender: Female Extension Associate: : 1990 Requested By: Ondina Whitaker Order Number: [id number] Cassidy MD: Enrrique Blackburn M.D. Measurements Intervals [employer] Rate: 77 P: 19 IL: 135 QRS: 29 QRSD: 108 T: 42 QT: 387 QTc: 440 Interpretive Statements SINUS RHYTHM Compared to ECG 12/08/2023 15:56:47 T-wave abnormality no longer present Electronically Signed On 12-09-2023 9:12:59 CDT by Enrrique Blackburn M.D. [id number]
[2023-12-08] MEDS: iohexol 350 mg/mL 500 mL Btl (per mL) IV (18:39)
[2023-12-08 19:31] VITALS: BP 178/127; PULSE 82; RESP 16; O2SAT 98
[2023-12-08 20:00] VITALS: BP 142/82; PULSE 71; RESP 16; O2SAT 99
[2023-12-08 20:10] VITALS: BP 142/82; PULSE 71; RESP 16; TEMP 36.6; O2SAT 99
== END 2023-12-08 20:17 | disposition home or self-care (01) ==
PROVIDERS: Emergency Provider Emergency Medicine; PCP Electrodiagnostic Medicine
DX: R07.89 Other chest pain (principal); I10 Essential (primary) hypertension
CPT/HCPCS: 71045; 71275; 80053; 83880; 84484; 84703; 85025; 85378; 86140; 93005; 99285; Q9967

== ENCOUNTER → 2024-05-06 12:28 | Outpatient (BNVA) | payer MEDICAID, SELFPAY | PROVIDERS: PCP Electrodiagnostic Medicine; Referring Provider Electrodiagnostic Medicine; Visit Provider Psychiatry & Neurology Neurology | DX: M48.00 Spinal stenosis, site unspecified; R29.898 Other symptoms and signs involving the musculoskeletal system | CPT/HCPCS: 36415; 82306; 82607; 82746; 83735; 83921; 84439; 84443; 84481 ==

== ENCOUNTER 2024-07-30 10:39 | Outpatient (CLI) | payer MEDICAID, SELFPAY | END 2024-07-30 10:40 | disposition home or self-care (01) | LOC: LAB 10:40 | PROVIDERS: PCP Electrodiagnostic Medicine; Visit Provider Nurse Practitioner | DX: Z01.818 Encounter for other preprocedural examination (principal) | CPT/HCPCS: 36415; 80053; 81003; 85025 ==

== ENCOUNTER 2024-08-14 05:48 | Day surgery (SDC) | payer MEDICAID, SELFPAY ==
[2024-07-30 11:03] LABS: Add Urine Microscopic? NO
[2024-07-30 11:07] LABS: Basophils # 0.1 10^3/uL (0.0-0.1); Basophils % 0.8 %; Eosinophils # 0.2 10^3/uL (0.0-0.8); Eosinophils % 2.1 %; Hematocrit 44.8 % (36-47); Lymphocytes # 2.2 10^3/uL (0.8-4.8); Lymphocytes % 21.7 %; Mean Corpuscular Hemoglobin 26.3 pg (27-33); Mean Corpuscular Volume 84.8 fl (85-98); Monocytes # 0.6 10^3/uL (0.2-0.9); Monocytes % 5.5 %; Neutrophils # 7.06 10^3/uL (1.8-7.7); Neutrophils % 69.6 %; Nucleated Red Blood Cells % 0 %; Platelet Count 288 10^3/cmm (157-399); Red Blood Count 5.28 10^6/uL (3.85-5.65); Red Cell Distribution Width 13.6 % (12.1-15.1); White Blood Count 10.14 10^3/uL (3.29-11.43)
[2024-07-30 11:09] LABS: Bilirubin Urine Neg (Negative); Blood Urine Neg (Negative); Glucose Urine UA Norm (Normal); Ketones Urine Negative (Negative); Leukocyte Esterase Urine Negative (Negative); Nitrate Urine Negative (Negative); Protein Urine Neg (Negative); Urine Appearance Clear (CLEAR); Urine Color Yellow (Yellow); Urobilinogen Urine Norm (Negative); pH Urine 5 (5-7)
[2024-07-30 11:11] LABS: Charge for UA Resulting for Rev
[2024-07-30 11:31] LABS: Alanine Aminotransferase 16 U/L (0-33); Albumin Level 3.8 g/dL (3.5-5.2); Alkaline Phosphatase 74 U/L (35-105); Aspartate Amino Transferase 13 U/L (0-32); Blood Urea Nitrogen 8 mg/dL (6-20); Calcium 9.1 mg/dL (8.5-10.5); Carbon Dioxide 23 mmol/L (22-29); Chloride 107 mmol/L (98-107); Globulin 2.9 g/dL (1.3-4.6); Glomerular Filtration Rate 95.2 mL/min (90-130); Glucose 112 mg/dL (65-115); Osmolality Calculated 289 mOsm/kg (285-295); Sodium 140 mmol/L (136-145); Total Bilirubin 0.2 mg/dL (0.15-1.2); Total Protein 6.7 g/dL (6.6-8.7)
[2024-07-30 12:23] LABS: Anion Gap 14.1 (5-19); Potassium 4.1 mmol/L (3.5-5.1)
[2024-08-14] VITALS (10 sets, daily range): BP systolic 120–165; BP diastolic 79–106; PULSE 69–92; RESP 13–18; TEMP 36.1–36.4; O2SAT 92–97; BMI 41.1
[2024-08-14] MEDS: gabapentin 300 mg Capsule PO (06:34)
[2024-08-14] MEDS: CELEcoxib 200 mg Capsule 400 MG PO (06:34)
[2024-08-14] MEDS: sodium chloride 0.9% 1,000 ML 30 ML IV (06:35)
[2024-08-14] MEDS: acetaminophen 1,000 MG/100 ML PIGGYBACK 400 MG IV (06:35)
--- NOTE | 2024-08-14 06:56 | W.PM.OPSUD ---
Surgery/Procedure H&P Update DATE OF PROCEDURE: August 14, 2024 DATE H&P PERFORMED: 08/05/24 H&P UPDATE INFORMATION: I have reviewed H&P completed within last 30 days, I have examined patient prior to procedure, No changes to prior documentation, H&P is in [facility] EMR on date indicated and Risks and benefits of the procedure reviewed PREOP DIAGNOSIS: Right Carpal Tunnel PLANNED PROCEDURE: Operation Date: 08/14/24 07:00 Proposed Procedures p Right Carpal Tunnel Release(Right) - Ruba Lou MD Related Problem List Diagnoses (1) Carpal tunnel syndrome on right:
[2024-08-14] MEDS: ceFAZolin 3,000 MG in sodium chloride 0.9% (100 ml) 100 ML 200 MG IV (07:02)
[2024-08-14] MEDS: BUPivacaine 0.5% INJ 30 mL XX (07:24)
--- NOTE | 2024-08-14 07:50 | ANES.PREANE2 ---
Pre-Anesthetic Assessment Height/Weight: Height 1.8 m Weight 133.81 kg Temp Pulse Resp BP Pulse Ox O2 Del Method 97.6 F 70 18 165/106 97 Room Air 08/14/24 06:22 08/14/24 06:22 08/14/24 06:22 08/14/24 06:22 08/14/24 06:22 08/14/24 06:22 Preop Diagnosis: Right Carpal Tunnel Operation Date: 08/14/24 07:00 Proposed Procedures p Right Carpal Tunnel Release(Right) - Ruba Lou MD Familial anesthetic complications: none Was Beta Gavin taken within 24 hours: N/A Was Clonidine taken within 24 hours: N/A Last intake: Intake Last Liquid Date 08/13/24 Last Liquid Time 23:00 Last Solid Date 08/13/24 Last Solid Time 16:00 Social Tobacco and No alcohol Exam alert, oriented x 3 and regular rate & rhythm Airway Submandibular: within normal limits Cervical ROM: within normal limits Mallampati: Class II Dentition: full Pulmonary Asthma CV/HEM Hypertension GI Gastroesophageal Reflux Disease Neuropsych Anxiety, Depression and Neuropathy Anesthetic Plan ASA status: 3 Anesthesia: General Medications/Allergies Home Medications ?Medication ?Instructions ?Recorded ?Confirmed ?Last Taken ?Type fluticasone 250 mcg-salmeterol 50 See Rx Instructions inhalation BID 07/02/20 08/13/24 08/13/24 History mcg/dose blistr powdr for inhalation (Advair Diskus) albuterol sulfate 90 mcg/actuation 1 - 2 inh inhalation Q4H PRN 03/02/21 08/14/24 08/14/24 04:40 Rx aerosol inhaler (ProAir HFA) shortness of breath or wheezing #6.7 grams metoprolol succinate 50 mg 50 mg PO DAILY #90 tabs 08/15/21 08/14/24 08/14/24 04:30 Rx tablet,extended release 24 hr epinephrine 0.3 mg/0.3 mL 0.3 mg (0.3 mL) IM Q10M PRN 12/12/21 08/13/24 Unknown Rx injection, auto-injector hypersensitivity reaction #2 ea blood sugar diagnostic (OneTouch #100 ea 01/04/23 08/06/24 Unknown Rx Ultra Test strips) pantoprazole 40 mg tablet,delayed 40 mg PO DAILY 01/11/2108/13/24 08/13/24 History release sertraline 100 mg tablet 100 mg PO DAILY 05/06/24 08/13/24 08/13/24 History cholecalciferol (vitamin D3) 1,250 50,000 unit PO .weekly #14 caps 05/07/24 08/13/24 08/12/24 Rx mcg (50,000 unit) capsule evening primrose oil 500 mg capsule 500 mg PO DAILY 06/06/24 08/13/24 08/13/24 History norethindrone 1.5 mg-ethinyl See Rx Instructions .Route 07/01/24 08/13/24 08/13/24 Rx estradiol 30 mcg(21)/iron 75 mg(7) .COMPLEX #84 tabs tablet (Blisovi Fe 1.5/30 (28)) Allergies Allergy/AdvReac Type Severity Reaction Status Date / Time venom-wasp Allergy ALGY-Anaphy Verified 08/06/24 15:28 laxis Current Medications Generic Name Dose Route Start Last Admin Trade Name Freq PRN Reason Stop Dose Admin Sodium Chloride 1,000 mls @ 30 mls/hr 08/14/24 06:15 08/14/24 06:35 Sodium Chloride 0.9% IV 08/15/24 06:14 30 mls/hr .Q24H JANET Administration PFSH Anesthesia Medical History Gestational diabetes No pertinent past medical history Denies diabetes, seizures, DVT/PE PCP: Dr. Golden Asthma, moderate persistent Diagnosed as a child however she outgrew it at the age of 9 or 11. She states that since her delivery in 2014 her symptoms have gotten worse and she has been on medication by her primary care provider. She does not have a assembler engine. GERD (gastroesophageal reflux disease) Symptoms are much better since cholecystectomy however she does take pantoprazole daily to help prevent symptoms. PCOS (polycystic ovarian syndrome) Diagnosed in 2009 when she had irregular cycles 2 or 3 times a year and increased facial hair. -Has been on Metformin on and off for the last 10 years. Has had 30-day cycles since 2017. Benign essential hypertension Diagnosed in 2014 after the of her child. Had gestational hypertension which never resolved . She is on metoprolol managed by her primary care provider Prior to this and states that she was well controlled this Surgical History H/O section (12/06/14) x 3 12/06/2014---stat section for bradycardia (documented LTCS with vertical skin incision). [place] [facility] [place] with inferior extension noted 06/26/2021--- repeat low transverse delivery at 37 weeks and 1 day when patient presented with spontaneous rupture of membranes with breech presentation. Surgery performed [place] Dr. Mcintyre at [facility] [place]- Dr Mercer Hx of tonsillectomy At the age of 3-4 Hx laparoscopic cholecystectomy (05/14/18) Per[place] Dr. Bermudez [place] [facility] [place] Family History Mother Diabetes Heart attack Hypertension Father Diabetes Stroke Hypertension Heart attack Grandmother Hypertension MATERNAL Family/Other Breast cancer Paternal Aunt--dx age 80's Other S/P Denies family history of Colon cancer Ovarian cancer Hypercholesteremia Uterine cancer Thyroid disease Social History Smoking and tobacco/nicotine status: never used tobacco/nicotine Quit status (tobacco/nicotine): not considering quitting Second hand smoke exposure: Yes Alcohol intake: current Alcohol intake frequency: holidays/special occasions only Female Reproductive History Date of last menstrual period: 08/13/24 Data Anesthesia 07/30/24 10:56 07/30/24 10:56 Cardiac Studies: Echocardiogram 01/31/21
[2024-08-14 08:54] LABS: OR HCG Qualitative Urine Negative (Negative)
--- NOTE | 2024-08-14 08:57 | P.OP_ITS ---
Operative Report Date of procedure: August 14, 2024 Pre-op diagnosis: Right carpal tunnel syndrome Post-op diagnosis: Right carpal tunnel syndrome Post-op findings: Compression across the carpal canal on the median nerve Procedure done: Right carpal tunnel release Implants: None Specimens removed/disposition: None Pathology: None Surgeon: Ruba Lou MD Personal Development Mentor: None Anesthesia: General (Per LMA, ASA 3) Estimated blood loss (mL): 2 Tourniquet time (min): 22 (At 250 mmHg) IV fluids (mL): 800 Urine output (mL): 0 (No Mackey) Complications: None Findings: Compression across the carpal canal on the median nerve with no evidence of bony encroachment Condition: stable Disposition: PACU (Then return to same-day surgery for discharge to home) Brief History: This 34-year-old woman presents today for right carpal tunnel release. She had nerve conduction studies demonstrating bilateral carpal tunnel syndrome at least to a moderate degree. After discussion in the office, the patient wished to proceed with carpal tunnel release. Risks and complications were discussed with her. Consents were signed preoperatively in the office and reviewed with her on the day of surgery. Questions were answered at that time. Procedure: The patient was brought to the operating theater. The patient had a general anesthesia per LMA, ASA 3. The tourniquet was elevated to 250 mmHg for a total tourniquet time of 22 minutes. The patient was also given Ancef 3 g adjusted to the patient's weight preoperatively. The arm was then prepped and draped with DuraPrep in usual fashion with the arm draped free. A surgical pause was performed. At the time, the surgical pause, we confirmed the site and side of surgery. We also confirmed the patient's identity, appropriate and timely administration of preoperative antibiotics and preoperative surgical markings. An incision was then made along the thenar crease. The incision crossed the wrist joint in a curvilinear fashion. Dissection continued through skin and soft tissues using a scalpel. The palmaris longus was identified along with the transverse carpal ligament. Each of these was released carefully to avoid injury to the median nerve. We were able to dissect gently into the carpal canal which was noted to be quite tight with significant compression across the median nerve. The nerve was visualized and was an hourglass shape. The canal was subsequently palpated to assure there was no bony encroachment upon the canal. There was a quite thickened fibrous tissue within the canal, and this was opened longitudinally as well. The canal was then palpated distally and proximally to assure that my small finger was passed easily without impingement. Finding this to be so, attention was directed to closure. The wound was irrigated with ropivacaine plain. It was then closed with 3-0 nylon in an interrupted mattress fashion. Sterile dressing was then placed consisting of Dermabond, OpSite, fluffed fluffs, sterile soft roll and an Kvng wrap. The tourniquet was released after 22 minutes. There were no complications. There were no specimens. The procedure was well tolerated. Plan is the patient will be discharged home. Related Problem List Diagnoses (1) Carpal tunnel syndrome on right:
--- NOTE | 2024-08-14 12:57 | ANE.PACU2 ---
Inpatient post-anesthesia follow up: Airway intact: Yes Vital signs: Temperature 97.5 F Pulse Rate 69 Respiratory Rate 18 Blood Pressure 128/89 Pulse Oximetry 94 Oxygen Delivery Me thod Room Air Oxygen Flow Rate 6 Fraction of Inspir ed Oxygen Hydration adequate: Yes Nausea and vomiting: No Pain level: 2 Mental status: Baseline
== END 2024-08-14 09:25 | disposition home or self-care (01) ==
PROVIDERS: Anesthesiology; Nurse Practitioner; PCP Electrodiagnostic Medicine; Visit Provider Specialist
PROC: (CPT 64721; principal; 2024-08-14 07:00)
DX: G56.03 Carpal tunnel syndrome, bilateral upper limbs (principal); I10 Essential (primary) hypertension; K21.9 Gastro-esophageal reflux disease without esophagitis; J45.40 Moderate persistent asthma, uncomplicated; F17.200 Nicotine dependence, unspecified, uncomplicated; Z79.899 Other long term (current) drug therapy
CPT/HCPCS: 64721; 36415; 80053; 81003; 81025; 85025; J0131; J0690; J1100; J2250; J2371; J2405; J2704; J3010; J3490; J7030; J9999

== ENCOUNTER 2024-11-11 13:23 | Outpatient (CLI) | payer MEDICAID, SELFPAY | END 2024-11-11 13:24 | disposition home or self-care (01) | LOC: SLEEP 13:24 | PROVIDERS: PCP Electrodiagnostic Medicine; Visit Provider Electrodiagnostic Medicine | DX: G47.33 Obstructive sleep apnea (adult) (pediatric) (principal); G47.36 Sleep related hypoventilation in conditions classified elsewhere | CPT/HCPCS: G0399 ==